=== PATIENT | male | born 1945 | race Caucasian/White ===

== ENCOUNTER 2017-02-26 22:11 | Inpatient (IN) | payer MEDICARE ==
[2017-02-26] MEDS ORDERED: KETOROLAC 30 MG/ML 1 ML VIAL IVP STA (22:30)
[2017-02-26] MEDS ORDERED: SODIUM CHLORIDE 0.9% 500 ML IV STA (22:30)
--- NOTE | 2017-02-26 22:33 | ED ---
General Adult HPI - General Chief complaint: Urogenital Stated complaint: flank pain/blood in urine Time Seen by Provider: 02/26/17 22:15 Source: patient, family, RN notes reviewed Mode of arrival: wheelchair Limitations: no limitations - History of Present Illness Initial comments: This is a 71-year-old male who presents emergency Department with a past HISTORY significant for Parkinson's syndrome and hypertension. Patient states earlier in the day started having hematuria and it's slowly gone away and then later this evening he started having some right flank pain which radiated down into his testicles. Patient states is a 7 out of 10 pain patient states his urine remains a little cloudy but he does not notice any red tinge to it anymore. Patient states he also has some neck pain on the right. Patient states pressing on his abdomen or back does not appear to make the pain worse. Patient denies any recent fever or chills. Patient denies any history of kidney stones. Patient denies any upper abdominal pain. Patient denies any nausea vomiting diarrhea. Patient denies any chest pain difficulty breathing shortness of breath. Patient denies any recent injury or trauma. Patient states he wasn't lifting anything heavy today. Patient states he is not on any blood thinners - Related Data Home Medications Medication Instructions Recorded Confirmed Amantadine HCl [Symmetrel] 100 mg PO BID 02/26/17 02/26/17 Atenolol [Tenormin] 50 mg PO DAILY 02/26/17 02/26/17 Baclofen [Lioresal] 20 mg PO HS 02/26/17 02/26/17 Carbidopa/Levodopa [Sinemet CR 1 tab PO QID 02/26/17 02/26/17 50-200 mg] Citalopram Hydrobromide [CeleXA] 10 mg PO DAILY 02/26/17 02/26/17 Allergies Allergy/AdvReac Type Severity Reaction Status Date / Time ciprofloxacin AdvReac Confusion Verified 02/26/17 22:33 nitrofurantoin AdvReac Confusion Verified 02/26/17 22:33 [From Macrobid] Review of Systems ROS Statement: Those systems with pertinent positive or pertinent negative responses have been documented in the HPI. ROS Other: All systems not noted in ROS Statement are negative. Past Medical History Past Medical History: Hypertension Additional Past Medical History / Comment(s): parkinson's, sinusitis, History of Any Multi-Drug Resistant Organisms: None Reported Past Surgical History: Adenoidectomy, Tonsillectomy Additional Past Surgical History / Comment(s): nasal polyp, colonoscopy Past Psychological History: No Psychological Hx Reported Smoking Status: Former smoker Past Alcohol Use History: Occasional Past Drug Use History: None Reported General Exam - General Exam Comments Initial Comments: GENERAL: Patient is well-developed and well-nourished. Patient is nontoxic and well- hydrated and is in mild distress. ENT: Neck is soft and supple. No significant lymphadenopathy is noted. Oropharynx is clear. Moist mucous membranes. Neck has full range of motion without eliciting any pain. EYES: The sclera were anicteric and conjunctiva were pink and moist. Extraocular movements were intact and pupils were equal round and reactive to light. Eyelids were unremarkable. PULMONARY: Unlabored respirations. Good breath sounds bilaterally. No audible rales rhonchi or wheezing was noted. CARDIOVASCULAR: There is a regular rate and rhythm without any murmurs gallops or rubs. ABDOMEN: Soft and nontender with normal bowel sounds. No palpable organomegaly was noted. There is no palpable pulsatile mass. SKIN: Skin is clear with no lesions or rashes and otherwise unremarkable. NEUROLOGIC: Patient is alert and oriented x3. Cranial nerves II through XII are grossly intact. Motor and sensory are also intact. Normal speech, volume and content. Patient has slight tremors diffusely. MUSCULOSKELETAL: Normal extremities with adequate strength and full range of motion. No lower extremity swelling or edema. No calf tenderness. LYMPHATICS: No significant lymphadenopathy is noted PSYCHIATRIC: Normal psychiatric evaluation. Limitations: no limitations Course Vital Signs 02/26/17 02/26/17 02/26/17 22:13 22:28 23:18 Temperature 97.4 F L 97.8 F Pulse Rate 58 L 69 Respiratory 18 14 Rate Blood Pressure 212/89 162/118 142/63 O2 Sat by Pulse 96 95 Oximetry 02/27/17 00:07 Temperature 98.5 F Pulse Rate 76 Respiratory 18 Rate Blood Pressure 142/65 O2 Sat by Pulse 93 L Oximetry Medical Decision Making - Medical Decision Making Patient's urine came back infected at 12:15 at this point time he met SIRS criteria and a lactic acid was drawn. Patient received 2 g Rocephin. Patient received 1.5 L of fluid. - Lab Data Result diagrams: 02/26/17 22:35 02/26/17 22:35 Lab Results 02/26/17 02/26/17 02/27/17 Range/Units 22:35 22:35 00:00 WBC 18.9 H (3.8-10.6) k/uL RBC 4.40 (4.30-5.90) m/uL Hgb 14.4 (13.0-17.5) gm/dL Hct 42.7 (39.0-53.0) % MCV 97.2 (80.0-100.0) fL MCH 32.8 (25.0-35.0) pg MCHC 33.7 (31.0-37.0) g/dL RDW 12.9 (11.5-15.5) % Plt Count 277 (150-450) k/uL Neutrophils % 80 % Lymphocytes % 14 % Monocytes % 4 % Eosinophils % 1 % Basophils % 1 % Neutrophils # 15.1 H (1.3-7.7) k/uL Lymphocytes # 2.7 (1.0-4.8) k/uL Monocytes # 0.7 (0-1.0) k/uL Eosinophils # 0.2 (0-0.7) k/uL Basophils # 0.1 (0-0.2) k/uL Sodium 142 (137-145) mmol/L Potassium 4.6 (3.5-5.1) mmol/L Chloride 108 H (98-107) mmol/L Carbon Dioxide 21 L (22-30) mmol/L Anion Gap 13 mmol/L BUN 39 H (9-20) mg/dL Creatinine 1.85 H (0.66-1.25) mg/dL Est GFR (MDRD) Af Amer 44 (>60 ml/min/1.73 sqM) Est GFR (MDRD) Non-Af 36 (>60 ml/min/1.73 sqM) Glucose 119 H (74-99) mg/dL Plasma Lactic Acid Fidel (0.7-2.0) mmol/L Calcium 9.3 (8.4-10.2) mg/dL Total Bilirubin 0.8 (0.2-1.3) mg/dL AST 29 (17-59) U/L ALT 15 L (21-72) U/L Alkaline Phosphatase 120 (38-126) U/L Total Protein 7.7 (6.3-8.2) g/dL Albumin 4.6 (3.5-5.0) g/dL Amylase 75 (30-110) U/L Lipase 157 (23-300) U/L Urine Color Light Red Urine Appearance Turbid (Clear) Urine pH 5.5 (5.0-8.0) Ur Specific [place] 1.017 (1.001-1.035) Urine Protein 2+ H (Negative) Urine Glucose (UA) Negative (Negative) Urine Ketones Negative (Negative) Urine Blood Large H (Negative) Urine Nitrite Negative (Negative) Urine Bilirubin Negative (Negative) Urine Urobilinogen <2.0 (<2.0) mg/dL Ur Leukocyte Esterase Large H (Negative) Urine RBC >182 H (0-5) /hpf Urine WBC >182 H (0-5) /hpf Urine WBC Clumps Many H (None) /hpf Urine Bacteria Many H (None) /hpf Urine Mucus Occasional H (None) /hpf 02/27/17 Range/Units 22:35 WBC (3.8-10.6) k/uL RBC (4.30-5.90) m/uL Hgb (13.0-17.5) gm/dL Hct (39.0-53.0) % MCV (80.0-100.0) fL MCH (25.0-35.0) pg MCHC (31.0-37.0) g/dL RDW (11.5-15.5) % Plt Count (150-450) k/uL Neutrophils % % Lymphocytes % % Monocytes % % Eosinophils % % Basophils % % Neutrophils # (1.3-7.7) k/uL Lymphocytes # (1.0-4.8) k/uL Monocytes # (0-1.0) k/uL Eosinophils # (0-0.7) k/uL Basophils # (0-0.2) k/uL Sodium (137-145) mmol/L Potassium (3.5-5.1) mmol/L Chloride (98-107) mmol/L Carbon Dioxide (22-30) mmol/L Anion Gap mmol/L BUN (9-20) mg/dL Creatinine (0.66-1.25) mg/dL Est GFR (MDRD) Af Amer (>60 ml/min/1.73 sqM) Est GFR (MDRD) Non-Af (>60 ml/min/1.73 sqM) Glucose (74-99) mg/dL Plasma Lactic Acid Fidel 2.1 H (0.7-2.0) mmol/L Calcium (8.4-10.2) mg/dL Total Bilirubin (0.2-1.3) mg/dL AST (17-59) U/L ALT (21-72) U/L Alkaline Phosphatase (38-126) U/L Total Protein (6.3-8.2) g/dL Albumin (3.5-5.0) g/dL Amylase (30-110) U/L Lipase (23-300) U/L Urine Color Urine Appearance (Clear) Urine pH (5.0-8.0) Ur Specific [place] (1.001-1.035) Urine Protein (Negative) Urine Glucose (UA) (Negative) Urine Ketones (Negative) Urine Blood (Negative) Urine Nitrite (Negative) Urine Bilirubin (Negative) Urine Urobilinogen (<2.0) mg/dL Ur Leukocyte Esterase (Negative) Urine RBC (0-5) /hpf Urine WBC (0-5) /hpf Urine WBC Clumps (None) /hpf Urine Bacteria (None) /hpf Urine Mucus (None) /hpf Disposition Clinical Impression: Pyelonephritis, Sepsis Disposition: ADMITTED IP TO THIS HOSP Referrals: Marcial Villagran DO [Primary Care Provider] - 1-2 days Time of Disposition: 01:15
[2017-02-26 22:53] LABS: Basophils # (A) 0.1 k/uL (0-0.2); Basophils % (A) 1 %; CH 32.5; CHCM 33.6; Eosinophils # (A) 0.2 k/uL (0-0.7); Eosinophils % (A) 1 %; HCT 42.7 % (39.0-53.0); HGB 14.4 gm/dL (13.0-17.5); Luc # (Auto) 0.21; Luc % (Auto) 1; Lymphocytes # (A) 2.7 k/uL (1.0-4.8); Lymphocytes % (A) 14 %; MCH 32.8 pg (25.0-35.0); MCHC 33.7 g/dL (31.0-37.0); MCV 97.2 fL (80.0-100.0); Mean Platelet Volume 7.6; Monocytes # (A) 0.7 k/uL (0-1.0); Monocytes % (A) 4 %; Neutrophils # (A) 15.1 k/uL (1.3-7.7); Neutrophils % (A) 80 %; RDW 12.9 % (11.5-15.5); WBC 18.9 k/uL (3.8-10.6); WBC (Perox) 18.19
[2017-02-26 23:03] LABS: Calcium 9.3 mg/dL (8.4-10.2); Potassium 4.6 mmol/L (3.5-5.1); Total Bilirubin 0.8 mg/dL (0.2-1.3); Total Protein 7.7 g/dL (6.3-8.2)
--- NOTE | 2017-02-26 23:12 | XR ---
EXAM: XR Abdomen, 1 View. CLINICAL HISTORY: Reason: abdominal pain TECHNIQUE: Frontal supine view of the abdomen/pelvis. COMPARISON: No relevant prior studies available. FINDINGS: Gastrointestinal tract: Unremarkable. No dilation. Bones: Unremarkable. No acute fracture. IMPRESSION: Normal abdomen and pelvis.
--- NOTE | 2017-02-26 23:30 | CT ---
EXAM: CT Abdomen and Pelvis Without Intravenous Contrast. CLINICAL HISTORY: Reason: abdominal pain TECHNIQUE: Axial computed tomography images of the abdomen and pelvis without intravenous contrast. CTDI is 16.94 mGy and DLP is 820.65 mGy-cm. This CT exam was performed using one or more of the following dose reduction techniques: automated exposure control, adjustment of the mA and/or kV according to patient size, and/or use of iterative reconstruction technique. COMPARISON: No relevant prior studies available. FINDINGS: Lower thorax: Small sliding type hiatal hernia. ABDOMEN: Liver: Scattered cysts throughout the liver, incompletely characterized on this examination. Gallbladder and bile ducts: Unremarkable. No calcified stones. No ductal dilation. Pancreas: Unremarkable. No ductal dilation. Spleen: Unremarkable. No splenomegaly. Adrenals: Unremarkable. No mass. Kidneys and ureters: Moderate fat stranding surrounding the right kidney and right ureter. There is mild right hydronephrosis and hydroureter, without visualized distal obstructive lesion. PELVIS: Bladder: Mild concentric thickening of the urinary bladder. No stones. Reproductive: The prostate gland is mildly enlarged. Appendix: No findings to suggest acute appendicitis. ABDOMEN + PELVIS: Stomach and bowel: Unremarkable. No obstruction. No mucosal thickening. Peritoneum: Unremarkable. No significant fluid collection. No free air. Lymph nodes: Unremarkable. No enlarged lymph nodes. Vasculature: Unremarkable. No aortic aneurysm. Bones: No acute fracture. IMPRESSION: 1. Moderate fat stranding surrounding the right kidney and ureter, without visualized urinary calculus or additional obstructive lesion. These findings could relate to a recently passed urinary calculus or urinary tract infection. Suggest correlation with urinalysis. 2. Mild concentric thickening of the urinary bladder, which could relate to cystitis or chronic outlet obstruction. 3. Mildly enlarged prostate gland.
[2017-02-26] MEDS ORDERED: SODIUM CHLORIDE 0.9% 1,000 ML IV ONE (23:57)
[2017-02-26] MEDS ORDERED: cefTRIAXone 2,000 MG in SODIUM CHLORIDE 0.9% 100 ML IVPB STA (23:57)
[2017-02-27 00:13] LABS: Appearance,Urine Turbid (Clear); Bacteria,Urine Many /hpf; Bilirubin,Urine Negative (Negative); Glucose,Urine (UA) Negative (Negative); Ketones,Urine Negative (Negative); Leukocyte Esterase,Urine Large (Negative); Mucus,Urine Occasional /hpf; Nitrite,Urine Negative (Negative); PH, Urine 5.5 (5.0-8.0); Particle Count 143047; Protein,Urine 2+ (Negative); RBC,Urine >182 /hpf (0-5); Specific Gravity,Urine 1.017 (1.001-1.035); UA Billing (MACRO vs. MICRO) MICRO; Urobilinogen,Urine <2.0 mg/dL (<2.0); WBC,Urine >182 /hpf (0-5)
[2017-02-27] MEDS ORDERED: SODIUM CHLORIDE 0.9% 1,000 ML IV ONE (01:15)
[2017-02-27 03:49] LABS: Glucose,Whole Blood 127 mg/dL (75-99)
[2017-02-27] MEDS: KETOROLAC 30 MG/ML 1 ML VIAL IVP SCH ×2 (06:28→12:30)
[2017-02-27] MEDS: ATENOLOL 50 MG TAB PO SCH (08:22)
[2017-02-27] MEDS: AMANTADINE HCL 100 MG CAP PO SCH ×2 (08:24→21:48)
[2017-02-27] MEDS: CARBIDOPA-LEVODOPA ER 50-200MG 1 EACH TABLET.ER PO SCH ×4 (08:24→21:49)
[2017-02-27] MEDS ORDERED: CITALOPRAM HYDROBROMIDE 20 MG TAB PO SCH (09:00)
[2017-02-27] MEDS: SODIUM CHLORIDE 0.9% 1,000 ML IV SCH ×2 (12:55→21:49)
--- NOTE | 2017-02-27 13:50 | HP ---
DATE OF ADMISSION: 02/27/2017 PRESENTING COMPLAINT: Right flank pain. HISTORY OF PRESENTING COMPLAINT: A very pleasant [address]agran, known chronic stable conditions include hypertension, Parkinson's disease, depression. Patient presented with sudden onset of right flank pain for one day. No fever, nausea, vomiting. Pain went down the right groin. Patient does have BPH symptoms, tired, rundown and admitted for the same. Patient is tolerating a diet. REVIEW OF SYSTEMS: CONSTITUTIONAL: Tired. HEENT: None. RESPIRATORY: None. CARDIOVASCULAR: None. GASTROINTESTINAL: As above. GENITOURINARY: As above. MUSCULOSKELETAL: Arthritis in the knees and hands. DERMATOLOGIC: None. HEMATOLOGIC: None. LYMPHATIC: None. PSYCHIATRY: History of depression. NEUROLOGICAL: None. Past history of hypertension, Parkinson's disease, depression. PAST SURGICAL HISTORY: Adenoidectomy, tonsillectomy. SOCIAL HISTORY: Is an ex-smoker, alcohol occasionally. . Family history of myocardial infarction. HOME MEDICATIONS: 1. Celexa 10 mg p.o. daily. 2. Sinemet CR 50/200 one tablet p.o. q.i.d. 3. Baclofen 20 mg q.h.s. 4. Tenormin 50 mg p.o. daily. 5. Amantadine 100 mg p.o. b.i.d. Allergies to CIPRO and NITROFURANTOIN. On examination, vital signs on presentation: Temperature 97.4, pulse 58, respiration 18, blood pressure 212/89, pulse ox 96% on room air. Repeat blood pressure is 142/63. GENERAL APPEARANCE: Average build, sitting up, not in distress. EYES: Pupils equal. Conjunctivae normal. HEENT: External appearance of nose and ears normal. Oral cavity normal. NECK: JVD not raised. Mass not palpable. RESPIRATORY: Effort normal. LUNGS: Slightly decreased breath sounds. CARDIOVASCULAR: First and second sounds normal. No edema. ABDOMEN: Soft, nontender. Liver and spleen not palpable. LYMPHATIC: No lymph node palpable in neck or axillae. PSYCHIATRY: Alert and oriented x3. Mood and affect normal. NEUROLOGICAL: Pupils equal. Cranial nerves grossly intact. Power and sensation grossly intact. MUSCULOSKELETAL: Evidence of osteoarthritis, especially in the hands and knees. INVESTIGATIONS: White count 18.9, hemoglobin 0.4. Potassium 4.6. BUN 39, creatinine 1.85, UA possible leukocyte esterase, WBC, RBC. CT scan of the abdomen and pelvis shows moderate fat stranding surrounding the right kidney with right ureter. Mild right hydronephrosis and hydroureter. ASSESSMENT: 1. This is a patient with acute right flank pain with leukocytosis, acute pain going down through the groin. Patient may have underlying stone with secondary hydronephrosis and possible pyelonephritis given that very infected-appearing urine. 2. Possible benign prostatic hypertrophy. 3. Essential hypertension. 4. Parkinson's disease, idiopathic type. 5. Depression, not otherwise specified. 6. Primary osteoarthritis of both the hands. 7. Renal failure, acute versus chronic. Will repeat a BMP in the morning to help us determine the same. PLAN: Patient given IV fluids, put on IV ceftriaxone. Home medications, will also add Flomax. Given the renal function will DC patient's Toradol. Care was discussed with the patient. Will follow.
[2017-02-27] MEDS: TAMSULOSIN 0.4 MG CAP.ER.24H PO SCH (17:19)
[2017-02-27] MEDS: BACLOFEN 10 MG TAB PO SCH (21:49)
[2017-02-27] MEDS: CITALOPRAM HYDROBROMIDE 10 MG TAB PO SCH (22:30)
[2017-02-28 07:36] VITALS: RESP 20
[2017-02-28] MEDS: CARBIDOPA-LEVODOPA ER 50-200MG 1 EACH TABLET.ER PO SCH ×4 (07:37→21:25)
[2017-02-28] MEDS: SODIUM CHLORIDE 0.9% 1,000 ML IV SCH ×3 (07:37→22:11)
[2017-02-28] MEDS: AMANTADINE HCL 100 MG CAP PO SCH ×2 (07:37→21:24)
[2017-02-28] MEDS: ATENOLOL 50 MG TAB PO SCH (07:37)
[2017-02-28 10:14] LABS: Calcium 8.3 mg/dL (8.4-10.2); Potassium 4.3 mmol/L (3.5-5.1)
[2017-02-28 11:08] LABS: Basophils # (A) 0.1 k/uL (0-0.2); Basophils % (A) 0 %; CH 32.1; CHCM 32.5; Eosinophils # (A) 0.3 k/uL (0-0.7); Eosinophils % (A) 2 %; HCT 33.5 % (39.0-53.0); HDW 2.38; Luc # (Auto) 0.14; Luc % (Auto) 1; Lymphocytes # (A) 1.6 k/uL (1.0-4.8); Lymphocytes % (A) 11 %; MCH 32.1 pg (25.0-35.0); MCHC 32.3 g/dL (31.0-37.0); MCV 99.6 fL (80.0-100.0); Mean Platelet Volume 8.7; Monocytes # (A) 0.4 k/uL (0-1.0); Monocytes % (A) 3 %; Neutrophils # (A) 11.8 k/uL (1.3-7.7); Neutrophils % (A) 83 %; RBC 3.36 m/uL (4.30-5.90); RDW 13.2 % (11.5-15.5); WBC 14.3 k/uL (3.8-10.6); WBC (Perox) 14.49
[2017-02-28 11:11] LABS: HGB 10.8 gm/dL (13.0-17.5)
[2017-02-28] MEDS: TAMSULOSIN 0.4 MG CAP.ER.24H PO SCH (17:09)
[2017-02-28] MEDS: BACLOFEN 10 MG TAB PO SCH (21:24)
[2017-02-28] MEDS: CITALOPRAM HYDROBROMIDE 10 MG TAB PO SCH (21:25)
--- NOTE | 2017-02-28 22:39 | PN ---
DATE OF SERVICE: 02/28/2017 PRESENTING COMPLAINT: Right flank pain. This patient presented with acute right flank pain with leukocytosis. Patient continues to have flank pain, but is able to ambulate, tolerating his diet and states pain is well controlled with pain medication. Review of systems done for constitutional, cardiovascular, GI, pulmonary with relevant findings as above. CURRENT MEDICATIONS: 1. Tenormin 50 mg p.o. daily. 2. Lioresal 20 mg p.o. at bedtime. 3. Sinemet ER 50/200, 1 tablet p.o. q.i.d. 4. Celexa 10 mg. 5. Tamsulosin. 6. Flomax 0.4 mg p.o. daily PHYSICAL EXAM: VITAL SIGNS: Temperature 97.6, pulse 67, respirations 20, blood pressure 125/71, oxygen saturation 92% on room air. GENERAL APPEARANCE: Patient is lying in bed, looking comfortable, just returned from the bathroom. No acute distress noted. Patient does appear tired, however, EYES: Pupils equal. Conjunctivae normal. NECK: JVD not raised. Mass not palpable. LUNGS: Diminished bilaterally. Clear to auscultation, upper lobes. RESPIRATORY: Effort normal. CARDIOVASCULAR: First and second sounds noted. No edema. ABDOMEN: Soft, nontender. Liver and spleen not palpable. PSYCHIATRY: Alert and oriented x3. Mood and affect are normal. INVESTIGATIONS: White blood cell count 14.3, hemoglobin 10.8, platelet count 186. BUN 35, creatinine ( ). ASSESSMENT: 1. This is a patient with acute right flank pain with leukocytosis, acute pain going down through the groin. Patient may have an underlying stone with secondary hydronephrosis and possible pyelonephritis, given that very infected-appearing urine. 2. Possible benign prostatic hypertrophy. 3. Essential hypertension. 4. Parkinson disease, idiopathic type. 5. Depression not otherwise specified. 6. Primary osteoarthritis of both hands. 7. Renal failure, acute versus chronic. Likely acute kidney injury secondary to possible kidney stone and hydronephrosis. PLAN: Patient will continue to receive IV fluids and antibiotic therapy. Discharge planning may occur within the next 24 to 48 hours. Will continue to follow. Patient was seen and examined by Nurse Practitioner Lidia Cee, and all elements of the case discussed with the attending, Dr. Cole. I performed a history and physical examination of this patient and discussed the same with the dictator. I agree with the dictator's note. Any additional findings/opinions, etc. will be noted.
[2017-03-01] MEDS: SODIUM CHLORIDE 0.9% 1,000 ML IV SCH ×2 (06:18→07:33)
[2017-03-01] MEDS: CARBIDOPA-LEVODOPA ER 50-200MG 1 EACH TABLET.ER PO SCH ×4 (07:33→21:06)
[2017-03-01] MEDS: AMANTADINE HCL 100 MG CAP PO SCH ×2 (07:33→20:15)
[2017-03-01] MEDS: ATENOLOL 50 MG TAB PO SCH (07:33)
[2017-03-01 09:29] LABS: Basophils % (A) 0 %; CH 31.8; CHCM 32.5; Eosinophils # (A) 0.3 k/uL (0-0.7); Eosinophils % (A) 3 %; HCT 33.5 % (39.0-53.0); HDW 2.42; HGB 10.9 gm/dL (13.0-17.5); Luc # (Auto) 0.19; Luc % (Auto) 2; Lymphocytes # (A) 1.7 k/uL (1.0-4.8); Lymphocytes % (A) 16 %; MCHC 32.5 g/dL (31.0-37.0); MCV 98.5 fL (80.0-100.0); Mean Platelet Volume 8.1; Monocytes # (A) 0.5 k/uL (0-1.0); Monocytes % (A) 5 %; Neutrophils # (A) 7.7 k/uL (1.3-7.7); Neutrophils % (A) 74 %; RDW 13.1 % (11.5-15.5); WBC 10.4 k/uL (3.8-10.6); WBC (Perox) 10.52
[2017-03-01 09:43] LABS: Anion Gap 8 mmol/L; Blood Urea Nitrogen 21 mg/dL (9-20); Calcium 8.4 mg/dL (8.4-10.2); Carbon Dioxide 18 mmol/L (22-30); Chloride 117 mmol/L (98-107); Glucose 109 mg/dL (74-99); Non-African American GFR(MDRD) >60 (>60 ml/min/1.73 sqM); Potassium 4.1 mmol/L (3.5-5.1); Sodium 143 mmol/L (137-145)
--- NOTE | 2017-03-01 10:44 | PN ---
DATE OF SERVICE: 02/28/2017 ATTENDING NOTE: This patient seen and examined by me on 02/28/17. I reviewed the note by nurse practitioner, Ms. Cee. Discussed and agree with the same. Patient admitted with acute pyelonephritis, UTI. Feeling a bit better, Did tolerate some diet. Tired. Has been out of bed. ON EXAMINATION: Afebrile. LUNGS: Decreased breath sounds. ABDOMEN: Soft, nontender. PSYCHIATRY: Awake, alert. INVESTIGATIONS: White count 14.3, hemoglobin 10.8. BUN 35, creatinine 1.45. ASSESSMENT: 1. Acute pyelonephritis. 2. Benign prostatic hypertrophy. 3. Likely acute renal failure from acute tubular necrosis, slow to respond. PLAN: Continue with antibiotics. Care was discussed with the patient. Review labs in the morning. The patient was reassured.
[2017-03-01] MEDS: ENOXAPARIN 40 MG/0.4 ML SYRINGE SQ SCH (10:54)
[2017-03-01] MEDS: TAMSULOSIN 0.4 MG CAP.ER.24H PO SCH (17:13)
[2017-03-01] MEDS: CITALOPRAM HYDROBROMIDE 10 MG TAB PO SCH (20:15)
[2017-03-01] MEDS: BACLOFEN 10 MG TAB PO SCH (20:15)
--- NOTE | 2017-03-01 22:56 | PN ---
DATE OF SERVICE: 03/01/2017 PRESENTING COMPLAINT: Right flank pain. INTERVAL HISTORY: This patient presented with acute right flank pain with leukocytosis. Today patient appears better, sitting up at the bedside, eating a meal. States he does not much care for the hospital food; however, appetite does seem to be returning. Pain is well controlled with medication. Tolerating his diet. Able to ambulate. He has only walked to and from the bathroom, however. Patient was encouraged to walk in the hallways. Review of systems was done for constitutional, cardiovascular, GI, pulmonary, with relevant findings as above. CURRENT MEDICATIONS: 1. Tenormin 50 mg p.o. daily. 2. Lioresal 20 mg p.o. at bedtime. 3. Sinemet ER 50/200 one tablet p.o. q.i.d. 4. Celexa 10 mg. 5. Tamsulosin. 6. Flomax 0.4 mg p.o. daily. PHYSICAL EXAMINATION: VITAL SIGNS: Temperature 98.5, pulse 67, respirations 20, blood pressure 122/57, oxygen saturation 92% on room air. GENERAL APPEARANCE: Patient is lying in the bed. No acute distress noted or voiced. No pain. Smiling. Conversant. EYES: Pupils equal. Conjunctivae normal. NECK: JVD not raised. Mass not palpable. LUNGS: Sounds diminished bilaterally. RESPIRATORY: Effort normal. CARDIOVASCULAR: First and second sounds noted. No edema. ABDOMEN: Soft. Mildly tender to palpation. Liver and spleen not palpable. PSYCHIATRY: Alert and oriented x3. Mood and affect normal. INVESTIGATIONS: Hemoglobin 10.9, platelet count 198. BUN 21, creatinine 1.08. Calcium 8.4. ASSESSMENT: 1. Acute pyelonephritis with secondary hydronephrosis. 2. Possible benign prostatic hypertrophy. 3. Essential hypertension. 4. Parkinson's disease, idiopathic type. 5. Depression not otherwise specified. 6. Primary osteoarthritis of both hands. 7. Renal failure, acute versus chronic. Likely acute kidney injury secondary to possible kidney stones and hydronephrosis. PLAN: Patient's IV fluids were discontinued. Appetite has been better. Will receive another dose of antibiotics today. Likely will discharge tomorrow. Patient was seen and examined by nurse practitioner Lidia Cee, and all elements of the case were discussed with the attending, Dr. Cole.
[2017-03-02] MEDS: CARBIDOPA-LEVODOPA ER 50-200MG 1 EACH TABLET.ER PO SCH (08:36)
[2017-03-02] MEDS: ATENOLOL 50 MG TAB PO SCH (08:36)
[2017-03-02] MEDS: AMANTADINE HCL 100 MG CAP PO SCH (08:36)
[2017-03-02] MEDS: ENOXAPARIN 40 MG/0.4 ML SYRINGE SQ SCH (08:36)
[2017-03-02 08:57] LABS: Anion Gap 11 mmol/L; Blood Urea Nitrogen 16 mg/dL (9-20); Calcium 8.9 mg/dL (8.4-10.2); Carbon Dioxide 22 mmol/L (22-30); Chloride 111 mmol/L (98-107); Glucose 91 mg/dL (74-99); Non-African American GFR(MDRD) >60 (>60 ml/min/1.73 sqM); Potassium 4.1 mmol/L (3.5-5.1); Sodium 144 mmol/L (137-145)
[2017-03-02 10:23] VITALS: BP 140/77; PULSE 60; TEMP 98.4
--- NOTE | 2017-03-02 18:59 | PN ---
DATE OF SERVICE: 03/01/2017 ATTENDING NOTE: This patient was seen and examined by me yesterday on 03/01/17. I reviewed the note of my nurse practitioner, Ms. Cee, discussed it with her and agree with the same. This patient was admitted with acute pyelonephritis. Doing better. Appetite is getting better, but he is tired. He has been up to the bathroom. Overall he feels better, getting IV fluids. On examination, afebrile. Blood pressure 122/57. ABDOMEN: Soft, nontender. Liver and spleen palpable. INVESTIGATIONS: Creatinine 1.08. ASSESSMENT: 1. Acute pyelonephritis with secondary hydronephrosis, clinically improving. 2. Benign prostatic hypertrophy. 3. Acute renal failure, likely acute tubular necrosis from sepsis. PLAN: Continue with another 24 hours of IV antibiotics. Care was discussed with the patient. Will discontinue the fluids later in the evening. Looking at probable discharge tomorrow.
--- NOTE | 2017-03-02 22:57 | DS ---
DATE OF ADMISSION: 02/27/2017 DATE OF DISCHARGE: 03/02/2017 FINAL DIAGNOSES: 1. Acute right pyelonephritis leading to secondary hydronephrosis with causing sepsis, present on admission. 2. Benign prostatic hypertrophy. 3. Essential hypertension. 4. Parkinson's, idiopathic type. 5. Depression, not otherwise specified. 6. Primary osteoarthritis of multiple joints. 7. Acute renal failure, likely from acute tubular necrosis sepsis present on admission. HOSPITAL COURSE: This patient who has trouble making urine because of obstruction presented with nephritis, sepsis-like picture and acute renal failure. Patient's creatinine is 1.85 on admission, did drop down to 1.08 by discharge. The patient also had white count normalized. The patient's urine culture, did grow E. coli. On the date of discharge, care was discussed with the patient and family members. On discharge, the patient is up and about. On exam: ABDOMEN: Soft. No tenderness. Liver and spleen not palpable. PSYCHIATRY: Alert and oriented x3. DISCHARGE MEDICATIONS: 1. Symmetrel 100 mg p.o. b.i.d. 2. Tenormin 50 mg p.o. daily. 3. Baclofen 20 mg q.h.s. 4. Sinemet CR 50/200, 1 tablet p.o. q.i.d. 5. Celexa 10 mg p.o. daily. 6. Ceftin 500 mg p.o. b.i.d. 20 tablets. 7. Flomax 0.4 mg p.o. before supper. Follow-up with Dr. Villagran on 03/07/2017. On examination, lungs are clear. CARDIOVASCULAR: First and second sounds normal. ABDOMEN: Soft, nontender, DISCHARGE PLANNING: More than 35 minutes.
== END 2017-03-02 13:52 | disposition home or self-care (01) | DRG 871 ==
LOC: EC 22:11 → 4MS4W 02-27 01:17
PROVIDERS: ADMIT Hospitalist; ATTEND Hospitalist
DX: A41.9 Sepsis, unspecified organism (principal); N17.0 Acute kidney failure with tubular necrosis; N13.6 Pyonephrosis; G20 Parkinson's disease; I10 Essential (primary) hypertension; M19.91 Primary osteoarthritis, unspecified site; N40.0 Benign prostatic hyperplasia without lower urinary tract symptoms; F32.9 Major depressive disorder, single episode, unspecified; Z87.891 Personal history of nicotine dependence; Z88.1 Allergy status to other antibiotic agents; Z79.899 Other long term (current) drug therapy
CPT/HCPCS: 36415; 74000; 74176; 80048; 80053; 81001; 82150; 83605; 83690; 85025; 87077; 87086; 87186; 96361; 96365; 99285

== ENCOUNTER 2017-08-26 02:03 | Emergency (ER) | payer MEDICARE ==
--- NOTE | 2017-08-26 02:29 | ED ---
General Adult HPI - General Chief complaint: Shortness of Breath Stated complaint: SOB Time Seen by Provider: 08/26/17 02:19 Source: patient, EMS, RN notes reviewed Mode of arrival: EMS Limitations: no limitations - History of Present Illness Initial comments: Patient is a pleasant 72-year-old male presenting to the emergency department with difficulty in breathing. Onset was just tonight. Patient states he feels much better after nebulizer. EMS reports patient was wheezing. Patient is currently symptom-free. Patient states he does have a fairly chronic cough and has a chronic runny nose. No chest pain. No history of chronic dyspnea. No leg pain or leg swelling. - Related Data Home Medications Medication Instructions Recorded Confirmed Amantadine HCl [Symmetrel] 100 mg PO BID 02/26/17 02/26/17 Atenolol [Tenormin] 50 mg PO DAILY 02/26/17 02/26/17 Baclofen [Lioresal] 20 mg PO HS 02/26/17 02/26/17 Carbidopa/Levodopa [Sinemet CR 1 tab PO QID 02/26/17 02/26/17 50-200 mg] Citalopram Hydrobromide [CeleXA] 10 mg PO DAILY 02/26/17 02/26/17 Previous Rx's Medication Instructions Recorded Cefuroxime Axetil [Ceftin] 500 mg PO BID #20 tab 03/02/17 Tamsulosin [Flomax] 0.4 mg PO PC-SUPPER #30 cap 03/02/17 Albuterol Inhaler [Ventolin Hfa 2 puff INHALATION Q4HR PRN #1 08/26/17 Inhaler] inhaler Allergies Allergy/AdvReac Type Severity Reaction Status Date / Time ciprofloxacin AdvReac Confusion Verified 02/26/17 22:33 nitrofurantoin AdvReac Confusion Verified 02/26/17 22:33 [From Macrobid] Review of Systems ROS Statement: Those systems with pertinent positive or pertinent negative responses have been documented in the HPI. ROS Other: All systems not noted in ROS Statement are negative. Constitutional: Denies: fever Eyes: Denies: eye pain ENT: Denies: ear pain Respiratory: Reports: cough, dyspnea Cardiovascular: Denies: chest pain Endocrine: Denies: fatigue Gastrointestinal: Denies: abdominal pain Genitourinary: Denies: urgency Musculoskeletal: Denies: back pain Skin: Denies: rash Neurological: Denies: weakness Past Medical History Past Medical History: Hypertension Additional Past Medical History / Comment(s): parkinson's, sinusitis, History of Any Multi-Drug Resistant Organisms: None Reported Past Surgical History: Adenoidectomy, Tonsillectomy Additional Past Surgical History / Comment(s): nasal polyp, colonoscopy Past Anesthesia/Blood Transfusion Reactions: No Reported Reaction Past Psychological History: Anxiety Smoking Status: Former smoker Past Alcohol Use History: Occasional Past Drug Use History: None Reported - Past Family History Mother Family Medical History: CVA/TIA, Myocardial Infarction (MD) General Exam Limitations: no limitations General appearance: alert, in no apparent distress Head exam: Present: atraumatic Eye exam: Present: normal appearance, PERRL ENT exam: Present: normal oropharynx Neck exam: Present: normal inspection Respiratory exam: Present: normal lung sounds bilaterally Cardiovascular Exam: Present: regular rate, normal rhythm Expanded Peripheral pulses: 2+: Radial (R), Radial (L), Dorsalis Pedis (R), Dorsalis Pedis (L) GI/Abdominal exam: Present: soft. Absent: tenderness Extremities exam: Present: normal inspection. Absent: pedal edema, calf tenderness Neurological exam: Present: alert Psychiatric exam: Present: normal affect, normal mood Skin exam: Present: normal color Course Vital Signs 08/26/17 08/26/17 08/26/17 02:11 02:44 02:51 Temperature 97.6 F Pulse Rate 79 78 Respiratory 22 22 18 Rate Blood Pressure 157/68 O2 Sat by Pulse 91 L 96 Oximetry 08/26/17 08/26/17 03:41 05:00 Temperature 97.7 F Pulse Rate 69 69 Respiratory 18 18 Rate Blood Pressure 105/56 117/59 O2 Sat by Pulse 97 99 Oximetry EKG Findings - EKG Comments: EKG Findings:: Normal sinus rhythm 75. DE 162. QRS 66. QT 368. QTC 410. Normal axis. Septal Q waves. No acute ST change. Medical Decision Making - Medical Decision Making Patient reevaluated and resting comfortably in bed. Still no dyspnea. Lungs remain clear to auscultation. Patient and family updated on results and need for follow-up. Specifically updated on need for repeat testing for kidney function and thyroid ultrasound. - Lab Data Result diagrams: 08/26/17 02:30 08/26/17 02:30 Lab Results 08/26/17 08/26/17 08/26/17 Range/Units 02:30 02:30 02:30 WBC 8.2 (3.8-10.6) k/uL RBC 4.22 L (4.30-5.90) m/uL Hgb 13.2 (13.0-17.5) gm/dL Hct 41.9 (39.0-53.0) % MCV 99.2 (80.0-100.0) fL MCH 31.2 (25.0-35.0) pg MCHC 31.5 (31.0-37.0) g/dL RDW 13.6 (11.5-15.5) % Plt Count 231 (150-450) k/uL Neutrophils % 61 % Lymphocytes % 29 % Monocytes % 5 % Eosinophils % 3 % Basophils % 1 % Neutrophils # 5.0 (1.3-7.7) k/uL Lymphocytes # 2.4 (1.0-4.8) k/uL Monocytes # 0.4 (0-1.0) k/uL Eosinophils # 0.2 (0-0.7) k/uL Basophils # 0.0 (0-0.2) k/uL PT (9.0-12.0) sec INR (<1.2) APTT (22.0-30.0) sec D-Dimer (<0.60) mg/L FEU Sodium 139 (137-145) mmol/L Potassium 4.1 (3.5-5.1) mmol/L Chloride 107 (98-107) mmol/L Carbon Dioxide 20 L (22-30) mmol/L Anion Gap 12 mmol/L BUN 24 H (9-20) mg/dL Creatinine 1.40 H (0.66-1.25) mg/dL Est GFR (MDRD) Af Amer >60 (>60 ml/min/1.73 sqM) Est GFR (MDRD) Non-Af 50 (>60 ml/min/1.73 sqM) Glucose 129 H (74-99) mg/dL Calcium 9.0 (8.4-10.2) mg/dL Total Bilirubin 0.5 (0.2-1.3) mg/dL AST 29 (17-59) U/L ALT 19 L (21-72) U/L Alkaline Phosphatase 111 (38-126) U/L Total Creatine Kinase 86 (55-170) U/L CK-MB (CK-2) 2.2 (0.0-2.4) ng/mL CK-MB (CK-2) Rel Index 2.6 Troponin I <0.012 (0.000-0.034) ng/mL NT-Pro-B Natriuret Pep pg/mL Total Protein 6.8 (6.3-8.2) g/dL Albumin 4.0 (3.5-5.0) g/dL 08/26/17 08/26/17 Range/Units 02:30 02:30 WBC (3.8-10.6) k/uL RBC (4.30-5.90) m/uL Hgb (13.0-17.5) gm/dL Hct (39.0-53.0) % MCV (80.0-100.0) fL MCH (25.0-35.0) pg MCHC (31.0-37.0) g/dL RDW (11.5-15.5) % Plt Count (150-450) k/uL Neutrophils % % Lymphocytes % % Monocytes % % Eosinophils % % Basophils % % Neutrophils # (1.3-7.7) k/uL Lymphocytes # (1.0-4.8) k/uL Monocytes # (0-1.0) k/uL Eosinophils # (0-0.7) k/uL Basophils # (0-0.2) k/uL PT 9.9 (9.0-12.0) sec INR 1.0 (<1.2) APTT 24.3 (22.0-30.0) sec D-Dimer 0.70 H (<0.60) mg/L FEU Sodium (137-145) mmol/L Potassium (3.5-5.1) mmol/L Chloride (98-107) mmol/L Carbon Dioxide (22-30) mmol/L Anion Gap mmol/L BUN (9-20) mg/dL Creatinine (0.66-1.25) mg/dL Est GFR (MDRD) Af Amer (>60 ml/min/1.73 sqM) Est GFR (MDRD) Non-Af (>60 ml/min/1.73 sqM) Glucose (74-99) mg/dL Calcium (8.4-10.2) mg/dL Total Bilirubin (0.2-1.3) mg/dL AST (17-59) U/L ALT (21-72) U/L Alkaline Phosphatase (38-126) U/L Total Creatine Kinase (55-170) U/L CK-MB (CK-2) (0.0-2.4) ng/mL CK-MB (CK-2) Rel Index Troponin I (0.000-0.034) ng/mL NT-Pro-B Natriuret Pep 372 pg/mL Total Protein (6.3-8.2) g/dL Albumin (3.5-5.0) g/dL - Radiology Data Radiology results: report reviewed (Computed tomography scan of the chest shows no evidence of pulmonary embolism. Likely bronchitis. Thyroid nodule.), image reviewed (Two-view chest x-ray shows no acute process.) Disposition Clinical Impression: Dyspnea Disposition: HOME SELF-CARE Condition: Stable Instructions: Acute Bronchitis (ED) Additional Instructions: Please follow-up to in the next couple of days for recheck. Have your doctor recheck your kidney test. Also have your doctor scheduled for ultrasound of the thyroid. Return for difficulty in breathing, fevers, pain, worsening symptoms or other concerns. Prescriptions: Albuterol Inhaler [Ventolin Hfa Inhaler] 2 puff INHALATION Q4HR PRN #1 inhaler PRN Reason: Dyspnea Referrals: Marcial Villagran DO [Primary Care Provider] - 1-2 days Time of Disposition: 05:25
[2017-08-26 02:47] LABS: Basophils % (A) 1 %; CHCM 32.4; Eosinophils # (A) 0.2 k/uL (0-0.7); Eosinophils % (A) 3 %; HCT 41.9 % (39.0-53.0); HGB 13.2 gm/dL (13.0-17.5); Luc # (Auto) 0.16; Luc % (Auto) 2; Lymphocytes # (A) 2.4 k/uL (1.0-4.8); Lymphocytes % (A) 29 %; MCH 31.2 pg (25.0-35.0); MCHC 31.5 g/dL (31.0-37.0); MCV 99.2 fL (80.0-100.0); Mean Platelet Volume 8.1; Monocytes # (A) 0.4 k/uL (0-1.0); Monocytes % (A) 5 %; Neutrophils % (A) 61 %; RBC 4.22 m/uL (4.30-5.90); RDW 13.6 % (11.5-15.5); WBC 8.2 k/uL (3.8-10.6); WBC (Perox) 8.52
--- NOTE | 2017-08-26 02:52 | XR ---
EXAM: XR Chest, 2 Views CLINICAL HISTORY: None. TECHNIQUE: Frontal and lateral views of the chest. COMPARISON: No relevant prior studies available. FINDINGS: Lungs: Unremarkable. No consolidation. Pleural space: Unremarkable. No pneumothorax. Heart: Unremarkable. No cardiomegaly. Mediastinum: Unremarkable. Bones/joints: Degenerative changes of the osseous structures. No acute fracture. IMPRESSION: No acute findings.
[2017-08-26 02:53] VITALS: RESP 18
[2017-08-26 02:56] LABS: ALT 19 U/L (21-72); AST 29 U/L (17-59); Alkaline Phosphatase 111 U/L (38-126); Anion Gap 12 mmol/L; Blood Urea Nitrogen 24 mg/dL (9-20); Carbon Dioxide 20 mmol/L (22-30); Chloride 107 mmol/L (98-107); Glucose 129 mg/dL (74-99); Non-African American GFR(MDRD) 50 (>60 ml/min/1.73 sqM); Potassium 4.1 mmol/L (3.5-5.1); Sodium 139 mmol/L (137-145); Total Bilirubin 0.5 mg/dL (0.2-1.3); Total Protein 6.8 g/dL (6.3-8.2)
[2017-08-26 02:57] LABS: Partial Thromboplastin Time 24.3 sec (22.0-30.0); Prothrombin Time 9.9 sec (9.0-12.0)
[2017-08-26 03:10] LABS: Creatine Kinase 86 U/L (55-170)
[2017-08-26 03:23] LABS: Creatine Kinase MB 2.2 ng/mL (0.0-2.4); Troponin I <0.012 ng/mL (0.000-0.034)
[2017-08-26 04:02] VITALS: PULSE 69; TEMP 97.7
[2017-08-26] MEDS ORDERED: SODIUM CHLORIDE 0.9% 500 ML IV STA (04:04)
[2017-08-26] MEDS ORDERED: RX INFO: IV CONTRAST WAS GIVEN 1 EACH MISC MISCELLANE PRN (04:04)
[2017-08-26 05:10] VITALS: BP 117/59
--- NOTE | 2017-08-26 05:15 | CT ---
EXAM: CT Angiography Chest With Intravenous Contrast CLINICAL HISTORY: Reason: pe protocol, dyspnea TECHNIQUE: Axial computed tomographic angiography images of the chest with intravenous contrast using pulmonary embolism protocol. CTDI is 3.0, 81. 6, 7.7 mGy and DLP is 324.9 mGy-cm. This CT exam was performed using one or more of the following dose reduction techniques: automated exposure control, adjustment of the mA and/or kV according to patient size, and/or use of iterative reconstruction technique. MIP reconstructed images were created and reviewed. COMPARISON: No relevant prior studies available. FINDINGS: Pulmonary arteries: No evidence of pulmonary embolus. Aorta: No acute findings. No thoracic aortic aneurysm. Lungs: Bronchiectasis with moderate bronchial wall thickening seen throughout both lungs, likely represent bronchitis. Biapical pleural- parenchymal scarring. Cysts are noted within both lung bases. No mass. Pleural space: Unremarkable. No significant effusion. No pneumothorax. Heart: Coronary artery calcifications. No significant pericardial effusion. No evidence of RV dysfunction. Mediastinum: Tiny hiatal hernia. Thyroid: Thyroid isthmus nodule measuring up to 17 mm. Bones/joints: Degenerative changes of the osseous structures. No acute fracture. No dislocation. Soft tissues: Unremarkable. Lymph nodes: Subcentimeter mediastinal nodes, likely reactive. Liver: Probable cysts within the liver. IMPRESSION: 1. No evidence of pulmonary embolus. 2. Bronchiectasis with moderate bronchial wall thickening seen throughout both lungs, likely representing bronchitis. 3. Thyroid isthmus nodule measuring up to 17 mm. Recommend nonemergent sonogram for further characterization.
== END 2017-08-26 05:36 | disposition home or self-care (01) ==
LOC: EC 02:03
DX: R06.00 Dyspnea, unspecified (principal); E04.1 Nontoxic single thyroid nodule; R05 Cough; R09.89 Other specified symptoms and signs involving the circulatory and respiratory systems; I10 Essential (primary) hypertension; G20 Parkinson's disease; Z87.891 Personal history of nicotine dependence; Z79.899 Other long term (current) drug therapy; Z88.1 Allergy status to other antibiotic agents
CPT/HCPCS: 36415; 93005; 85379; 83880; 80053; 82550; 82553; 84484; 85025; 85610; 85730; 71020; 71275; 99285; 96360; Q9967

== ENCOUNTER 2018-02-18 09:00 | Inpatient (IN) | payer MEDICARE ==
[2018-02-18] MEDS ORDERED: IPRATROPIUM 0.5 MG/2.5 ML NEBU INHALATION STA (09:02)
[2018-02-18] MEDS ORDERED: ALBUTEROL NEBULIZED 2.5 MG/3 ML INHALATION STA (09:02)
[2018-02-18] MEDS ORDERED: methylPREDNISolone SOD SUCCI 125 MG/2 ML VIAL IV STA (09:24)
[2018-02-18 09:35] LABS: Basophils % (A) 0 %; Eosinophils # (A) 0.1 k/uL (0-0.7); Eosinophils % (A) 1 %; HCT 42.9 % (39.0-53.0); HGB 14.4 gm/dL (13.0-17.5); Lymphocytes # (A) 1.6 k/uL (1.0-4.8); Lymphocytes % (A) 11 %; MCH 31.3 pg (25.0-35.0); MCHC 33.5 g/dL (31.0-37.0); MCV 93.6 fL (80.0-100.0); Mean Platelet Volume 8.2; Monocytes # (A) 0.8 k/uL (0-1.0); Monocytes % (A) 6 %; Neutrophils # (A) 11.9 k/uL (1.3-7.7); Neutrophils % (A) 82 %; Platelet Count 312 k/uL (150-450); RBC 4.59 m/uL (4.30-5.90); RDW 12.6 % (11.5-15.5); WBC 14.5 k/uL (3.8-10.6)
[2018-02-18 09:45] LABS: Calcium 8.9 mg/dL (8.4-10.2); Magnesium 1.9 mg/dL (1.6-2.3); Potassium 4.1 mmol/L (3.5-5.1); Total Bilirubin 0.9 mg/dL (0.2-1.3); Total Protein 6.2 g/dL (6.3-8.2)
[2018-02-18 09:55] LABS: INR 1.1 (<1.2); Prothrombin Time 10.4 sec (9.0-12.0)
[2018-02-18 10:09] LABS: Creatine Kinase MB 2.1 ng/mL (0.0-2.4); Troponin I 0.03 ng/mL (0.000-0.034)
--- NOTE | 2018-02-18 10:09 | ED ---
General Adult HPI - General Chief complaint: Shortness of Breath Stated complaint: Diff Breathing Time Seen by Provider: 02/18/18 09:02 Source: patient, RN notes reviewed, old records reviewed Mode of arrival: EMS Limitations: no limitations - History of Present Illness Initial comments: This is a 72-year-old male to the ER for evaluation. Patient does say for evaluation regarding shortness of breath severe shortness of breath history of asthma. Symptoms are left-sided progressively worsen, patient is not on home O2 being placed on oxygen and given breathing treatment per EMS he has improved. He also complains of some pain some pain in his neck - Related Data Home Medications Medication Instructions Recorded Confirmed Amantadine HCl [Symmetrel] 100 mg PO DAILY 02/26/17 02/19/18 Atenolol [Tenormin] 50 mg PO DAILY 02/26/17 02/18/18 Baclofen [Lioresal] 20 mg PO HS 02/26/17 02/18/18 Carbidopa/Levodopa [Sinemet CR 1 tab PO QID 02/26/17 02/18/18 50-200 mg] Citalopram Hydrobromide [CeleXA] 30 mg PO DAILY 02/26/17 02/18/18 Alfuzosin HCl [Uroxatral ER] 10 mg PO DAILY 09/30/17 02/18/18 Carbidopa-Levodopa ER 50-200Mg 0.5 mg PO DAILY PRN 02/18/18 02/18/18 [Sinemet CR 50-200 mg] Fluticasone Propionate [Flonase 2 spray EA NOSTRIL DAILY PRN 02/18/18 02/18/18 Allergy Relief] Previous Rx's Medication Instructions Recorded Ipratropium-Albuterol Nebulize 3 ml INHALATION TID #90 ampul.neb 02/21/18 [Duoneb 0.5 mg-3 mg/3 ml Soln] Allergies Allergy/AdvReac Type Severity Reaction Status Date / Time Penicillins Allergy Itching Verified 02/18/18 09:49 ciprofloxacin AdvReac Confusion Verified 02/18/18 09:49 nitrofurantoin AdvReac Confusion Verified 02/18/18 09:49 [From Macrobid] Review of Systems ROS Statement: Those systems with pertinent positive or pertinent negative responses have been documented in the HPI. ROS Other: All systems not noted in ROS Statement are negative. Past Medical History Past Medical History: COPD, Hypertension Additional Past Medical History / Comment(s): parkinson's, sinusitis, History of Any Multi-Drug Resistant Organisms: None Reported Past Surgical History: Adenoidectomy, Tonsillectomy Additional Past Surgical History / Comment(s): nasal polyp, colonoscopy Past Anesthesia/Blood Transfusion Reactions: No Reported Reaction Past Psychological History: Anxiety Smoking Status: Former smoker Past Alcohol Use History: Rare Past Drug Use History: None Reported - Past Family History Mother Family Medical History: CVA/TIA, Myocardial Infarction ([place]) Father Family Medical History: Cancer Additional Family Medical History / Comment(s): Father of metastatic cancer -primary unknown to patient. General Exam Limitations: no limitations General appearance: alert, anxious, in distress Head exam: Present: atraumatic, normocephalic, normal inspection Eye exam: Present: normal appearance, PERRL, EOMI. Absent: scleral icterus, conjunctival injection, periorbital swelling ENT exam: Present: normal exam, mucous membranes moist Neck exam: Present: normal inspection. Absent: tenderness, meningismus, lymphadenopathy Respiratory exam: Present: normal lung sounds bilaterally, respiratory distress , wheezes, accessory muscle use, decreased breath sounds. Absent: rales, rhonchi, stridor Cardiovascular Exam: Present: regular rate, normal rhythm, normal heart sounds. Absent: systolic murmur, diastolic murmur, rubs, gallop, clicks GI/Abdominal exam: Present: soft, normal bowel sounds. Absent: distended, tenderness, guarding, rebound, rigid Extremities exam: Present: normal inspection, full ROM, normal capillary refill. Absent: tenderness, pedal edema, joint swelling, calf tenderness Back exam: Present: normal inspection Neurological exam: Present: alert, oriented X3, CN II-XII intact Psychiatric exam: Present: normal affect, normal mood Skin exam: Present: warm, dry, intact, normal color. Absent: rash Course Vital Signs 02/18/18 02/18/18 02/18/18 09:07 09:09 09:22 Temperature 97.5 F L Pulse Rate 88 87 89 Respiratory 18 Rate Blood Pressure 131/62 O2 Sat by Pulse 96 Oximetry 02/18/18 02/18/18 02/18/18 09:36 10:21 10:55 Temperature Pulse Rate 88 Respiratory 18 Rate Blood Pressure 131/62 150/66 O2 Sat by Pulse 96 94 L Oximetry EKG Findings - EKG Comments: EKG Findings:: EKG shows normal sinus rhythm rate of 93, IL 140, QRS 76, QTc 44 to Medical Decision Making - Medical Decision Making 32 male positive significant shortness of breath, history of COPD, COPD exacerbation low pulse ox, patient will be admitted for IV hydration steroids breathing treatments. - Lab Data Result diagrams: 02/18/18 09:30 02/21/18 08:28 - Radiology Data Radiology results: report reviewed (Chest x-rays negative for acute disease), image reviewed Disposition Clinical Impression: Dyspnea, Acute exacerbation of chronic obstructive airways disease Disposition: ADMITTED IP TO THIS HOSP Condition: Good
--- NOTE | 2018-02-18 10:29 | XR ---
EXAMINATION TYPE: XR chest 2V DATE OF EXAM: 02/18/2018 COMPARISON: 10/12/2017 TECHNIQUE: PA and lateral views submitted. HISTORY: Difficulty breathing FINDINGS: Hyperinflation compatible COPD and there is persistent vague density in the right upper lobe unchange d from the prior exam. Pleural-based thickening which is somewhat nodular on the left apex also noted . No new consolidation, pleural effusion or pneumothorax. IMPRESSION: 1. No acute process. Correlate for COPD. Vague densities at which are somewhat nodular in both upper lobes stable from the prior exam. Potentially could be pleural-based.
[2018-02-18] MEDS: IPRATROPIUM-ALBUTEROL 3 ML NEB INHALATION SCH ×3 (10:44→19:23)
[2018-02-18] MEDS: SODIUM CHLORIDE 0.9% 1,000 ML IV SCH ×2 (10:50→18:30)
[2018-02-18] MEDS ORDERED: ALPRAZolam 0.25 MG TAB PO PRN (12:11)
[2018-02-18] MEDS ORDERED: ONDANSETRON 4 MG/2 ML VIAL IVP PRN (12:11)
[2018-02-18] MEDS ORDERED: NALOXONE 0.4 MG/ML 1 ML VIAL IV PRN (12:11)
[2018-02-18] MEDS ORDERED: CALCIUM CARBONATE 500 MG CHEWABLE PO PRN (12:11)
[2018-02-18] MEDS ORDERED: LACTULOSE 20 GM/30 ML CUP PO PRN (12:11)
[2018-02-18] MEDS ORDERED: CARBIDOPA-LEVODOPA ER 50-200MG 1 EACH TABLET.ER PO PRN (12:11)
[2018-02-18] MEDS ORDERED: ACETAMINOPHEN TAB 325 MG TAB PO PRN (12:11)
[2018-02-18 12:17] LABS: Glucose,Whole Blood 145 mg/dL (75-99)
[2018-02-18] MEDS ORDERED: TAMSULOSIN 0.4 MG CAP.ER.24H PO SCH (13:00)
[2018-02-18] MEDS ORDERED: CITALOPRAM HYDROBROMIDE 10 MG TAB PO SCH (13:00)
[2018-02-18] MEDS: ATENOLOL 50 MG TAB PO SCH (15:24)
[2018-02-18] MEDS: INSULIN ASPART 100 UNIT/ML 1 ML 10 ML VIAL SQ SCH ×3 (15:25→22:11)
[2018-02-18] MEDS: methylPREDNISolone SOD SUCCI 125 MG/2 ML VIAL IV SCH ×2 (15:25→18:29)
[2018-02-18] MEDS: CARBIDOPA-LEVODOPA ER 50-200MG 1 EACH TABLET.ER PO SCH ×3 (15:25→21:59)
[2018-02-18 16:26] LABS: Appearance,Urine Turbid (Clear); Bacteria,Urine Rare /hpf; Bilirubin,Urine Negative (Negative); Blood,Urine Large (Negative); Budding Yeast,Urine Occasional /hpf; Color,Urine Red; Glucose,Urine (UA) 1+ (Negative); Ketones,Urine Trace (Negative); Leukocyte Esterase,Urine Negative (Negative); Mucus,Urine Rare /hpf; Nitrite,Urine Negative (Negative); PH, Urine 5.5 (5.0-8.0); Protein,Urine 2+ (Negative); RBC,Urine >182 /hpf (0-5); Specific Gravity,Urine 1.025 (1.001-1.035); Squamous Epithelial Cell,Urine 7 /hpf (0-4); Urobilinogen,Urine <2.0 mg/dL (<2.0); WBC,Urine 24 /hpf (0-5)
[2018-02-18 17:38] LABS: Glucose,Whole Blood 189 mg/dL (75-99)
--- NOTE | 2018-02-18 20:18 | HP ---
HISTORY AND PHYSICAL DATE OF SERVICE: 02/18/2018 PRESENTING COMPLAINT: Short of breath. HISTORY OF PRESENTING COMPLAINT: A very pleasant 72-year-old patient of Dr. Villagran whose chronic stable medical conditions include hypertension, Parkinson's disease, depression, osteoarthritis, BPH, anxiety, depression. Patient yesterday became short of breath, slight cough, started having multiple bouts of sneezing, developed fever and chills at the same time. He felt really tired, weak and rundown, started perspiring. He felt as though he had no power in his limbs and decided to come in. There was really no sputum production. Patient was started on bronchodilators and IV steroids in the ER. Patient is feeling somewhat better. REVIEW OF SYSTEMS: CONSTITUTIONAL: Fever, chills, sweating. HEENT: Decreased hearing. RESPIRATORY: As above. CARDIOVASCULAR: None. GASTROINTESTINAL: None. GENITOURINARY: None. MUSCULOSKELETAL: Arthritic pain in many joints. DERMATOLOGICAL: None. HEMATOLOGICAL: None. LYMPHATICS: None. PSYCHIATRY: Anxiety, depression, controlled. NEUROLOGICAL: Tremors and weakness. PAST MEDICAL HISTORY: 1. BPH. 2. Hypertension. 3. Parkinson's disease. 4. Depression. 5. Osteoarthritis. 6. COPD. 7. Anxiety. 8. Depression. 9. Chronic sinusitis. PAST SURGICAL HISTORY: 1. Adenoidectomy. 2. Tonsillectomy. 3. Colonoscopy. SOCIAL HISTORY: He is . Has a wheeled walker. Patient smoked for 21 years, stopped in 1979. FAMILY HISTORY: Mother had a heart attack in her 50s. HOME MEDICATIONS: 1. Flonase 2 sprays each nostril daily p.r.n. 2. Sinemet CR 50/200 half a tablet daily p.r.n. 3. Sinemet CR 50/200 one tablet p.o. q.i.d. 4. Amantadine 100 mg b.i.d. 5. Celexa 30 mg p.o. daily. 6. Baclofen 20 mg at bedtime. 7. Atenolol 50 mg p.o. daily. 8. Uroxatral ER 10 mg p.o. daily. ALLERGIES: 1. PENICILLIN. 2. CIPRO. 3. NITROFURANTOIN. PHYSICAL EXAMINATION: VITAL SIGNS ON PRESENTATION: Temperature 97.5 pulse 88, respiration 18, blood pressure 131/62, pulse ox 96% on 3 L. GENERAL APPEARANCE: Average build. Sitting up, tired-appearing. EYES: Pupils equal. Conjunctivae normal. HEENT: External appearance of nose and ears normal. Oral cavity normal. NECK: JVD not raised. Mass not palpable. RESPIRATORY: Effort increased. LUNGS: Decreased breath sounds. Prolonged expiration. Some mild wheezing. CARDIOVASCULAR: First and second sounds normal. No edema. ABDOMEN: Soft, nontender. Liver and spleen not palpable. LYMPHATIC: No lymph node palpable in neck or axillae. PSYCHIATRY: Alert and oriented x3. Mood and affect normal. NEUROLOGICAL: Pupils equal. Cranial nerves grossly intact. Power and sensation grossly intact. Patient has got tremor. Minimal rigidity. INVESTIGATIONS: White count 14.5, hemoglobin 14.4, neutrophils 11.9, potassium 4.4, BUN 31, creatinine 1.38. UA showing protein 2+, some blood. EKG normal sinus rhythm. Chest x-ray shows hyperinflation. ASSESSMENT: 1. Acute chronic obstructive pulmonary disease exacerbation in an ex-smoker. 2. Probably acute viral pneumonitis presenting with a rather sudden presentation with fever, chills, sweating and nonspecific infiltrate of the chest. Patient has minimal cough and no sputum production. Highly doubt this to be a bacterial infection. 3. Benign prostatic hypertrophy. 4. Essential hypertension. 5. Parkinson's disease with acute worsening secondary to above. 6. Depression and anxiety not otherwise specified. 7. Primary osteoarthritis in multiple joints. 8. Chronic kidney disease, stage III, probably from nephrosclerosis. 9. Metabolic acidosis, probably from renal disease. PLAN: Patient is started on IV Solu-Medrol, nebulized bronchodilators. Home medications are resumed. Will hold off any antibiotics for right now and see how patient does. Will also give patient IV fluids. Will also add sodium bicarb tablets. Care was discussed with the patient. MMODL / IJN: [id number] /
[2018-02-18 20:24] LABS: Glucose,Whole Blood 166 mg/dL (75-99)
[2018-02-18] MEDS ORDERED: MELATONIN 3 MG TABLET PO PRN (21:00)
[2018-02-18 21:47] LABS: Hemoglobin A1C 5.7 % (4.0-6.0)
[2018-02-18] MEDS: CITALOPRAM HYDROBROMIDE 10 MG TAB PO SCH (21:58)
[2018-02-18] MEDS: BACLOFEN 10 MG TAB PO SCH (21:59)
[2018-02-18] MEDS: AMANTADINE HCL 100 MG CAP PO SCH (22:01)
[2018-02-18] MEDS: SODIUM BICARBONATE TAB 650 MG TAB PO SCH (22:11)
[2018-02-18] MEDS: LORATADINE 10 MG TAB PO SCH (22:11)
[2018-02-18] MEDS: methylPREDNISolone SOD SUCCI 40 MG/ML 1 ML VIAL IV SCH (23:13)
[2018-02-19] MEDS: SODIUM CHLORIDE 0.9% 1,000 ML IV SCH ×2 (05:49→16:04)
[2018-02-19] MEDS: IPRATROPIUM-ALBUTEROL 3 ML NEB INHALATION SCH ×4 (07:17→20:30)
[2018-02-19 07:24] LABS: Glucose,Whole Blood 155 mg/dL (75-99)
[2018-02-19] MEDS: ENOXAPARIN 40 MG/0.4 ML SYRINGE SQ SCH (07:45)
[2018-02-19] MEDS: INSULIN ASPART 100 UNIT/ML 1 ML 10 ML VIAL SQ SCH ×4 (07:45→22:03)
[2018-02-19] MEDS: methylPREDNISolone SOD SUCCI 40 MG/ML 1 ML VIAL IV SCH ×2 (07:46→15:59)
[2018-02-19] MEDS: LORATADINE 10 MG TAB PO SCH ×2 (07:46→21:36)
[2018-02-19] MEDS: AMANTADINE HCL 100 MG CAP PO SCH (07:46)
[2018-02-19] MEDS: SODIUM BICARBONATE TAB 650 MG TAB PO SCH ×3 (07:46→21:37)
[2018-02-19] MEDS: CARBIDOPA-LEVODOPA ER 50-200MG 1 EACH TABLET.ER PO SCH ×4 (07:46→21:37)
[2018-02-19] MEDS: ATENOLOL 50 MG TAB PO SCH (07:46)
[2018-02-19 08:57] LABS: Calcium 9.4 mg/dL (8.4-10.2); Potassium 4.6 mmol/L (3.5-5.1)
[2018-02-19 11:39] LABS: Glucose,Whole Blood 124 mg/dL (75-99)
--- NOTE | 2018-02-19 15:27 | P.CNPUL ---
History of Present Illness Consult date: 02/19/18 Requesting physician: Gonzales Cole Reason for consult: dyspnea, chest pain, other Chief complaint: Shortness of breath, chest discomfort, fever, chills, diaphoresis, sneezing History of present illness: Mr. Moeller is a 72-year-old white male patient who presented to the emergency department on 02/18/2018 at [facility] with complaints of sudden onset of shortness of breath that started on the night of 02/17/2018. Patient states he could not fall asleep that night, was having shortness of breath, some chest congestion, he was sneezing extensively. Did have some chest tightness across his anterior chest, patient tried taking the nebulized treatment, felt weak, diaphoretic, clammy, felt fever and chills. He describes standing at the kitchen sink at 4: 00 in the morning on 02/18/2018 and called his for help because he felt like he was going to pass out. Patient also describes some neck tightness at that moment as well. Did have a limited cough with production of clear sputum, prior to that episode did not have any fever or chills, did not have any nausea or vomiting. He did work out in the yard all day that day prior to his symptoms. Past medical history is that of mild COPD, with FEV1 of 81% of predicted, patient is not on any oxygen, and he is on Flonase, and ProAir Respiclick. has albuterol updrafts 4 times a day and as necessary at home. Other medical history includes benign prostatic hyperplasia, anxiety, Parkinson's disease, depression, osteoarthritis. Chest x-ray completed on 02/18 showed no acute process, hyperinflation compatible with COPD. Labs showed mild leukocytosis of WBC of 14.5, sodium of 144, potassium is 4.1, chloride is 108, carbon dioxide was 19, BUN was 31, creatinine was 1.38, troponin was borderline at 0.030, proBNP was within normal limits at 192. Patient had an anion gap of 17 on admission, has received some IV hydration with 0.9 normal saline at 100 ML per hour, and is now down to 13. Today's labs show improvement in his renal profile, BUN down to 32, creatinine is 1.16. EKG showed normal sinus rhythm. Patient was started on IV steroids, nebulized bronchodilators, and on today's exam he reports feeling better. Of note patient's urinalysis showed 2+ protein, 1+ glucose, trace ketones, rare urine bacteria, mucus, but was negative for leukocyte esterase and nitrites. Receiving the patient today in evaluation for his shortness of breath, chest tightness, chest congestion. Review of Systems All systems: negative Constitutional: Denies chills, Denies fever Eyes: denies blurred vision, denies pain Ears, nose, mouth and throat: Denies headache, Denies sore throat Cardiovascular: Denies chest pain, Denies shortness of breath Respiratory: Reports congestion, Reports dyspnea, Denies cough Gastrointestinal: Denies abdominal pain, Denies diarrhea, Denies nausea, Denies vomiting Musculoskeletal: Denies myalgias Integumentary: Denies pruritus, Denies rash Neurological: Denies numbness, Denies weakness Psychiatric: Denies anxiety, Denies depression Endocrine: Denies fatigue, Denies weight change Past Medical History Past Medical History: COPD, Hypertension, Musculoskeletal Disorder, Neurologic Disorder, Osteoarthritis (OA), Prostate Disorder Additional Past Medical History / Comment(s): Parkinson's, chronic sinusitis, past kidney infection with sepsis, BPH, arhtritis especially in bilateral hands/ fingers. History of Any Multi-Drug Resistant Organisms: None Reported Past Surgical History: Adenoidectomy, Tonsillectomy Additional Past Surgical History / Comment(s): nasal polyp, colonoscopy/benign polypectomy. Past Anesthesia/Blood Transfusion Reactions: No Reported Reaction Smoking Status: Former smoker - Past Family History Mother Family Medical History: CVA/TIA, Myocardial Infarction (ID) Additional Family Medical History / Comment(s): Mother had a ID in her mid 50' s. She had a CVA, She lived to be 80yrs old. Father Family Medical History: Cancer Additional Family Medical History / Comment(s): Father of metastatic cancer -primary unknown to patient. Medications and Allergies Home Medications Medication Instructions Recorded Confirmed Type Amantadine HCl [Symmetrel] 100 mg PO DAILY 02/26/17 02/19/18 History Atenolol [Tenormin] 50 mg PO DAILY 02/26/17 02/18/18 History Baclofen [Lioresal] 20 mg PO HS 02/26/17 02/18/18 History Carbidopa/Levodopa [Sinemet CR 1 tab PO QID 02/26/17 02/18/18 History 50-200 mg] Citalopram Hydrobromide [CeleXA] 30 mg PO DAILY 02/26/17 02/18/18 History Alfuzosin HCl [Uroxatral ER] 10 mg PO DAILY 09/30/17 02/18/18 History Carbidopa-Levodopa ER 50-200Mg 0.5 mg PO DAILY PRN 02/18/18 02/18/18 History [Sinemet CR 50-200 mg] Fluticasone Propionate [Flonase 2 spray EA NOSTRIL DAILY PRN 02/18/18 02/18/18 History Allergy Relief] Allergies Allergy/AdvReac Type Severity Reaction Status Date / Time Penicillins Allergy Itching Verified 02/18/18 09:49 ciprofloxacin AdvReac Confusion Verified 02/18/18 09:49 nitrofurantoin AdvReac Confusion Verified 02/18/18 09:49 [From Macrobid] Physical Exam Vitals: Vital Signs Temp Pulse Pulse Resp BP BP Pulse Ox 02/19/18 11:26 80 02/19/18 11:13 80 02/19/18 09:00 16 95 02/19/18 07:32 84 02/19/18 07:17 80 02/19/18 07:00 98.7 F 86 18 145/60 94 L 02/18/18 23:00 99.3 F 90 18 149/62 95 02/18/18 19:34 90 02/18/18 19:24 89 94 L 02/18/18 15:49 82 02/18/18 15:37 80 02/18/18 15:00 98.7 F 79 18 133/67 93 L Intake and Output 02/18/18 02/19/18 02/19/18 22:59 06:59 14:59 Intake Total 300 350 800 Balance 300 350 800 Intake: Intake, IV Titration 800 Amount Sodium Chloride 0.9% 1, 800 000 ml @ 100 mls/hr IV . Q10H [facility] Rx#:[id number] Oral 300 350 Other: # Voids 2 2 1 # Bowel Movements 0 1 1 Pleasant 72-year-old white male patient resting in bed, in no acute distress, awake, alert, oriented 3 - Constitutional General appearance: no acute distress - EENT Eyes: EOMI ENT: NA/AT - Neck Neck: no lymphadenopathy Carotids: bilateral: upstroke normal Thyroid: bilateral: normal size - Respiratory Respiratory: bilateral: CTA, diminished - Cardiovascular Rhythm: regular Heart sounds: normal: S1, S2 foot Peripheral Edema: bilateral: None dorsalis pedis Peripheral Pulses: bilateral: Normal - Gastrointestinal General gastrointestinal: no organomegaly, soft, no tenderness - Integumentary Integumentary: normal turgor - Neurologic Neurologic: CNII-XII intact - Musculoskeletal Musculoskeletal: gait normal, strength equal bilaterally - Psychiatric Psychiatric: A&O x's 3, appropriate affect, intact judgment & insight Results - Laboratory Findings CBC and BMP: 02/18/18 09:30 02/19/18 08:10 PT/INR, D-dimer PT 10.4 sec (9.0-12.0) 02/18/18 09:30 INR 1.1 (<1.2) 02/18/18 09:30 Abnormal lab findings: Abnormal Labs 02/18/18 02/18/18 02/18/18 09:30 09:30 12:02 WBC 14.5 H Neutrophils # 11.9 H Chloride 108 H Carbon Dioxide 19 L BUN 31 H Creatinine 1.38 H Glucose 143 H POC Glucose (mg/dL) 145 H ALT 14 L Total Protein 6.2 L Urine Protein Urine Glucose (UA) Urine Ketones Urine Blood Urine RBC Urine WBC Ur Squamous Epith Cells Urine Bacteria Urine Mucus Urine Yeast (Budding) 02/18/18 02/18/18 02/18/18 15:40 17:28 20:22 WBC Neutrophils # Chloride Carbon Dioxide BUN Creatinine Glucose POC Glucose (mg/dL) 189 H 166 H ALT Total Protein Urine Protein 2+ H Urine Glucose (UA) 1+ H Urine Ketones Trace H Urine Blood Large H Urine RBC >182 H Urine WBC 24 H Ur Squamous Epith Cells 7 H Urine Bacteria Rare H Urine Mucus Rare H Urine Yeast (Budding) Occasional H 02/19/18 02/19/18 02/19/18 07:18 08:10 11:31 WBC Neutrophils # Chloride 110 H Carbon Dioxide 20 L BUN 32 H Creatinine Glucose 150 H POC Glucose (mg/dL) 155 H 124 H ALT Total Protein Urine Protein Urine Glucose (UA) Urine Ketones Urine Blood Urine RBC Urine WBC Ur Squamous Epith Cells Urine Bacteria Urine Mucus Urine Yeast (Budding) - Diagnostic Findings Chest x-ray: report reviewed, image reviewed Additional studies: EKG reviewed Assessment and Plan Plan: Assessment #1. Shortness of breath, chest tightness, diaphoresis, near syncopal episode, under investigation. Chest x-ray was negative for any acute findings, no evidence of consolidation, pleural effusion or pneumothorax. This could possibly suggest a cardiac arrhythmia possibly triggered by exacerbation of COPD , nebulized treatments #2. Acute COPD exacerbation #3. Acute on chronic kidney disease #4. Anion gap metabolic acidosis related to acute kidney injury, improving with IV hydration #5. Mild COPD, Gold stage I, with baseline FEV1 of 81% of predicted #6. Former smoker, quit 40 years ago, but carries [id number] smoking history #7. Parkinson's disease #8. Hypertension #9. Anxiety #10. Benign prostate hypertrophy, with history of lower urinary tract infections Plan: Continue nebulized treatments, continue IV steroids, patient was improvement in his breathing. In view of patient's symptoms of chest tightness, diaphoresis, and near syncopal episode, we will consult cardiology for cardiac evaluation. Chest x-ray was reviewed, and did not show any evidence of consolidation, pleural effusion, or any other acute process. Continue current medical treatment. Monitor vital signs, lab work, renal profile and electrolytes. Obtain to follow with you I performed a history & physical examination of the patient and discussed their management with my nurse practitioner, Tere Milligan. I reviewed the nurse practitioner's note and agree with the documented findings and plan of care. Lung sounds are positive for diminished lung sounds. The findings and the impression was discussed with the patient. I attest to the documentation by the nurse practitioner. Time with Patient: Greater than 30
[2018-02-19 17:05] LABS: Glucose,Whole Blood 125 mg/dL (75-99)
[2018-02-19] MEDS: TAMSULOSIN 0.4 MG CAP.ER.24H PO SCH (17:54)
[2018-02-19 21:30] LABS: Glucose,Whole Blood 142 mg/dL (75-99)
[2018-02-19] MEDS: BACLOFEN 10 MG TAB PO SCH (21:35)
[2018-02-19] MEDS: CITALOPRAM HYDROBROMIDE 10 MG TAB PO SCH (21:36)
--- NOTE | 2018-02-20 00:19 | PN ---
PROGRESS NOTE DATE OF SERVICE: February 19, 2018. PRESENTING COMPLAINT: Short of breath. INTERVAL HISTORY: This patient presented with acute COPD exacerbation, possibly viral pneumonitis and acute exacerbation of Parkinson disease exacerbated by the viral pneumonitis. Overall, patient is feeling much better. Getting breathing treatments. Weakness is overall getting much better. REVIEW OF SYSTEMS: Done for constitutional, cardiovascular, GI, pulmonary, relevant findings as above. CURRENT MEDICATIONS: Reviewed that include nebulized bronchodilators, IV steroids, IV fluids. PHYSICAL EXAMINATION: Temperature 98.7, pulse 97, respiratory 18, blood pressure 120/60, pulse ox 93% on room air. General appearance: Sitting up in bed, awake. Eyes pupils equal. Conjunctivae normal HEENT external appearance of nose and ears normal. Oral cavity normal. Neck JVD not raised. Mass not palpable. Respiratory effort normal. Lungs improved air entry. Decreased wheezing. Cardiovascular 1st and 2nd sounds normal. No edema. ABDOMEN: Soft, nontender. Liver and spleen not palpable. Neurological: Tremors are present. INVESTIGATIONS: Potassium 4.6, BUN 32, creatinine is 1.16. ASSESSMENT: 1. Acute chronic obstructive pulmonary disease exacerbation in an ex-smoker improving. 2. Possible acute viral pneumonitis with clinical improvement. 3. Benign prostatic hypertrophy. 4. Essential hypertension. 5. Acute exacerbation of Parkinson disease from underlying viral pneumonitis, which is getting better. 6. Depression/anxiety not otherwise specified. 7. Primary osteoarthritis multiple joints. 8. Chronic kidney disease stage 3 probably from nephrosclerosis. 9. Metabolic acidosis probably from renal disease. PLAN: We will continue another 24 hours of steroids, probably switch over in the morning. The patient is clinically looking better. Continue with bicarbonate supplementation. MMODL / IJN: [id number] /
[2018-02-20 06:37] VITALS: RESP 18
[2018-02-20 07:04] LABS: Glucose,Whole Blood 108 mg/dL (75-99)
[2018-02-20] MEDS: INSULIN ASPART 100 UNIT/ML 1 ML 10 ML VIAL SQ SCH ×4 (07:57→21:49)
[2018-02-20] MEDS: AMANTADINE HCL 100 MG CAP PO SCH (08:00)
[2018-02-20] MEDS: ENOXAPARIN 40 MG/0.4 ML SYRINGE SQ SCH (08:01)
[2018-02-20] MEDS: CARBIDOPA-LEVODOPA ER 50-200MG 1 EACH TABLET.ER PO SCH ×4 (08:01→21:49)
[2018-02-20] MEDS: ATENOLOL 50 MG TAB PO SCH (08:01)
[2018-02-20] MEDS: LORATADINE 10 MG TAB PO SCH ×2 (08:02→21:49)
[2018-02-20] MEDS: SODIUM BICARBONATE TAB 650 MG TAB PO SCH ×3 (08:02→21:50)
[2018-02-20] MEDS: IPRATROPIUM-ALBUTEROL 3 ML NEB INHALATION SCH ×4 (08:17→19:00)
[2018-02-20 08:34] LABS: Calcium 8.9 mg/dL (8.4-10.2); Potassium 4.6 mmol/L (3.5-5.1)
[2018-02-20] MEDS ORDERED: predniSONE 20 MG TAB PO SCH (09:00)
[2018-02-20 11:59] LABS: Glucose,Whole Blood 116 mg/dL (75-99)
--- NOTE | 2018-02-20 12:08 | P.PN ---
Subjective Progress Note Date: 02/20/18 Principal diagnosis: Acute COPD exacerbation, near syncopal episode, diaphoresis under investigation Mr. Moeller is a 72-year-old white male patient who presented to the emergency department on 02/18/2018 at [facility] with complaints of sudden onset of shortness of breath that started on the night of 02/17/2018. Patient states he could not fall asleep that night, was having shortness of breath, some chest congestion, he was sneezing extensively. Did have some chest tightness across his anterior chest, patient tried taking the nebulized treatment, felt weak, diaphoretic, clammy, felt fever and chills. He describes standing at the kitchen sink at 4: 00 in the morning on 02/18/2018 and called his for help because he felt like he was going to pass out. Patient also describes some neck tightness at that moment as well. Did have a limited cough with production of clear sputum, prior to that episode did not have any fever or chills, did not have any nausea or vomiting. He did work out in the yard all day that day prior to his symptoms. Past medical history is that of mild COPD, with FEV1 of 81% of predicted, patient is not on any oxygen, and he is on Flonase, and ProAir Respiclick. has albuterol updrafts 4 times a day and as necessary at home. Other medical history includes benign prostatic hyperplasia, anxiety, Parkinson's disease, depression, osteoarthritis. Chest x-ray completed on 02/18 showed no acute process, hyperinflation compatible with COPD. Labs showed mild leukocytosis of WBC of 14.5, sodium of 144, potassium is 4.1, chloride is 108, carbon dioxide was 19, BUN was 31, creatinine was 1.38, troponin was borderline at 0.030, proBNP was within normal limits at 192. Patient had an anion gap of 17 on admission, has received some IV hydration with 0.9 normal saline at 100 ML per hour, and is now down to 13. Today's labs show improvement in his renal profile, BUN down to 32, creatinine is 1.16. EKG showed normal sinus rhythm. Patient was started on IV steroids, nebulized bronchodilators, and on today's exam he reports feeling better. Of note patient's urinalysis showed 2+ protein, 1+ glucose, trace ketones, rare urine bacteria, mucus, but was negative for leukocyte esterase and nitrites. Receiving the patient today in evaluation for his shortness of breath, chest tightness, chest congestion. On 02/20/2018 patient seen in follow-up on medical surgical floor. He is resting comfortably in bed, denies any acute distress, dyspnea, any chest congestion, denies any fever or chills or chest discomfort today. Lung sounds are clear to auscultation, no wheezes, no rhonchi or rales noted. No new chest x-rays today, today's lab work shows sodium of 145, chloride of 112, potassium is 4.6, carbon dioxide is 21, BUN is 36, creatinine is 1.12. Second set of troponins was done, and is 0.023. Patient is on room air, with a pulse ox of 91 -92%. Patient is being evaluated by cardiology in regards to his episode of near syncope Objective - Vital Signs Vital signs: Vital Signs Temp 98.8 F 02/20/18 06:36 Pulse 80 02/20/18 11:40 Resp 18 02/20/18 06:36 BP 105/63 02/20/18 06:36 Pulse Ox 91 L 02/20/18 06:36 Intake & Output 02/19/18 02/20/18 02/20/18 18:59 06:59 18:59 Intake Total 800 Balance 800 Intake: Intake, IV Titration 800 Amount Sodium Chloride 0.9% 1, 800 000 ml @ 100 mls/hr IV . Q10H [facility] Rx#:[id number] Other: # Voids 1 1 # Bowel Movements 1 - Exam Pleasant 72-year-old white male patient resting in bed, in no acute distress, awake, alert, oriented 3 - Constitutional General appearance: no acute distress - EENT Eyes: EOMI ENT: NA/AT - Neck Neck: no lymphadenopathy Carotids: bilateral: upstroke normal Thyroid: bilateral: normal size - Respiratory Respiratory: bilateral: CTA, diminished - Cardiovascular Rhythm: regular Heart sounds: normal: S1, S2 foot Peripheral Edema: bilateral: None dorsalis pedis Peripheral Pulses: bilateral: Normal - Gastrointestinal General gastrointestinal: no organomegaly, soft, no tenderness - Integumentary Integumentary: normal turgor - Neurologic Neurologic: CNII-XII intact - Musculoskeletal Musculoskeletal: gait normal, strength equal bilaterally - Psychiatric Psychiatric: A&O x's 3, appropriate affect, intact judgment & insight - Labs CBC & Chem 7: 02/18/18 09:30 02/20/18 07:27 Labs: Abnormal Lab Results - Last 24 Hours (Table) 02/19/18 02/19/18 02/20/18 Range/Units 16:58 21:16 07:02 Chloride (98-107) mmol/L Carbon Dioxide (22-30) mmol/L BUN (9-20) mg/dL POC Glucose (mg/dL) 125 H 142 H 108 H (75-99) mg/dL 02/20/18 Range/Units 07:27 Chloride 112 H (98-107) mmol/L Carbon Dioxide 21 L (22-30) mmol/L BUN 36 H (9-20) mg/dL POC Glucose (mg/dL) (75-99) mg/dL Microbiology - Last 24 Hours (Table) 02/19/18 19:00 Urine Culture - Preliminary Urine,Voided Assessment and Plan Plan: Assessment #1. Shortness of breath, chest tightness, diaphoresis, near syncopal episode, under investigation. Chest x-ray was negative for any acute findings, no evidence of consolidation, pleural effusion or pneumothorax. This could possibly suggest a cardiac arrhythmia possibly triggered by exacerbation of COPD , nebulized treatments #2. Acute COPD exacerbation #3. Acute on chronic kidney disease #4. Anion gap metabolic acidosis related to acute kidney injury, improving with IV hydration #5. Mild COPD, Gold stage I, with baseline FEV1 of 81% of predicted #6. Former smoker, quit 40 years ago, but carries [id number] smoking history #7. Parkinson's disease #8. Hypertension #9. Anxiety #10. Benign prostate hypertrophy, with history of lower urinary tract infections Plan: Patient continues to improve, no acute events overnight, denies any chest discomfort, palpitations, denies dyspnea, or chest congestion. Lung sounds are clear. Continue current medical treatment, continue oral steroids, nebulized bronchodilators. I performed a history & physical examination of the patient and discussed their management with my nurse practitioner, Tere Milligan. I reviewed the nurse practitioner's note and agree with the documented findings and plan of care. Lung sounds are clear. The findings and the impression was discussed with the patient. I attest to the documentation by the nurse practitioner. Time with Patient: Less than 30
[2018-02-20] MEDS ORDERED: REGADENOSON 0.4 MG/5 ML SYRINGE IV ONE (12:13)
[2018-02-20] MEDS ORDERED: AMINOPHYLLINE 500 MG/20 ML VIAL IV PRN (12:13)
--- NOTE | 2018-02-20 12:34 | ECHOF ---
Referral Reason:cp MEASUREMENTS -------- HEIGHT: 180.3 cm WEIGHT: 79.4 kg BP: IVSd: 1.0 cm (0.6 - 1.1) LVIDd: 3.2 cm (3.9 - 5.3) LVPWd: 1.0 cm (0.6 - 1.1) IVSs: 1.5 cm LVIDs: 1.8 cm LVPWs: 1.5 cm LAESV Index (A-L): 18.99 ml/m Ao Diam: 3.5 cm (2.0 - 3.7) AV Cusp: 1.9 cm (1.5 - 2.6) LA Diam: 3.6 cm (2.7 - 3.8) MV EXCURSION: 18.048 mm (> 18.000) MV EF SLOPE: 108 mm/s (70 - 150) EPSS: 0.5 cm MV E Trevor: 1.19 m/s MV DecT: 233 ms MV A Trevor: 0.97 m/s MV E/A Ratio: 1.23 RAP: 5.00 mmHg RVSP: 44.33 mmHg FINDINGS -------- Sinus rhythm. This was a technically adequate study. The left ventricular size is normal. Left ventricular wall thickness is normal. Overall left vent ricular systolic function is normal with, an EF between 55 - 60 %. The right ventricle is normal in size and function. The left atrium is normal in size. The right atrium is normal in size. There is mild aortic valve sclerosis. The mitral valve leaflets are mildly thickened. Mild mitral regurgitation is present. No regurgitation noted There is mild pulmonary hypertension. The right ventricular systolic press ure, as measured by Doppler, is 44.33mmHg. The pulmonic valve was not well visualized. There is no pulmonic regurgitation present. The aortic root size is normal. There is no pericardial effusion. CONCLUSIONS -------- 1. Sinus rhythm. 2. This was a technically adequate study. 3. The left ventricular size is normal. 4. Left ventricular wall thickness is normal. 5. Overall left ventricular systolic function is normal with, an EF between 55 - 60 %. 6. The left atrium is normal in size. 7. There is mild aortic valve sclerosis. 8. The mitral valve leaflets are mildly thickened. 9. Mild mitral regurgitation is present. 10. No regurgitation noted 11. There is mild pulmonary hypertension. 12. The right ventricular systolic pressure, as measured by Doppler, is 44.33mmHg. 13. There is no pulmonic regurgitation present. 14. The aortic root size is normal. 15. There is no pericardial effusion. PHARMACY TECH CUSTOMER SERVICE: Mary Lyons RDCS
--- NOTE | 2018-02-20 14:04 | P.CRDCN ---
History of Present Illness Consult date: 02/20/18 History of present illness: Mr. Moeller is a pleasant 72-year-old male past medical history significant for COPD, hypertension, Parkinson's disease, anxiety and former tobacco use. He denies history of coronary artery disease, dyslipidemia or diabetes mellitus. 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 We have been asked to see him in consultation for chest pain. He states Sunday night he started with shortness of breath. He states when he was laying down trying to get some sleep he was unable to catch his breath and felt as though he was getting tightening across his chest on the anterior portion from shoulder to shoulder. He was up and down throughout the night trying to catch his breath and becomes uncomfortable and he became dizzy and had to brace himself on the counter to stop himself from falling. He also was clammy and diaphoretic at that time. He decided to call EMS. When EMS arrived they placed him on oxygen and he said he felt better almost instantly. His chest pain subsided and his shortness of breath decreased. He has had no further symptoms of chest pain, dizziness or diaphoresis since admission. He denies ever having had symptoms of palpitations, nausea or vomiting. EKG on arrival reveals sinus mechanism with ST depression in lateral leads. Chest x-ray is negative for an acute cardiopulmonary process. Correlate for COPD. Vague densities somewhat nodular both upper lobes stable from prior exam. Pulmonology is following. Laboratory data reviewed, WBC 14.5, hemoglobin 14.4, platelets 312, cardiac enzymes negative 1, proBNP 192, sodium 143, potassium 4.6, magnesium 1.9 and creatinine 1.16. Current cardiac medications include atenolol 50 mg daily. He also takes amantadine, fluticasone, Sinemet, Celexa, baclofen and Uroxatral. Review of Systems At the time of my exam: CONSTITUTIONAL: Denies fever. Denies chills. EYES: Denies blurred vision. Denies vision changes. Denies eye pain. EARS, NOSE, MOUTH & THROAT: Denies headache. Denies sore throat. Denies ear pain. CARDIOVASCULAR: Denies chest pain. Denies shortness of breath. Denies orthopnea. Denies PND. Denies palpitations. RESPIRATORY: Denies cough. GASTROINTESTINAL: Denies abdominal pain. Denies diarrhea. Denies constipation. Denies nausea. Denies vomiting. MUSCULOSKELETAL: Denies myalgias. INTEGUMENTARY: Denies pruitis. Denies rash. NEUROLOGIC: Denies numbness. Denies tingling. Denies weakness. PSYCHIATRIC: Denies anxiety. Denies depression. ENDOCRINE: Denies fatigue. Denies weight change. Denies polydipsia. Denies polyurina. GENITOURINARY: Denies burning, hematuria or urgency with micturation. HEMATOLOGIC: Denies history of anemia. Denies bleeding. Past Medical History Past Medical History: COPD, Hypertension, Musculoskeletal Disorder, Neurologic Disorder, Osteoarthritis (OA), Prostate Disorder Additional Past Medical History / Comment(s): Parkinson's, chronic sinusitis, past kidney infection with sepsis, BPH, arhtritis especially in bilateral hands/ fingers. History of Any Multi-Drug Resistant Organisms: None Reported Past Surgical History: Adenoidectomy, Tonsillectomy Additional Past Surgical History / Comment(s): nasal polyp, colonoscopy/benign polypectomy. Past Anesthesia/Blood Transfusion Reactions: No Reported Reaction Smoking Status: Former smoker - Past Family History Mother Family Medical History: CVA/TIA, Myocardial Infarction (RI) Additional Family Medical History / Comment(s): Mother had a RI in her mid 50' s. She had a CVA, She lived to be 80yrs old. Father Family Medical History: Cancer Additional Family Medical History / Comment(s): Father of metastatic cancer -primary unknown to patient. Medications and Allergies Home Medications Medication Instructions Recorded Confirmed Type Amantadine HCl [Symmetrel] 100 mg PO DAILY 02/26/17 02/19/18 History Atenolol [Tenormin] 50 mg PO DAILY 02/26/17 02/18/18 History Baclofen [Lioresal] 20 mg PO HS 02/26/17 02/18/18 History Carbidopa/Levodopa [Sinemet CR 1 tab PO QID 02/26/17 02/18/18 History 50-200 mg] Citalopram Hydrobromide [CeleXA] 30 mg PO DAILY 02/26/17 02/18/18 History Alfuzosin HCl [Uroxatral ER] 10 mg PO DAILY 09/30/17 02/18/18 History Carbidopa-Levodopa ER 50-200Mg 0.5 mg PO DAILY PRN 02/18/18 02/18/18 History [Sinemet CR 50-200 mg] Fluticasone Propionate [Flonase 2 spray EA NOSTRIL DAILY PRN 02/18/18 02/18/18 History Allergy Relief] Allergies Allergy/AdvReac Type Severity Reaction Status Date / Time Penicillins Allergy Itching Verified 02/18/18 09:49 ciprofloxacin AdvReac Confusion Verified 02/18/18 09:49 nitrofurantoin AdvReac Confusion Verified 02/18/18 09:49 [From Macrobid] Physical Exam Vitals: Vital Signs Temp Pulse Pulse Resp BP Pulse Ox 02/20/18 08:30 76 02/20/18 08:17 72 02/20/18 06:36 98.8 F 68 18 105/63 91 L 02/19/18 23:00 96.5 F L 78 17 121/59 92 L 02/19/18 20:41 78 02/19/18 20:30 78 02/19/18 16:34 80 02/19/18 16:19 80 02/19/18 14:49 98.7 F 77 18 128/60 93 L 02/19/18 11:26 80 02/19/18 11:13 80 02/19/18 09:00 16 95 Intake and Output 02/19/18 02/20/18 02/20/18 22:59 06:59 14:59 Other: # Voids 1 1 Blood pressure 105/63 heart rate 68 afebrile GENERAL: This is a 72-year-old male in no apparent distress at the time of my examination. HEENT: Head is atraumatic, normocephalic. Pupils are equal, round. Sclerae anicteric. Conjunctivae are clear. Mucous membranes of the mouth are moist. Neck is supple. There is no jugular venous distention. No carotid bruit is heard. LUNGS: Clear to auscultation no wheezes, rales or rhonchi. No chest wall tenderness is noted on palpation or with deep breathing. Diminished bilaterally. HEART: Regular rate and rhythm without murmurs, rubs or gallops. S1 and S2 heard. ABDOMEN: Soft, nontender. Bowel sounds are heard. No organomegaly noted. EXTREMITIES: No evidence of peripheral edema and no calf tenderness noted. VASCULAR: Radial and dorsalis pedis pulses palpated, no evidence of clubbing. NEUROLOGIC: Patient is awake, alert and oriented x3. Results 02/18/18 09:30 02/20/18 07:27 Comprehensive Metabolic Panel 02/19/18 Range/Units 08:10 Sodium 143 (137-145) mmol/L Potassium 4.6 (3.5-5.1) mmol/L Chloride 110 H (98-107) mmol/L Carbon Dioxide 20 L (22-30) mmol/L BUN 32 H (9-20) mg/dL Creatinine 1.16 (0.66-1.25) mg/dL Glucose 150 H (74-99) mg/dL Calcium 9.4 (8.4-10.2) mg/dL Current Medications Generic Name Dose Route Start Last Admin Trade Name Freq PRN Reason Stop Dose Admin Acetaminophen 650 mg 02/18/18 12:11 Tylenol Tab PO Q6HR PRN Mild Pain or Fever > 100.5 Albuterol/Ipratropium 3 ml 02/18/18 12:00 02/20/18 08:17 Duoneb 0.5 Mg-3 Mg/3 Ml Soln INHALATION 3 ml RT-QID LYN Administration Alprazolam 0.25 mg 02/18/18 12:11 Xanax PO Q6HR PRN Anxiety Amantadine HCl 100 mg 02/20/18 09:00 02/20/18 08:00 Symmetrel PO 100 mg DAILY LYN Administration Atenolol 50 mg 02/18/18 13:00 02/20/18 08:01 Tenormin PO 50 mg DAILY LYN Administration Baclofen 20 mg 02/18/18 21:00 02/19/18 21:35 Lioresal PO 20 mg HS LYN Administration Calcium Carbonate/Glycine 1,000 mg 02/18/18 12:11 Tums PO Q4HR PRN Dyspepsia Carbidopa/Levodopa 1 each 02/18/18 13:00 02/20/18 08:01 Sinemet Er 50-200 PO 1 each QID LYN Administration Citalopram Hydrobromide 30 mg 02/18/18 21:00 02/19/18 21:36 Celexa PO 30 mg HS LYN Administration Enoxaparin Sodium 40 mg 02/19/18 09:00 02/20/18 08:01 Lovenox SQ 40 mg DAILY LYN Administration Insulin Aspart 0 unit 02/18/18 12:30 02/20/18 07:57 Novolog SQ Not Given ACHS [facility] Protocol Lactulose 20 gm 02/18/18 12:11 Cephulac PO DAILY PRN Constipation Loratadine 5 mg 02/18/18 21:00 02/20/18 08:02 Claritin PO 5 mg Q12HR LYN Administration Melatonin 3 mg 02/18/18 21:00 02/18/18 22:01 Melatonin PO 3 mg HS PRN Administration Insomnia Naloxone HCl 0.2 mg 02/18/18 12:11 Narcan IV Q2M PRN Opioid Reversal Ondansetron HCl 4 mg 02/18/18 12:11 Zofran IVP Q8HR PRN Nausea And Vomiting Prednisone 40 mg 02/20/18 09:00 02/20/18 08:02 PO 40 mg DAILY LYN Administration Sodium Bicarbonate 325 mg 02/18/18 22:00 02/20/18 08:02 Sodium Bicarbonate Tab PO 325 mg TID LYN Administration Tamsulosin HCl 0.4 mg 02/19/18 18:30 02/19/18 17:54 Flomax PO 0.4 mg PC-SUPPER LYN Administration Intake and Output 02/19/18 02/20/18 02/20/18 22:59 06:59 14:59 Other: # Voids 1 1 02/18/18 09:30 02/19/18 08:10 Assessment and Plan Assessment: ASSESSMENT 1. Chest pain, atypical for an acute coronary syndrome. EKG shows no evidence of ischemia. Will obtain second troponin to rule out an acute event. 2. Acute COPD exacerbation 3. Hypertension 4. Parkinson's disease 5. Former nicotine dependence PLAN Obtain second troponin and repeat EKG to rule out an acute coronary event. 2D echocardiogram and doppler study to assess cardiac structure and function. Telemetry monitoring for acute arrhythmia. Keep patient nothing by mouth after midnight tonight for Lexiscan stress test in the morning to rule out ischemia. Thank you kindly for this consultation. Nurse Practitioner note has been reviewed, I agree with a documented findings and plan of care. Patient was seen and examined.
[2018-02-20] MEDS: TAMSULOSIN 0.4 MG CAP.ER.24H PO SCH (17:10)
[2018-02-20 17:13] LABS: Glucose,Whole Blood 140 mg/dL (75-99)
--- NOTE | 2018-02-20 20:35 | PN ---
PROGRESS NOTE DATE OF SERVICE: February 20, 2018. PRESENTING COMPLAINT: Tired. INTERVAL HISTORY: Patient presented with acute COPD exacerbation from possible viral pneumonitis and acute exacerbation of Parkinson disease precipitated by the same. Because the patient is feeling weak, tired, and some EKG changes, seen by Cardiology today, who is going to proceed with a nuclear stress test tomorrow. Overall, patient is feeling much better. REVIEW OF SYSTEMS: Done for constitutional, cardiovascular, GI, pulmonary, relevant findings as above. The patient denies any chest pain. PHYSICAL EXAMINATION: Temperature 97, pulse 72, respiratory 18, blood pressure 130/69. Pulse ox 92% on room air. General appearance: Sitting on bed, comfortable. Eyes pupils are equal. Conjunctivae normal. HEENT: External appearance of nose and ears normal. Oral cavity normal. Neck JVD not raised. Mass not palpable. Respiratory effort normal. Lungs decreased breath sounds. Cardiovascular: 1st and 2nd sounds no edema. ABDOMEN: Soft, nontender. Liver and spleen not palpable. Psychiatry: None. Neurological: Tremors are present. INVESTIGATIONS: Potassium 4.6, creatinine 1.12, troponin 0.023. ASSESSMENT: 1. Acute chronic obstructive pulmonary disease exacerbation an ex-smoker improved. 2. Possible acute viral pneumonitis with clinical improvement. 3. Benign prostatic hypertrophy. 4. Essential hypertension. 5. Acute exacerbation of Parkinson disease from underlying viral pneumonitis nearly back to baseline. 6. Depression/anxiety not otherwise specified. 7. Primary osteoarthritis multiple joints. 8. Chronic kidney disease stage 3 probably from nephrosclerosis. 9. Metabolic acidosis from renal disease. 10.Abnormal EKG with some ST-segment depression, rule out underlying coronary disease. PLAN: Care was discussed with the patient. The patient will have a nuclear stress test tomorrow. Repeat BMP in the morning. MMODL / IJN: [id number] /
[2018-02-20 20:49] LABS: Glucose,Whole Blood 153 mg/dL (75-99)
[2018-02-20] MEDS: BACLOFEN 10 MG TAB PO SCH (21:48)
[2018-02-20] MEDS: CITALOPRAM HYDROBROMIDE 10 MG TAB PO SCH (21:49)
[2018-02-21 07:08] LABS: Glucose,Whole Blood 91 mg/dL (75-99)
[2018-02-21] MEDS: INSULIN ASPART 100 UNIT/ML 1 ML 10 ML VIAL SQ SCH ×2 (07:15→12:08)
[2018-02-21 07:55] VITALS: BP 119/59; TEMP 97.3
[2018-02-21] MEDS: LORATADINE 10 MG TAB PO SCH (08:00)
[2018-02-21] MEDS: CARBIDOPA-LEVODOPA ER 50-200MG 1 EACH TABLET.ER PO SCH ×2 (08:01→12:09)
[2018-02-21] MEDS: SODIUM BICARBONATE TAB 650 MG TAB PO SCH (08:01)
[2018-02-21] MEDS: ENOXAPARIN 40 MG/0.4 ML SYRINGE SQ SCH (08:01)
[2018-02-21] MEDS: ATENOLOL 50 MG TAB PO SCH (08:01)
[2018-02-21] MEDS: AMANTADINE HCL 100 MG CAP PO SCH (08:01)
[2018-02-21] MEDS: IPRATROPIUM-ALBUTEROL 3 ML NEB INHALATION SCH ×2 (08:58→11:36)
[2018-02-21 09:17] LABS: Calcium 9.2 mg/dL (8.4-10.2); Potassium 3.8 mmol/L (3.5-5.1)
--- NOTE | 2018-02-21 11:11 | NM ---
EXAMINATION TYPE: NM stress lexiscan cardiolite DATE OF EXAM: 02/21/2018 COMPARISON: NONE HISTORY: Chest pain TECHNIQUE: After the intravenous administration of 10.2 mCi Tc 99m Sestamibi - Cardiolite resting SP ECT images acquired 45 minutes post injection. The patient received 0.4mg Lexiscan, 26.9 mCi Tc 99m Sestamibi - Stress images obtained [address] injection FINDINGS: Review of stress and rest SPECT images demonstrates no distinct perfusion abnormality. Gated analysi s shows normal wall motion with an estimated left ventricular ejection fraction of 71 %. IMPRESSION: No scintigraphic evidence for reversible ischemia.
[2018-02-21 11:39] LABS: Glucose,Whole Blood 82 mg/dL (75-99)
--- NOTE | 2018-02-21 11:48 | EST ---
EXERCISE STRESS DATE OF SERVICE: 02/21/2018 AGE: 72 SEX: Male HT: 72 WT: 175 PROTOCOL: Lexiscan Cardiolite STAGE: DURATION OF EXERCISE: HEART RATE REST: 60 BLOOD PRESSURE REST: 138/73 MAXIMUM HEART RATE ACHIEVED: 70 MAXIMUM BLOOD PRESSURE: 173/62 85% MPHR: 124 100% MPHR: 146 METS: INDICATIONS: Chest pain. CLINICAL INFORMATION: Baseline heart rate 60 beats per minute. Baseline blood pressure 138/73 mmHg. Baseline 12-lead ECG shows sinus rhythm with normal MT, narrow QRS and nonspecific ST-T abnormalities in the inferolateral leads. Normal blood pressure 138/73 mmHg. Patient received Lexiscan infusion per protocol. No ECG changes noted. No arrhythmias noted. Nuclear portion will be reported separately. MMODL / IJN: [id number] /
[2018-02-21 11:49] VITALS: PULSE 60
--- NOTE | 2018-02-21 12:40 | P.PN ---
Subjective Mr. Moeller is a pleasant 72-year-old male past medical history significant for COPD, hypertension, Parkinson's disease, anxiety and former tobacco use. He denies history of coronary artery disease, dyslipidemia or diabetes mellitus. 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 We have been asked to see him in consultation for chest pain. He states Sunday night he started with shortness of breath. He states when he was laying down trying to get some sleep he was unable to catch his breath and felt as though he was getting tightening across his chest on the anterior portion from shoulder to shoulder. He was up and down throughout the night trying to catch his breath and becomes uncomfortable and he became dizzy and had to brace himself on the counter to stop himself from falling. He also was clammy and diaphoretic at that time. He decided to call EMS. When EMS arrived they placed him on oxygen and he said he felt better almost instantly. His chest pain subsided and his shortness of breath decreased. He has had no further symptoms of chest pain, dizziness or diaphoresis since admission. He denies ever having had symptoms of palpitations, nausea or vomiting. EKG on arrival reveals sinus mechanism with ST depression in lateral leads. Chest x-ray is negative for an acute cardiopulmonary process. Correlate for COPD. Vague densities somewhat nodular both upper lobes stable from prior exam. Pulmonology is following. Laboratory data reviewed, WBC 14.5, hemoglobin 14.4, platelets 312, cardiac enzymes negative 1, proBNP 192, sodium 143, potassium 4.6, magnesium 1.9 and creatinine 1.16. Current cardiac medications include atenolol 50 mg daily. He also takes amantadine, fluticasone, Sinemet, Celexa, baclofen and Uroxatral. 02/21/2018 Mr. Moellre is seen and examined today and stress lab. He denies any further symptoms of chest pain, shortness of breath, dizziness. He also denies symptoms of palpitations, nausea, vomiting or diaphoresis. He states in general he is feeling much better. 2-D echocardiogram and Doppler study performed yesterday reveals preserved left ventricular systolic function with ejection fraction 55-60%, mild aortic valve sclerosis and mild pulmonary hypertension with an RVSP 44.33 mmHg. Cardiac enzymes have been negative 2. Lexiscan stress test is negative for reversible cardiac ischemia. Laboratory data reviewed, sodium 147, potassium 3.8, creatinine 1.09. Blood pressure 119/ 59 heart rate 61 afebrile maintaining oxygen saturation on room air. Telemetry tracings have been unremarkable. Objective - Vital Signs Vital signs: Vital Signs Temp 97.3 F L 02/21/18 07:00 Pulse 60 02/21/18 11:48 Resp 18 02/21/18 07:00 BP 119/59 02/21/18 07:00 Pulse Ox 94 L 02/21/18 07:00 Intake & Output 02/20/18 02/21/18 02/21/18 18:59 06:59 18:59 Weight 79.379 kg Other: # Voids 1 2 - Exam GENERAL: Well-appearing, well-nourished and in no acute distress. NECK: Supple without JVD or thyromegaly. LUNGS: Breath sounds clear to auscultation bilaterally. Respiration equal and unlabored. No wheezes, rales or rhonchi. HEART: Regular rate and rhythm without murmurs, rubs or gallops. S1 and S2 heard. EXTREMITIES: Normal range of motion, no edema. No clubbing or cyanosis. Peripheral pulses intact and strong. - Labs CBC & Chem 7: 02/18/18 09:30 02/21/18 08:28 Labs: Abnormal Lab Results - Last 24 Hours (Table) 02/20/18 02/20/18 02/21/18 Range/Units 17:07 20:48 08:28 Sodium 147 H (137-145) mmol/L Chloride 111 H (98-107) mmol/L BUN 36 H (9-20) mg/dL POC Glucose (mg/dL) 140 H 153 H (75-99) mg/dL Microbiology - Last 24 Hours (Table) 02/19/18 19:00 Urine Culture - Final Urine,Voided Assessment and Plan Assessment: ASSESSMENT 1. Chest pain, atypical for an acute coronary syndrome. EKG shows no evidence of ischemia. Will obtain second troponin to rule out an acute event. 2. Acute COPD exacerbation 3. Hypertension 4. Parkinson's disease 5. Former nicotine dependence PLAN Stable from a cardiac perspective with a negative Lexiscan stress test. Follow-up with Dr. Luna in 2-3 weeks. Nurse Practitioner note has been reviewed, I agree with a documented findings and plan of care. Patient was seen and examined.
--- NOTE | 2018-02-21 15:03 | P.PN ---
Subjective Progress Note Date: 02/21/18 Principal diagnosis: Acute COPD exacerbation, near syncopal episode, diaphoresis under investigation Mr. Moeller is a 72-year-old white male patient who [facility] with complaints of sudden onset of shortness of breath that started on the night of 02/17/2018. Patient states he could not fall asleep that night, was having shortness of breath, some chest congestion, he was sneezing extensively. Did have some chest tightness across his anterior chest, patient tried taking the nebulized treatment, felt weak, diaphoretic, clammy, felt fever and chills. He describes standing at the kitchen sink at 4: 00 in the morning on 02/18/2018 and called his for help because he felt like he was going to pass out. Patient also describes some neck tightness at that moment as well. Did have a limited cough with production of clear sputum, prior to that episode did not have any fever or chills, did not have any nausea or vomiting. He did work out in the yard all day that day prior to his symptoms. Past medical history is that of mild COPD, with FEV1 of 81% of predicted, patient is not on any oxygen, and he is on Flonase, and ProAir Respiclick. has albuterol updrafts 4 times a day and as necessary at home. Other medical history includes benign prostatic hyperplasia, anxiety, Parkinson's disease, depression, osteoarthritis. Chest x-ray completed on 02/18 showed no acute process, hyperinflation compatible with COPD. Labs showed mild leukocytosis of WBC of 14.5, sodium of 144, potassium is 4.1, chloride is 108, carbon dioxide was 19, BUN was 31, creatinine was 1.38, troponin was borderline at 0.030, proBNP was within normal limits at 192. Patient had an anion gap of 17 on admission, has received some IV hydration with 0.9 normal saline at 100 ML per hour, and is now down to 13. Today's labs show improvement in his renal profile, BUN down to 32, creatinine is 1.16. EKG showed normal sinus rhythm. Patient was started on IV steroids, nebulized bronchodilators, and on today's exam he reports feeling better. Of note patient's urinalysis showed 2+ protein, 1+ glucose, trace ketones, rare urine bacteria, mucus, but was negative for leukocyte esterase and nitrites. Receiving the patient today in evaluation for his shortness of breath, chest tightness, chest congestion. On 02/20/2018 patient seen in follow-up on medical surgical floor. He is resting comfortably in bed, denies any acute distress, dyspnea, any chest congestion, denies any fever or chills or chest discomfort today. Lung sounds are clear to auscultation, no wheezes, no rhonchi or rales noted. No new chest x-rays today, today's lab work shows sodium of 145, chloride of 112, potassium is 4.6, carbon dioxide is 21, BUN is 36, creatinine is 1.12. Second set of troponins was done, and is 0.023. Patient is on room air, with a pulse ox of 91 -92%. Patient is being evaluated by cardiology in regards to his episode of near syncope. On 02/21/2018 patient seen in follow-up. He underwent a Lexiscan stress test this morning, which was negative for any evidence of ischemia. Sets of troponins were negative. From pulmonary standpoint patient denies any worsening dyspnea, today he is on room air, lung sounds are clear to auscultation. As any chest congestion, cough, wheezing or sputum production. Has not been documented for any episodes of arrhythmia while inpatient. No acute events overnight. Patient is stable for discharge home from pulmonary standpoint. Objective - Vital Signs Vital signs: Vital Signs Temp 97.3 F L 02/21/18 07:00 Pulse 60 02/21/18 11:48 Resp 18 02/21/18 07:00 BP 119/59 02/21/18 07:00 Pulse Ox 94 L 02/21/18 07:00 Intake & Output 02/20/18 02/21/18 02/21/18 18:59 06:59 18:59 Weight 79.379 kg Other: # Voids 1 2 2 - Exam Pleasant 72-year-old white male patient resting in bed, in no acute distress, awake, alert, oriented 3 - Constitutional General appearance: no acute distress - EENT Eyes: EOMI ENT: NA/AT - Neck Neck: no lymphadenopathy Carotids: bilateral: upstroke normal Thyroid: bilateral: normal size - Respiratory Respiratory: bilateral: CTA, diminished - Cardiovascular Rhythm: regular Heart sounds: normal: S1, S2 foot Peripheral Edema: bilateral: None dorsalis pedis Peripheral Pulses: bilateral: Normal - Gastrointestinal General gastrointestinal: no organomegaly, soft, no tenderness - Integumentary Integumentary: normal turgor - Neurologic Neurologic: CNII-XII intact - Musculoskeletal Musculoskeletal: gait normal, strength equal bilaterally - Psychiatric Psychiatric: A&O x's 3, appropriate affect, intact judgment & insight - Labs CBC & Chem 7: 02/18/18 09:30 02/21/18 08:28 Labs: Abnormal Lab Results - Last 24 Hours (Table) 02/20/18 02/20/18 02/21/18 Range/Units 17:07 20:48 08:28 Sodium 147 H (137-145) mmol/L Chloride 111 H (98-107) mmol/L BUN 36 H (9-20) mg/dL POC Glucose (mg/dL) 140 H 153 H (75-99) mg/dL Microbiology - Last 24 Hours (Table) 02/19/18 19:00 Urine Culture - Final Urine,Voided Assessment and Plan Plan: Assessment #1. Shortness of breath, chest tightness, diaphoresis, near syncopal episode, under investigation. Chest x-ray was negative for any acute findings, no evidence of consolidation, pleural effusion or pneumothorax. This could possibly suggest a cardiac arrhythmia possibly triggered by exacerbation of COPD , nebulized treatments #2. Acute COPD exacerbation, recovered #3. Acute on chronic kidney disease #4. Anion gap metabolic acidosis related to acute kidney injury, improving with IV hydration #5. Mild COPD, Gold stage I, with baseline FEV1 of 81% of predicted #6. Former smoker, quit 40 years ago, but carries [id number] smoking history #7. Parkinson's disease #8. Hypertension #9. Anxiety #10. Benign prostate hypertrophy, with history of lower urinary tract infections Plan: Patient continues to improve, no acute complaints, no shortness of breath no chest pain. He had a Lexiscan stress test which was negative. Has been cleared for discharge from cardiology standpoint. Lung sounds are clear, patient is on room air, denies any shortness of breath. From pulmonary standpoint patient is stable for discharge home today I performed a history & physical examination of the patient and discussed their management with my nurse practitioner, Tere Milligan. I reviewed the nurse practitioner's note and agree with the documented findings and plan of care. Lung sounds are clear. The findings and the impression was discussed with the patient. I attest to the documentation by the nurse practitioner. Time with Patient: Less than 30
--- NOTE | 2018-02-22 07:31 | DS ---
DISCHARGE SUMMARY DATE OF ADMISSION: 02/18/2018 DATE OF DISCHARGE: 02/21/2018 FINAL DIAGNOSES: 1. Acute chronic obstructive pulmonary disease exacerbation in an ex-smoker. 2. Acute viral pneumonitis, present on admission. 3. Benign prostatic hypertrophy. 4. Essential hypertension. 5. Acute exacerbation of Parkinson disease precipitated by the viral pneumonitis causing generalized weakness. 6. Depression and anxiety, not otherwise specified. 7. Primary osteoarthritis multiple joints. 8. Chronic kidney disease stage 3 from nephrosclerosis. 9. Metabolic acidosis from renal failure. 10.Baseline abnormal EKG. CONSULTATION: Dr. Levy from Pulmonary; Dr. Luna from Cardiology. HOSPITAL COURSE: This patient presented with what appeared to be viral pneumonitis precipitating weakness of his Parkinson disease. The patient's pulmonary symptoms improved. Patient's Parkinson disease came back to his baseline. Patient had some ST-segment changes on the EKG. Seen by Dr. Luna. Patient did undergo a Lexiscan stress test that came back to be negative. The patient is feeling good, quite back to his baseline. ON EXAMINATION: LUNGS: Fair entry. CARDIOVASCULAR: First and second sounds normal, mild tremors. The patient did have a 2-D echocardiogram that showed preserved LV function 55% to 60%. DISCHARGE MEDICATIONS: 1. Amantadine 100 mg p.o. daily. 2. Tenormin 50 mg p.o. daily. 3. Baclofen 20 mg at bedtime. 4. Sinemet CR 50/200 one tablet p.o. q.i.d. 5. Celexa 30 mg p.o. daily. 6. Uroxatral ER 10 mg daily. 7. Sinemet CR 50/200 half a tablet p.o. daily p.r.n. 8. Flonase p.r.n. 9. DuoNeb t.i.d. Follow up with Dr. Levy in 1 week, Dr. Luna in 2 weeks, Dr. Villagran in 1 week. MMODL / IJN: [id number] /
== END 2018-02-21 14:21 | disposition home or self-care (01) | DRG 190 ==
LOC: EC 09:00 → 4MS4W 09:25
PROVIDERS: ADMIT Hospitalist; ATTEND Hospitalist
DX: J44.0 Chronic obstructive pulmonary disease with (acute) lower respiratory infection (principal); J12.9 Viral pneumonia, unspecified; E87.2 Acidosis; N17.9 Acute kidney failure, unspecified; J44.1 Chronic obstructive pulmonary disease with (acute) exacerbation; F32.9 Major depressive disorder, single episode, unspecified; F41.9 Anxiety disorder, unspecified; G20 Parkinson's disease; I12.9 Hypertensive chronic kidney disease with stage 1 through stage 4 chronic kidney disease, or unspecified chronic kidney disease; I27.20 Pulmonary hypertension, unspecified; I35.8 Other nonrheumatic aortic valve disorders; J32.9 Chronic sinusitis, unspecified; M15.9 Polyosteoarthritis, unspecified; N18.3 Chronic kidney disease, stage 3 (moderate); N40.0 Benign prostatic hyperplasia without lower urinary tract symptoms; Z79.899 Other long term (current) drug therapy; Z80.9 Family history of malignant neoplasm, unspecified; Z82.3 Family history of stroke; Z82.49 Family history of ischemic heart disease and other diseases of the circulatory system; Z87.891 Personal history of nicotine dependence; R94.31 Abnormal electrocardiogram [ECG] [EKG]; Z79.51 Long term (current) use of inhaled steroids; Z88.1 Allergy status to other antibiotic agents; Z88.0 Allergy status to penicillin; Z88.8 Allergy status to other drugs, medicaments and biological substances
CPT/HCPCS: 36415; 71046; 78452; 80048; 80053; 81001; 82550; 82553; 83036; 83735; 83880; 84484; 85025; 85610; 85730; 87086; 93005; 93017; 93306; 94640; 94760; 96374; 99285

== ENCOUNTER 2023-08-19 02:55 | Observation (INO) | payer MEDICARE ==
[2023-08-19 05:02] LABS: Basophils % (A) 0 %; Eosinophils % (A) 0 %; HCT 37.5 % (39.0-53.0); HGB 12.2 gm/dL (13.0-17.5); Lymphocytes # (A) 1.7 k/uL (1.0-4.8); Lymphocytes % (A) 10 %; MCH 32.4 pg (25.0-35.0); MCHC 32.6 g/dL (31.0-37.0); MCV 99.6 fL (80.0-100.0); Mean Platelet Volume 8.9; Monocytes # (A) 0.7 k/uL (0-1.0); Monocytes % (A) 4 %; Neutrophils # (A) 15.1 k/uL (1.3-7.7); Neutrophils % (A) 86 %; Platelet Count 317 k/uL (150-450); RBC 3.76 m/uL (4.30-5.90); RDW 12.1 % (11.5-15.5); WBC 17.6 k/uL (3.8-10.6)
[2023-08-19 05:12] LABS: African American GFR (CKD) 44 (>60 ml/min/1.73 sqM); Anion Gap 12 mmol/L; Blood Urea Nitrogen 55 mg/dL (9-20); Calcium 9.7 mg/dL (8.4-10.2); Carbon Dioxide 18 mmol/L (22-30); Chloride 111 mmol/L (98-107); Glucose 120 mg/dL (74-99); Non-African American GFR(CKD) 38 (>60 ml/min/1.73 sqM); Sodium 141 mmol/L (137-145)
[2023-08-19] MEDS ORDERED: DICYCLOMINE 10 MG/ML 2 ML AMP IM STA (05:33)
[2023-08-19] MEDS ORDERED: SODIUM CHLORIDE 0.9% 500 ML 500 ML IV STA (05:34)
--- NOTE | 2023-08-19 06:46 | XR ---
EXAMINATION TYPE: XR KUB portable DATE OF EXAM: 08/19/2023 COMPARISON: KUB 02/26/2017 HISTORY: Abdominal pain TECHNIQUE: Single supine KUB image of the abdomen is obtained FINDINGS: Small bowel demonstrates no evidence for dilatation or air fluid levels. Gas and fecal material is seen throughout the colon. Left-sided pelvic phleboliths. The lung bases are clear. The osseous structures are intact. Mild S-shaped scoliotic curvature of the visualized cervical lumba r spine. IMPRESSION: Moderate colonic stool burden. Correlate for constipation.
[2023-08-19] MEDS ORDERED: NALOXONE 0.4 MG/ML 1 ML VIAL IV PRN (06:50)
[2023-08-19] MEDS ORDERED: LACTULOSE 20 GM/30 ML CUP PO PRN (06:50)
--- NOTE | 2023-08-19 06:50 | ED ---
General Adult HPI - General Chief complaint: Back Pain/Injury Stated complaint: Weakness Time Seen by Provider: 08/19/23 04:07 Source: patient Mode of arrival: EMS Limitations: no limitations - History of Present Illness Initial comments: This patient is an 78-year-old man, with history of Parkinson's disease, who presents evaluation of severe, intermittent, abdominal pains. He also complains of constipation. Patient feels like he needs to have bowel movement but has not been able. The patient's family has attempted treating this with a suppository, with laxative, and did attempt a disimpaction at home. They state that they were not able to relieve the symptoms and there was not really much stool passed. Patient denies fever or chills. He did have a fall approximately 3 days ago, and has been taking codeine to help with the chest wall pain that he has. -: hour(s) Location: abdomen Radiation: non-radiation Quality: sharp Consistency: colicky Improves with: none Worsens with: none Associated Symptoms: other (Constipation) Treatments Prior to Arrival: none - Related Data Home Medications Medication Instructions Recorded Confirmed Baclofen [Lioresal] 20 mg PO HS PRN 02/26/17 08/19/23 Carbidopa/Levodopa [Sinemet CR 1 tab PO QID 02/26/17 08/19/23 50-200 mg] Citalopram Hydrobromide [CeleXA] 30 mg PO DAILY 02/26/17 08/19/23 Alfuzosin HCl [Uroxatral ER] 10 mg PO DAILY 09/30/17 08/19/23 Fluticasone Propionate [Flonase 2 spr EA NOSTRIL DAILY PRN 02/18/18 08/19/23 Allergy Relief] Acetaminophen-Codeine 300-30mg 1 tab PO Q6H PRN 08/19/23 08/19/23 [Tylenol w/codeine #3] Albuterol Nebulized [Ventolin 2.5 mg INHALATION RT-BID 08/19/23 08/19/23 Nebulized] Ascorbic Acid [Vitamin C] 250 mg PO DAILY 08/19/23 08/19/23 Budesonide [Pulmicort] 0.5 mg INHALATION RT-BID 08/19/23 08/19/23 Carbidopa-Levodopa 25-100 mg 0.5 tab PO BID 08/19/23 08/19/23 [Sinemet 25-100 mg] Oregano Oil/Flaxseed Oil [Oregano 1 cap PO DAILY 08/19/23 08/19/23 Oil 50-25 mg Capsule] Ubidecarenone [Co Q-10] 400 mg PO DAILY 08/19/23 08/19/23 Vitamin B Complex 1 cap PO DAILY 08/19/23 08/19/23 Previous Rx's Medication Instructions Recorded Metoprolol Tartrate [Lopressor] 25 mg PO TID #90 tablet 08/20/23 Psyllium Husk 100% [Metamucil 6 gm PO BID #60 packet 08/20/23 Packet] amantadine HCL [Amantadine] 100 mg PO DAILY #0 08/20/23 Allergies Allergy/AdvReac Type Severity Reaction Status Date / Time Penicillins Allergy Itching Verified 08/19/23 02:59 ciprofloxacin AdvReac Confusion Verified 08/19/23 02:59 nitrofurantoin AdvReac Confusion Verified 08/19/23 02:59 [From Macrobid] Review of Systems ROS Statement: Those systems with pertinent positive or pertinent negative responses have been documented in the HPI. ROS Other: All systems not noted in ROS Statement are negative. Constitutional: Denies: fever, chills Respiratory: Denies: cough, dyspnea Cardiovascular: Denies: chest pain, palpitations, edema Gastrointestinal: Reports: abdominal pain, constipation. Denies: nausea, vomiting, diarrhea, melena, hematochezia Genitourinary: Denies: dysuria, hematuria, testicular pain Musculoskeletal: Denies: back pain Skin: Denies: rash Neurological: Denies: headache, weakness, numbness Past Medical History Past Medical History: COPD, Hypertension Additional Past Medical History / Comment(s): parkinson's, sinusitis, History of Any Multi-Drug Resistant Organisms: None Reported Past Surgical History: Adenoidectomy, Tonsillectomy Additional Past Surgical History / Comment(s): nasal polyp, colonoscopy Past Anesthesia/Blood Transfusion Reactions: No Reported Reaction Past Psychological History: Anxiety Past Alcohol Use History: Rare Past Drug Use History: None Reported - Past Family History Mother Family Medical History: CVA/TIA, Myocardial Infarction ([place]) Father Family Medical History: Cancer Additional Family Medical History / Comment(s): Father of metastatic cancer-primary unknown to patient. General Exam Limitations: no limitations General appearance: alert, in no apparent distress Head exam: Present: atraumatic, normocephalic Eye exam: Present: normal appearance. Absent: scleral icterus, conjunctival injection ENT exam: Present: normal oropharynx Neck exam: Present: normal inspection Respiratory exam: Present: normal lung sounds bilaterally. Absent: respiratory distress, wheezes, rales, rhonchi, stridor Cardiovascular Exam: Present: regular rate, normal rhythm, normal heart sounds. Absent: systolic murmur, diastolic murmur, rubs, gallop GI/Abdominal exam: Present: soft. Absent: distended, tenderness, guarding, rebound, rigid, mass Extremities exam: Present: normal inspection, normal capillary refill. Absent: pedal edema, calf tenderness Back exam: Present: normal inspection. Absent: CVA tenderness (R), CVA tenderness (L) Neurological exam: Present: alert Skin exam: Present: warm, dry, intact, normal color. Absent: rash Course Vital Signs 08/19/23 08/19/23 08/19/23 02:56 03:24 04:00 Temperature 98.3 F Pulse Rate 89 Respiratory 18 Rate Blood Pressure 173/90 173/90 176/81 O2 Sat by Pulse 96 96 Oximetry 08/19/23 08/19/23 08/19/23 05:00 06:00 10:13 Temperature 97.8 F Pulse Rate 68 87 Respiratory 18 Rate Blood Pressure 182/89 180/83 168/45 O2 Sat by Pulse 96 95 95 Oximetry Medical Decision Making - Medical Decision Making Patient had chest x-ray which I interpreted as negative for acute infiltrate, and thorax, congestive heart failure The patient had abdominal x-ray I interpreted to show increased (probable constipation The patient had CT of the abdomen which I interpreted to show constipation no free air or obstruction Was pt. sent in by a medical professional or institution (, PA, PANEL BEATER, urgent care, hospital, or long term...) When possible be specific @ -[No] Did you speak to anyone other than the patient for history (EMS, parent, family, police, friend...)? What history was obtained from this source @ -[Patient's family members did contribute significant history Did you review nursing and triage notes (agree or disagree)? Why? @ -[I reviewed and agree with nursing and triage notes] Were old charts reviewed (outside hosp., previous admission, EMS record, old EKG, old radiological studies, urgent care reports/EKG's, long term records)? Report findings @ -[No old charts were reviewed] Differential Diagnosis (chest pain, altered mental status, abdominal pain women, abdominal pain men, vaginal bleeding, weakness, fever, dyspnea, syncope, headache, dizziness, GI bleed, back pain, seizure, CVA, palpatations, mental health, musculoskeletal)? @ -MDM differential abdominal pain EKG interpreted by me (3pts min.). @ -[As above] X-rays interpreted by me (1pt min.). @ -[I interpreted as above CT interpreted by me (1pt min.). @ -[I interpreted as above U/S interpreted by me (1pt. min.). @ -[None done] What testing was considered but not performed or refused? (CT, X-rays, U/S, labs)? Why? @ -[None] What meds were considered but not given or refused? Why? @ -[None] Did you discuss the management of the patient with other professionals (professionals i.e. , PA, PANEL BEATER, lab, RT, psych nurse, social sciences professor, hydrogeology professor, teacher, donor relations officer, shoe caser)? Give summary @ -[Case discussed with admitting physician, given recommendations are incorporated Was smoking cessation discussed for >3mins.? @ -[No] Was critical care preformed (if so, how long)? @ -[No] Were there social determinants of health that impacted care today? How? (Homelessness, low income, unemployed, alcoholism, drug addiction, transportatio n, low edu. Level, literacy, decrease access to med. care, correction, rehab)? @ -[No] Was there de-escalation of care discussed even if they declined (Discuss DNR or withdrawal of care, Hospice)? DNR status @ -[No] What co-morbidities impacted this encounter? (DM, HTN, Smoking, COPD, CAD, Cancer, CVA, ARF, Chemo, Hep., AIDS, mental health diagnosis, sleep apnea, morbid obesity)? @ -[None] Was patient admitted / discharged? Hospital course, mention meds given and route, prescriptions, significant lab abnormalities, going to OR and other pertinent info. @ -[Patient is an 78-year-old man with significant abdominal pain due to constipation. Not able to disimpact in the department has the stool is still too high. The patient will be given oral medications and did have an enema which did produce small bowel movement Undiagnosed new problem with uncertain prognosis? @ -[No] Drug Therapy requiring intensive monitoring for toxicity (Heparin, Nitro, Insulin, Cardizem)? @ -[No] Were any procedures done? @ -[No] Diagnosis/symptom? @ -[Acute abdominal pain Constipation Acute, or Chronic, or Acute on Chronic? @ -[Acute Uncomplicated (without systemic symptoms) or Complicated (systemic symptoms)? @ -[Uncomplicated Side effects of treatment? @ -[No] Exacerbation, Progression, or Severe Exacerbation? @ -[No] Poses a threat to life or bodily function? How? (Chest pain, [place], [place], pneumonia, PE, COPD, DKA, ARF, appy, cholecystitis, CVA, Diverticulitis, Homicidal, Suicidal, threat to staff... and all critical care pts) @ -[No] - Lab Data Result diagrams: 08/20/23 06:50 08/20/23 06:50 Lab Results 08/19/23 08/19/23 08/19/23 Range/Units 04:23 04:23 04:23 WBC 17.6 H (3.8-10.6) k/uL RBC 3.76 L (4.30-5.90) m/uL Hgb 12.2 L (13.0-17.5) gm/dL Hct 37.5 L (39.0-53.0) % MCV 99.6 (80.0-100.0) fL MCH 32.4 (25.0-35.0) pg MCHC 32.6 (31.0-37.0) g/dL RDW 12.1 (11.5-15.5) % Plt Count 317 (150-450) k/uL MPV 8.9 Neutrophils % 86 % Lymphocytes % 10 % Monocytes % 4 % Eosinophils % 0 % Basophils % 0 % Neutrophils # 15.1 H (1.3-7.7) k/uL Lymphocytes # 1.7 (1.0-4.8) k/uL Monocytes # 0.7 (0-1.0) k/uL Eosinophils # 0.0 (0-0.7) k/uL Basophils # 0.0 (0-0.2) k/uL Sodium 141 (137-145) mmol/L Potassium 5.0 (3.5-5.1) mmol/L Chloride 111 H (98-107) mmol/L Carbon Dioxide 18 L (22-30) mmol/L Anion Gap 12 mmol/L BUN 55 H (9-20) mg/dL Creatinine 1.67 H (0.66-1.25) mg/dL Est GFR (CKD-EPI)AfAm 44 (>60 ml/min/1.73 sqM) Est GFR (CKD-EPI)NonAf 38 (>60 ml/min/1.73 sqM) Glucose 120 H (74-99) mg/dL Lactic Ac Sepsis Rflx Plasma Lactic Acid Fidel 2.4 H* (0.7-2.0) mmol/L Calcium 9.7 (8.4-10.2) mg/dL 08/19/23 Range/Units 05:26 WBC (3.8-10.6) k/uL RBC (4.30-5.90) m/uL Hgb (13.0-17.5) gm/dL Hct (39.0-53.0) % MCV (80.0-100.0) fL MCH (25.0-35.0) pg MCHC (31.0-37.0) g/dL RDW (11.5-15.5) % Plt Count (150-450) k/uL MPV Neutrophils % % Lymphocytes % % Monocytes % % Eosinophils % % Basophils % % Neutrophils # (1.3-7.7) k/uL Lymphocytes # (1.0-4.8) k/uL Monocytes # (0-1.0) k/uL Eosinophils # (0-0.7) k/uL Basophils # (0-0.2) k/uL Sodium (137-145) mmol/L Potassium (3.5-5.1) mmol/L Chloride (98-107) mmol/L Carbon Dioxide (22-30) mmol/L Anion Gap mmol/L BUN (9-20) mg/dL Creatinine (0.66-1.25) mg/dL Est GFR (CKD-EPI)AfAm (>60 ml/min/1.73 sqM) Est GFR (CKD-EPI)NonAf (>60 ml/min/1.73 sqM) Glucose (74-99) mg/dL Lactic Ac Sepsis Rflx Y Plasma Lactic Acid Fidel (0.7-2.0) mmol/L Calcium (8.4-10.2) mg/dL Disposition Clinical Impression: Abdominal pain, Constipation, Lactic acidosis Disposition: ADMITTED IP TO THIS HOSP Condition: Fair
[2023-08-19] MEDS ORDERED: SODIUM CHLORIDE 0.9% 1,000 ML IV SCH (07:00)
--- NOTE | 2023-08-19 07:20 | XR ---
EXAMINATION TYPE: XR chest 2V DATE OF EXAM: 08/19/2023 7:07 AM COMPARISON: Chest radiographs from 02/18/2018 TECHNIQUE: XR chest 2V Frontal and lateral views of the chest. CLINICAL INDICATION:Male, 78 years old with history of weakness; FINDINGS: Lungs/Pleura: There is flattening of the diaphragm with increased lucency of the lungs. No evidence o f pneumothorax, pleural effusion or focal consolidation. Chronic senescent parenchymal change. Pulmonary vascularity: Unremarkable. Heart/mediastinum: Cardiomediastinal silhouette is unremarkable. Atherosclerotic calcifications are seen in the aorta. Musculoskeletal: No acute osseous pathology. IMPRESSION: 1. No acute cardiopulmonary disease process. 2. COPD changes.
--- NOTE | 2023-08-19 07:31 | CT ---
EXAMINATION TYPE: CT abdomen pelvis wo con CT DLP: 440.5 mGycm, Automated exposure control for dose reduction was used. DATE OF EXAM: 08/19/2023 7:14 AM COMPARISON: CT abdomen pelvis 02/26/2017 CLINICAL INDICATION:Male, 78 years old with history of abdominal pains; back pain TECHNIQUE: Standard CT of the abdomen and pelvis without IV or oral contrast. Lack of IV or oral co ntrast limits evaluation of solid and hollow organ viscera. Coronal and sagittal reformats were perfo rmed. FINDINGS: LOWER CHEST: Bullae demonstrated within the right lower lobe. Stable right lower lobe 5 mm pulmonary nodule, consider benign. ABDOMEN LIVER: Several hepatic cysts redemonstrated. GALLBLADDER AND BILE DUCTS: Unremarkable noncontrast appearance PANCREAS: Unremarkable noncontrast appearance SPLEEN: Unremarkable noncontrast appearance ADRENAL GLANDS: Unremarkable noncontrast appearance. KIDNEYS AND URETERS: No evidence of hydronephrosis or renal calculus. Exophytic right inferior pole 2 .3 cm cyst. PELVIS BLADDER: Wall thickening of the urinary bladder dome measuring up to 7 mm with possible right posteri or lateral diverticulum. REPRODUCTIVE: Unremarkable. ABDOMEN & PELVIS STOMACH AND BOWEL: Stomach and duodenum are unremarkable. Rectal fecaloma with surrounding inflammato ry changes measuring up to 8.3 cm. Moderate colonic stool burden most pronounced within the right col on. No evidence of bowel obstruction. PERITONEUM: No evidence of pneumoperitoneum. Presacral edema. VASCULATURE: Moderate atherosclerotic calcifications are present throughout the abdominal aorta and i ts branches. No evidence of aortic aneurysm. Pelvic phleboliths. MUSCULOSKELETAL: No acute osseous abnormalities. Mild disc degeneration changes are present throughou t the thoracolumbar spine. LYMPH NODES: Similar enlarged left distal periureteral lymph node measuring up to 2.0 cm. SOFT TISSUE/ABDOMINAL WALL: Right inguinal hernia containing ascites. IMPRESSION: 1. Rectal fecaloma with surrounding inflammatory change measuring 8.3 cm. Moderate colonic stool bur den. Findings are concerning for stercoral colitis. 2.Wall thickening of the urinary bladder dome measuring up to 7 mm with possible right posterior late ral diverticulum. Correlation with urinalysis is recommended. Consider direct visualization to exclud e neoplasm. 3. Stable enlarged left distal periureteral lymph node dating back to 2016, likely benign. 4. Right inguinal hernia containing ascites.
[2023-08-19] MEDS ORDERED: NON FORMULARY DRUG (Vitamin B Complex [Vitamin B Complex] 1 EACH Capsule) PO SCH (12:00)
[2023-08-19 12:29] LABS: Appearance,Urine Clear (Clear); Bilirubin,Urine Negative (Negative); Blood,Urine Negative (Negative); Color,Urine Light Yellow; Glucose,Urine (UA) Negative (Negative); Ketones,Urine Negative (Negative); Leukocyte Esterase,Urine Negative (Negative); Nitrite,Urine Negative (Negative); Protein,Urine Trace (Negative); Specific Gravity,Urine 1.021 (1.001-1.035); Urobilinogen,Urine <2.0 mg/dL (<2.0)
[2023-08-19] MEDS ORDERED: CALCIUM CARBONATE 500 MG CHEWABLE PO PRN (13:15)
[2023-08-19] MEDS ORDERED: ONDANSETRON 4 MG/2 ML VIAL IVP PRN (13:15)
[2023-08-19] MEDS ORDERED: MAGNESIUM CITRATE 296 ML BOTTLE PO ONE (13:30)
[2023-08-19] MEDS: ASCORBIC ACID 500 MG TAB PO SCH (14:28)
[2023-08-19] MEDS: CITALOPRAM HYDROBROMIDE 10 MG TAB PO SCH (14:28)
[2023-08-19] MEDS: METOPROLOL TARTRATE 50 MG TAB PO SCH ×2 (14:29→20:28)
[2023-08-19] MEDS: TAMSULOSIN 0.4 MG CAP.ER.24H PO SCH (14:29)
[2023-08-19] MEDS: ENOXAPARIN 40 MG/0.4 ML SYRINGE SQ SCH (14:29)
[2023-08-19] MEDS: CARBIDOPA-LEVODOPA ER 50-200MG 1 EACH TABLET.ER PO SCH ×3 (14:29→20:28)
[2023-08-19] MEDS: ALBUTEROL NEBULIZED 2.5 MG/3 ML INHALATION SCH ×2 (15:14→19:58)
[2023-08-19] MEDS: BUDESONIDE 0.5 MG/2 ML NEBU INHALATION SCH ×2 (15:15→19:59)
[2023-08-19] MEDS: ACETAMINOPHEN TAB 325 MG TAB PO PRN (16:10)
[2023-08-19] MEDS ORDERED: BACLOFEN 10 MG TAB PO SCH (21:00)
--- NOTE | 2023-08-19 23:11 | P.HPIM ---
History of Present Illness H&P Date: 08/19/23 Chief Complaint: Constipation Pleasant 78-year-old patient who follows a Dr. Villagran. Chronic stable medical conditions include COPD, hypertension, Parkinson's, scoliosis and lumbar spine, anxiety depression, does use a walker at her baseline. Patient normally has elevated from 1-3 bowel movements a day. Presents with constipation for last 3 days. No abdominal pain. No nausea vomiting. Appetite is fair. Review of systems: GEN.: Tired EYES: None HEENT: Decreased hearing NECK: None RESPIRATORY: None CARDIOVASCULAR: None GASTROINTESTINAL: As above] GENITOURINARY: None MUSCULOSKELETAL: Joint pains LYMPHATICS: None HEMATOLOGICAL: None PSYCHIATRY: None NEUROLOGICAL: None Past medical history to include: COPD, hypertension, consistent, scoliosis and lumbar spine, anxiety, depression Social history: Patient smoked for about 20 was stopped in [id number]. . Doesn't really walker. Physical examination: VITAL SIGNS: 98.3, 89, 18, 173/90, 96% room air upon presentation GENERAL: BMI 19.5, laying in bed some tremors. EYES: Pupils equal. Conjunctiva normal. HEENT: External appearance of nose and ears normal, oral cavity grossly normal. NECK: JVD not raised; masses not palpable. HEART: First and second heart sounds are normal; no edema. LUNGS: Respiratory rate normal; clear to auscultation. ABDOMEN: Soft, nontender, liver spleen not palpable, no masses palpable. PSYCH: [Able tonsil simple questions l. MUSCULOSKELETAL:No Clubbing/cyanosis;muscles-grossly intact. Osteoarthritis NEUROLOGICAL: Cranial nerves grossly intact; no facial asymmetry, power and sensation grossly intact. Tremors present some bradykinesia LYMPHATICS: No lymph nodes palpable in the axilla and neck INVESTIGATIONS, reviewed in the clinical context: White count 7.6 hemoglobin 12.2 platelets 317 sodium 141 potassium 5. 55 creatinine 1.67 Lactic acid 2.4 Chest x-ray film personally reviewed by me-some hyperinflation. No obvious infiltrate Abdominal x-ray film: Some retained stool Computed tomography scan abdomen: Rectal fecaloma with surrounding inflammatory changes measuring 8.3 cm. Moderate colonic stool border. Assessment and plan: -Severe obstipation secondary to fecaloma in the rectum. Soapsuds enema ordered. If no result that magnesium citrate. Clear liquid diet in the meantime. -Parkinson's disease Amantadine 100 mg twice a day Sinemet -Stercoral colitis -BPH Alfuzosin -COPD in a prior smoker Ventolin and Pulmicort nebulizer. -Depression and anxiety Celexa Discussed with patient. Soapsuds enema. If no result then back citrate. - Past Medical History Past Medical History: COPD, Hypertension Additional Past Medical History / Comment(s): parkinson's, sinusitis, Scoliosis of lumbar spine History of Any Multi-Drug Resistant Organisms: None Reported Past Surgical History: Adenoidectomy, Tonsillectomy Additional Past Surgical History / Comment(s): nasal polyp, colonoscopy Past Anesthesia/Blood Transfusion Reactions: No Reported Reaction Past Psychological History: Anxiety, Depression Additional Psychological History / Comment(s): Pt resides with his spouse. He has a nebulizer and a wheeled walker. Smoking Status: Former smoker Past Alcohol Use History: Rare Additional Past Alcohol Use History / Comment(s): Pt started smoking in 1958 and quit in 1979. Past Drug Use History: None Reported - Past Family History Mother Family Medical History: CVA/TIA, Myocardial Infarction ([place]) Father Family Medical History: Cancer Additional Family Medical History / Comment(s): Father of metastatic ca ncer-primary unknown to patient. Medications and Allergies Home Medications Medication Instructions Recorded Confirmed Type Baclofen [Lioresal] 20 mg PO HS PRN 02/26/17 08/19/23 History Carbidopa/Levodopa [Sinemet CR 1 tab PO QID 02/26/17 08/19/23 History 50-200 mg] Citalopram Hydrobromide [CeleXA] 30 mg PO DAILY 02/26/17 08/19/23 History Alfuzosin HCl [Uroxatral ER] 10 mg PO DAILY 09/30/17 08/19/23 History Fluticasone Propionate [Flonase 2 spr EA NOSTRIL DAILY PRN 02/18/18 08/19/23 History Allergy Relief] Acetaminophen-Codeine 300-30mg 1 tab PO Q6H PRN 08/19/23 08/19/23 History [Tylenol w/codeine #3] Albuterol Nebulized [Ventolin 2.5 mg INHALATION RT-BID 08/19/23 08/19/23 History Nebulized] Ascorbic Acid [Vitamin C] 250 mg PO DAILY 08/19/23 08/19/23 History Budesonide [Pulmicort] 0.5 mg INHALATION RT-BID 08/19/23 08/19/23 History Carbidopa-Levodopa 25-100 mg 0.5 tab PO BID 08/19/23 08/19/23 History [Sinemet 25-100] Cholecalciferol [Vitamin D3 (125 125 mcg PO DAILY 08/19/23 08/19/23 History Mcg = 5000 Iu)] Oregano Oil/Flaxseed Oil [Oregano 1 cap PO DAILY 08/19/23 08/19/23 History Oil 50-25 mg Capsule] Ubidecarenone [Co Q-10] 400 mg PO DAILY 08/19/23 08/19/23 History Vitamin B Complex 1 cap PO DAILY 08/19/23 08/19/23 History Zinc Gluconate [Zinc] 50 mg PO DAILY 08/19/23 08/19/23 History amantadine HCL [Amantadine] 100 mg PO BID 08/19/23 08/19/23 History methylPREDNISolone [Medrol Dose See Taper PO DIRECTED 08/19/23 08/19/23 History Pack] Allergies Allergy/AdvReac Type Severity Reaction Status Date / Time Penicillins Allergy Itching Verified 08/19/23 02:59 ciprofloxacin AdvReac Confusion Verified 08/19/23 02:59 nitrofurantoin AdvReac Confusion Verified 08/19/23 02:59 [From Macrobid] Physical Exam Vitals: Vital Signs Temp Pulse Pulse Resp BP BP Pulse Ox 08/19/23 10:37 97.4 F L 73 17 200/76 95 08/19/23 10:13 87 18 168/45 95 08/19/23 06:00 97.8 F 68 180/83 95 08/19/23 05:00 182/89 96 08/19/23 04:00 176/81 96 08/19/23 03:24 173/90 96 08/19/23 02:56 98.3 F 89 18 173/90 Intake and Output 08/18/23 08/19/23 08/19/23 22:59 06:59 14:59 Other: # Bowel Movements 1 Weight 65.317 kg 65.317 kg Results CBC & Chem 7: 08/19/23 04:23 08/19/23 04:23 Labs: Abnormal Lab Results - Last 24 Hours (Table) 1108/19/23 08/19/23 Range/Units 04:23 04:23 04:23 WBC 17.6 H (3.8-10.6) k/uL RBC 3.76 L (4.30-5.90) m/uL Hgb 12.2 L (13.0-17.5) gm/dL Hct 37.5 L (39.0-53.0) % Neutrophils # 15.1 H (1.3-7.7) k/uL Chloride 111 H (98-107) mmol/L Carbon Dioxide 18 L (22-30) mmol/L BUN 55 H (9-20) mg/dL Creatinine 1.67 H (0.66-1.25) mg/dL Glucose 120 H (74-99) mg/dL Plasma Lactic Acid Fidel 2.4 H* (0.7-2.0) mmol/L Thrombosis Risk Factor Assmnt - Choose All That Apply Any of the Below Risk Factors Present?: Yes Each Factor Represents 1 point: Abnormal pulmonary function (COPD) Other Risk Factors: Yes Each Risk Factor Represents 3 Points: Age 75 years or older Other congenital or acquired thrombophilia - If yes, enter type in comment: No Thrombosis Risk Factor Assessment Total Risk Factor Score: 4 Thrombosis Risk Factor Assessment Level: Moderate Risk
[2023-08-19] MEDS ORDERED: SODIUM CHLORIDE 0.45% 1,000 ML IV SCH (23:30)
[2023-08-20] MEDS ORDERED: CARBIDOPA-LEVODOPA ER 50-200MG 1 EACH TABLET.ER PO PRN
[2023-08-20] MEDS: ACETAMINOPHEN TAB 325 MG TAB PO PRN ×2 (00:22→09:32)
[2023-08-20 07:01] LABS: Basophils % (A) 0 %; Eosinophils # (A) 0.2 k/uL (0-0.7); Eosinophils % (A) 1 %; HCT 33.7 % (39.0-53.0); HGB 11.1 gm/dL (13.0-17.5); Lymphocytes # (A) 2.3 k/uL (1.0-4.8); Lymphocytes % (A) 15 %; MCH 32.6 pg (25.0-35.0); MCHC 32.8 g/dL (31.0-37.0); MCV 99.3 fL (80.0-100.0); Mean Platelet Volume 8.7; Monocytes # (A) 1.1 k/uL (0-1.0); Monocytes % (A) 7 %; Neutrophils % (A) 76 %; Platelet Count 270 k/uL (150-450); RDW 12.5 % (11.5-15.5); WBC 15.8 k/uL (3.8-10.6)
[2023-08-20 07:12] LABS: African American GFR (CKD) 51 (>60 ml/min/1.73 sqM); Anion Gap 9 mmol/L; Blood Urea Nitrogen 44 mg/dL (9-20); Calcium 8.9 mg/dL (8.4-10.2); Carbon Dioxide 21 mmol/L (22-30); Chloride 109 mmol/L (98-107); Glucose 95 mg/dL (74-99); Non-African American GFR(CKD) 45 (>60 ml/min/1.73 sqM); Potassium 4.9 mmol/L (3.5-5.1); Sodium 139 mmol/L (137-145)
[2023-08-20] MEDS: ALBUTEROL NEBULIZED 2.5 MG/3 ML INHALATION SCH (07:20)
[2023-08-20] MEDS: BUDESONIDE 0.5 MG/2 ML NEBU INHALATION SCH (07:20)
[2023-08-20 08:11] VITALS: BP 117/61; PULSE 59; RESP 16; TEMP 98.7
[2023-08-20] MEDS ORDERED: CHOLECALCIFEROL 125 MCG (5000 IU) TABLET PO SCH (09:00)
[2023-08-20] MEDS: ASCORBIC ACID 500 MG TAB PO SCH (09:28)
[2023-08-20] MEDS: CITALOPRAM HYDROBROMIDE 10 MG TAB PO SCH (09:29)
[2023-08-20] MEDS: TAMSULOSIN 0.4 MG CAP.ER.24H PO SCH (09:29)
[2023-08-20] MEDS: CARBIDOPA-LEVODOPA ER 50-200MG 1 EACH TABLET.ER PO SCH (09:29)
[2023-08-20] MEDS: METOPROLOL TARTRATE 50 MG TAB PO SCH (09:29)
[2023-08-20] MEDS: ENOXAPARIN 40 MG/0.4 ML SYRINGE SQ SCH (09:30)
--- NOTE | 2023-08-20 14:46 | P.DS ---
Providers Date of admission: 08/19/23 06:50 Expected date of discharge: 08/20/23 Attending physician: Gonzales Cole Primary care physician: Marcial Villagran [facility] Course: Chief Complaint: Constipation Pleasant 78-year-old patient who follows a Dr. Villagran. Chronic stable medical conditions include COPD, hypertension, Parkinson's, scoliosis and lumbar spine, anxiety depression, does use a walker at her baseline. Patient normally has elevated from 1-3 bowel movements a day. Presents with constipation for last 3 days. No abdominal pain. No nausea vomiting. Appetite is fair. August 20: Patient had slight p.m. with an enema. Responded very well to magnesia citrate yesterday. Had large bowel movement. Also 2 BMs today. Metamucil is being added. Discussed with patient. Diet was advanced. Patient does not want to rehab. extension worker spoke to the patient. Patient is attentive. Spoke to the nurse. I also spoke with director social welfare. Discussion and discharge planning more than 35 minutes. Past medical history to include: COPD, hypertension, consistent, scoliosis and lumbar spine, anxiety, depression Social history: Patient smoked for about 20 was stopped in [id number]. . Uses a walker Physical examination: VITAL SIGNS: 98.7, 59, 16, 11 7 x 61, 94% room air GENERAL: In bed, comfortable EYES: Pupils equal. Conjunctiva normal. HEENT: External appearance of nose and ears normal, oral cavity grossly normal. NECK: JVD not raised; masses not palpable. HEART: First and second heart sounds are normal; no edema. LUNGS: Respiratory rate normal; clear to auscultation. ABDOMEN: Soft, nontender, liver spleen not palpable, no masses palpable. PSYCH: Able to answer questions appropriately MUSCULOSKELETAL:No Clubbing/cyanosis;muscles-grossly intact. Osteoarthritis NEUROLOGICAL: Cranial nerves grossly intact; no facial asymmetry, power and sensation grossly intact. Tremors present some bradykinesia INVESTIGATIONS, reviewed in the clinical context: August 20: White count 15.8 hemoglobin 11.1 potassium 4.9 BUN 44 creatinine 1.47 White count 7.6 hemoglobin 12.2 platelets 317 sodium 141 potassium 5. 55 creatinine 1.67 Lactic acid 2.4 Chest x-ray film personally reviewed by me-some hyperinflation. No obvious infiltrate Abdominal x-ray film: Some retained stool Computed tomography scan abdomen: Rectal fecaloma with surrounding inflammatory changes measuring 8.3 cm. Moderate colonic stool border. 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 -BPH Alfuzosin -COPD in a prior smoker Ventolin and Pulmicort nebulizer. -Depression and anxiety Celexa Disposition: Home Labs: BMP: 3 days Plan - Discharge Summary Discharge Rx Participant: No New Discharge Prescriptions: New Psyllium Husk 100% [Metamucil Packet] 6 gm PO BID #60 packet Metoprolol Tartrate [Lopressor] 25 mg PO TID #90 tablet Continue Citalopram Hydrobromide [CeleXA] 30 mg PO DAILY Carbidopa/Levodopa [Sinemet CR 50-200 mg] 1 tab PO QID Baclofen [Lioresal] 20 mg PO HS PRN PRN Reason: Muscle Spasm Alfuzosin HCl [Uroxatral ER] 10 mg PO DAILY Fluticasone Propionate [Flonase Allergy Relief] 2 spr EA NOSTRIL DAILY PRN PRN Reason: Congestion Oregano Oil/Flaxseed Oil [Oregano Oil 50-25 mg Capsule] 1 cap PO DAILY Vitamin B Complex 1 cap PO DAILY Budesonide [Pulmicort] 0.5 mg INHALATION RT-BID Albuterol Nebulized [Ventolin Nebulized] 2.5 mg INHALATION RT-BID Ubidecarenone [Co Q-10] 400 mg PO DAILY Carbidopa-Levodopa 25-100 mg [Sinemet 25-100 mg] 0.5 tab PO BID Ascorbic Acid [Vitamin C] 250 mg PO DAILY Acetaminophen-Codeine 300-30mg [Tylenol w/codeine #3] 1 tab PO Q6H PRN PRN Reason: Pain Changed amantadine HCL [Amantadine] 100 mg PO DAILY #0 Discontinued Zinc Gluconate [Zinc] 50 mg PO DAILY Cholecalciferol [Vitamin D3 (125 Mcg = 5000 Iu)] 125 mcg PO DAILY methylPREDNISolone [Medrol Dose Pack] See Taper PO DIRECTED Discharge Medication List Baclofen [Lioresal] 20 mg PO HS PRN 02/26/17 [History] Carbidopa/Levodopa [Sinemet CR 50-200 mg] 1 tab PO QID 02/26/17 [History] Citalopram Hydrobromide [CeleXA] 30 mg PO DAILY 02/26/17 [History] Alfuzosin HCl [Uroxatral ER] 10 mg PO DAILY 09/30/17 [History] Fluticasone Propionate [Flonase Allergy Relief] 2 spr EA NOSTRIL DAILY PRN 02/18/18 [History] Acetaminophen-Codeine 300-30mg [Tylenol w/codeine #3] 1 tab PO Q6H PRN 08/19/23 [History] Albuterol Nebulized [Ventolin Nebulized] 2.5 mg INHALATION RT-BID 08/19/23 [Hist ory] Ascorbic Acid [Vitamin C] 250 mg PO DAILY 08/19/23 [History] Budesonide [Pulmicort] 0.5 mg INHALATION RT-BID 08/19/23 [History] Carbidopa-Levodopa 25-100 mg [Sinemet 25-100 mg] 0.5 tab PO BID 08/19/23 [History] Oregano Oil/Flaxseed Oil [Oregano Oil 50-25 mg Capsule] 1 cap PO DAILY 08/19/23 [History] Ubidecarenone [Co Q-10] 400 mg PO DAILY 08/19/23 [History] Vitamin B Complex 1 cap PO DAILY 08/19/23 [History] Metoprolol Tartrate [Lopressor] 25 mg PO TID #90 tablet 08/20/23 [Rx] Psyllium Husk 100% [Metamucil Packet] 6 gm PO BID #60 packet 08/20/23 [Rx] amantadine HCL [Amantadine] 100 mg PO DAILY #0 08/20/23 [Rx] Follow up Appointment(s)/Referral(s): Marcial Villagran DO [Primary Care Provider] - 1-2 days (The office will call with a follow up appointment. ) Patient Instructions/Handouts: Metoprolol (By mouth), Laxative, Bulk-forming (By mouth), Constipation (DC), Abdominal Pain (GEN) Discharge/Stand Alone Forms: Who Do I Call?, Community Resources, Help In The Home Discharge Disposition: HOME WITH HOME HEALTH SERVICES
[2023-08-20] MEDS ORDERED: METOPROLOL TARTRATE 25 MG TAB PO SCH (22:00)
== END 2023-08-20 14:11 | disposition home health service (06) ==
LOC: EC 02:55 → INTOOBSV 06:50 → 5NMEDONC 06:50 → UNDODISIN 08-20 14:11
PROVIDERS: ADMIT Hospitalist; ATTEND Hospitalist
DX: K56.41 Fecal impaction (principal); E87.20 Acidosis, unspecified; K52.89 Other specified noninfective gastroenteritis and colitis; N40.0 Benign prostatic hyperplasia without lower urinary tract symptoms; J44.9 Chronic obstructive pulmonary disease, unspecified; F41.9 Anxiety disorder, unspecified; F32.A Depression, unspecified; G20.A1 Parkinson's disease without dyskinesia, without mention of fluctuations; R26.9 Unspecified abnormalities of gait and mobility; I10 Essential (primary) hypertension; Z87.891 Personal history of nicotine dependence; Z79.51 Long term (current) use of inhaled steroids; Z79.899 Other long term (current) drug therapy; Z88.0 Allergy status to penicillin; Z88.1 Allergy status to other antibiotic agents
CPT/HCPCS: 96372 ×3; 96360; 99285; 36415; 94640 ×2; 97162; 80048 ×2; 83605; 85025 ×2; 81003; 71046; 74018; 74176; G0378 ×2; J0500; J1650 ×2; 96361

== ENCOUNTER 2023-12-27 10:13 | Inpatient (IN) | payer MEDICARE ==
--- NOTE | 2023-12-27 11:00 | ED ---
General Adult HPI - General Chief complaint: Weakness Stated complaint: weakness Time Seen by Provider: 12/27/23 10:15 Source: patient, EMS Mode of arrival: EMS Limitations: no limitations - History of Present Illness Initial comments: Dictation was produced using [employer] dictation software. please excuse any grammatical, word or spelling errors. Chief Complaint: 78-year-old male sent in from primary care physician's office for worsening mentation History of Present Illness: Patient is 78-year-old male sent in by primary care doctor, Dr. Lita huynh. He has a history of Parkinson's disease. Over the last several days he has been having worsening mentation that the describes as hallucinations, mumbling and generalized weakness. Patient states he feels super weak. Denies any pain complaints. Denies any focal neurologic deficits. The ROS documented in this emergency department record has been reviewed and confirmed by me. Those systems with pertinent positive or negative responses have been documented in the HPI. All other systems are other negative and/or noncontributory. - Related Data Home Medications Medication Instructions Recorded Confirmed Baclofen [Lioresal] 20 mg PO HS 02/26/17 12/27/23 Carbidopa/Levodopa [Sinemet CR 1 tab PO TID@1000,1400,1800 02/26/17 12/27/23 50-200 mg] Citalopram Hydrobromide [CeleXA] 30 mg PO DAILY 02/26/17 12/27/23 Alfuzosin HCl [Uroxatral ER] 10 mg PO HS 09/30/17 12/27/23 Carbidopa-Levodopa 25-100 mg 1 tab PO TID@1000,1400,1800 08/19/23 12/27/23 [Sinemet 25-100 mg] Docusate [Colace] 100 mg PO HS 12/27/23 12/27/23 Lower Bowel Stimulant 1 cap PO HS 12/27/23 12/27/23 amantadine HCL [Amantadine] 100 mg PO TID@1000,1400,1800 12/27/23 12/27/23 Allergies Allergy/AdvReac Type Severity Reaction Status Date / Time Penicillins Allergy Itching Verified 12/27/23 12:16 ciprofloxacin AdvReac Confusion Verified 12/27/23 12:16 nitrofurantoin AdvReac Confusion Verified 03/21/24 12:16 [From Macrobid] Review of Systems ROS Statement: Those systems with pertinent positive or pertinent negative responses have been documented in the HPI. ROS Other: All systems not noted in ROS Statement are negative. Past Medical History Past Medical History: COPD, Hypertension Additional Past Medical History / Comment(s): parkinson's, sinusitis, History of Any Multi-Drug Resistant Organisms: None Reported Past Surgical History: Adenoidectomy, Tonsillectomy Additional Past Surgical History / Comment(s): nasal polyp, colonoscopy Past Anesthesia/Blood Transfusion Reactions: No Reported Reaction Past Psychological History: Anxiety Past Alcohol Use History: Rare Past Drug Use History: None Reported - Past Family History Mother Family Medical History: CVA/TIA, Myocardial Infarction (OR) Father Family Medical History: Cancer Additional Family Medical History / Comment(s): Father of metastatic cancer-primary unknown to patient. General Exam - General Exam Comments Initial Comments: PHYSICAL EXAM: General Impression: Alert and oriented x3, not in acute distress HEENT: Normocephalic atraumatic, extra-ocular movements intact, pupils equal and reactive to light bilaterally, mucous membranes moist. Cardiovascular: Heart regular rate and rhythm Chest: Able to complete full sentences, no retractions, no tachypnea Abdomen: abdomen soft, non-tender, non-distended, no organomegaly Musculoskeletal: Pulses present and equal in all extremities, no peripheral edema, no cogwheel rigidity Motor: no focal deficits noted Neurological: CN II-XII grossly intact, no focal motor or sensory deficits noted Skin: Intact with no visualized rashes Psych: Normal affect and mood Limitations: no limitations Course Vital Signs 12/27/23 12/27/23 10:14 10:22 Temperature 97.8 F Pulse Rate 72 72 Respiratory 22 20 Rate Blood Pressure 173/100 176/80 O2 Sat by Pulse 96 95 Oximetry EKG Findings - EKG Comments: EKG Findings:: My EKG interpretation: Ventricular rate 71, sinus rhythm,. 163, QRS 126, QTc 432. No AL prolongation, no QTC prolongation, no ST or T-wave changes noted. Overall, this EKG is unremarkable Medical Decision Making - Medical Decision Making Was pt. sent in by a medical professional or institution (, PA, LAB REP, urgent care, hospital, or [place] health care facility...) When possible be specific @ -No Did you speak to anyone other than the patient for history (EMS, parent, family, police, friend...)? What history was obtained from this source @ -No Did you review nursing and triage notes (agree or disagree)? Why? @ -I reviewed and agree with nursing and triage notes Were old charts reviewed (outside hosp., previous admission, EMS record, old EKG, old radiological studies, urgent care reports/EKG's, [place] health care facility records)? Report findings @ -No old charts were reviewed Differential Diagnosis (chest pain, altered mental status, abdominal pain women, abdominal pain men, vaginal bleeding, musculoskeletal, weakness, fever, dyspnea, syncope, headache, dizziness, GI bleed, back pain, seizure, CVA, palpatations, mental health)? @ -Differential Altered Mental Status: Hypoglycemia, DKA, hypercapnia, ETOH, overdose, CO poisoning, trauma, myxedema coma, HTN encephalopathy, infection, encephalitis, psychosis, intercranial hemorrhage, hepatic encephalopathy, meningitis, CVA, this is not meant to be an all-inclusive list EKG interpreted by me (3pts min.). @ -See above X-rays interpreted by me (1pt min.). @ -Chest x-ray is nonacute CT interpreted by me (1pt min.). @ -CT brain and C-spine shows no acute processes U/S interpreted by me (1pt. min.). @ -None done What testing was considered but not performed or refused? (CT, X-rays, U/S, labs)? Why? @ -None What meds were considered but not given or refused? Why? @ -None Did you discuss the management of the patient with other professionals (professionals i.e. , PA, LAB REP, lab, RT, psych nurse, high school social studies teacher, live in housekeeper nanny, teacher, ship's electronic warfare officer, transplant case manager)? Give summary @ -Case discussed with hospitalist for admission Was smoking cessation discussed for >3mins.? @ -No Was critical care preformed (if so, how long)? @ -No Were there social determinants of health that impacted care today? How? (Homeles sness, low income, unemployed, alcoholism, drug addiction, transportation, low edu. Level, literacy, decrease access to med. care, intermediate, rehab)? @ -No Was there de-escalation of care discussed even if they declined (Discuss DNR or withdrawal of care, Hospice)? DNR status @ -No What co-morbidities impacted this encounter? (DM, HTN, Smoking, COPD, CAD, Cancer, CVA, ARF, Chemo, Hep., AIDS, mental health diagnosis, sleep apnea, morbid obesity)? @ -None Was patient admitted / discharged? Hospital course, mention meds given and route, prescriptions, significant lab abnormalities, going to OR and other pertinent info. @ -78-year-old male presents to the emergency department for worsening mentat ion. He has a history of worsening parkinsonism. Vital signs upon arrival are within acceptable limits. Patient altered at the bedside however he is responsive. No focal neurologic deficits. Laboratory evaluation obtained. CBC, coag panel negative. Metabolic panel shows hyponatremia 147. Acute kidney injury with recently increased creatinine of 2.2-3 compared to August of last year. CT imaging is negative. Urine and viral testing negative. Patient will be admitted with consultation to neurology. Undiagnosed new problem with uncertain prognosis? @ -No Drug Therapy requiring intensive monitoring for toxicity (Heparin, Nitro, Insulin, Cardizem)? @ -No Were any procedures done? @ -No Diagnosis/symptom? Acute, or Chronic, or Acute on Chronic? Uncomplicated (without systemic symptoms) or Complicated (systemic symptoms)? @ -Altered mental status Side effects of treatment? @ -No Exacerbation, Progression, or Severe Exacerbation? @ -No Poses a threat to life or bodily function? How? (Chest pain, USA, OR, pneumonia, PE, COPD, DKA, ARF, appy, cholecystitis, CVA, Diverticulitis, Homicidal, Suicidal, threat to staff... and all critical care pts) @ -yes - Lab Data Result diagrams: 12/27/23 10:53 12/27/23 10:53 Lab Results 12/27/23 12/27/23 12/27/23 Range/Units 10:53 10:53 10:53 WBC 8.7 (3.8-10.6) k/uL RBC 3.38 L (4.30-5.90) m/uL Hgb 11.2 L (13.0-17.5) gm/dL Hct 33.7 L (39.0-53.0) % MCV 99.7 (80.0-100.0) fL MCH 33.0 (25.0-35.0) pg MCHC 33.1 (31.0-37.0) g/dL RDW 12.8 (11.5-15.5) % Plt Count 230 (150-450) k/uL MPV 8.8 Neutrophils % 69 % Lymphocytes % 21 % Monocytes % 6 % Eosinophils % 1 % Basophils % 0 % Neutrophils # 6.0 (1.3-7.7) k/uL Lymphocytes # 1.8 (1.0-4.8) k/uL Monocytes # 0.5 (0-1.0) k/uL Eosinophils # 0.1 (0-0.7) k/uL Basophils # 0.0 (0-0.2) k/uL PT 10.7 (10.0-12.5) sec INR 1.0 (<1.2) APTT 26.6 (22.0-30.0) sec Sodium (137-145) mmol/L Potassium (3.5-5.1) mmol/L Chloride (98-107) mmol/L Carbon Dioxide (22-30) mmol/L Anion Gap mmol/L BUN (9-20) mg/dL Creatinine (0.66-1.25) mg/dL Est GFR (CKD-EPI)AfAm (>60 ml/min/1.73 sqM) Est GFR (CKD-EPI)NonAf (>60 ml/min/1.73 sqM) Glucose (74-99) mg/dL Plasma Lactic Acid Fidel (0.7-2.0) mmol/L Calcium (8.4-10.2) mg/dL Magnesium (1.6-2.3) mg/dL Total Bilirubin (0.2-1.3) mg/dL AST (17-59) U/L ALT (4-49) U/L Alkaline Phosphatase (38-126) U/L Total Protein (6.3-8.2) g/dL Albumin (3.5-5.0) g/dL Urine Color Light Yellow Urine Appearance Clear (Clear) Urine pH 5.0 (5.0-8.0) Ur Specific [place] 1.021 (1.001-1.035) Urine Protein 1+ H (Negative) Urine Glucose (UA) Negative (Negative) Urine Ketones Trace H (Negative) Urine Blood Negative (Negative) Urine Nitrite Negative (Negative) Urine Bilirubin Negative (Negative) Urine Urobilinogen <2.0 (<2.0) mg/dL Ur Leukocyte Esterase Negative (Negative) Urine RBC 3 (0-5) /hpf Urine WBC 4 (0-5) /hpf Hyaline Casts 3 H (0-2) /lpf Urine Mucus Rare H (None) /hpf Influenza Type A (PCR) (Not Detectd) Influenza Type B (PCR) (Not Detectd) RSV (PCR) (Not Detectd) SARS-CoV-2 (PCR) (Not Detectd) 12/27/23 12/27/23 12/27/23 Range/Units 10:53 10:53 10:53 WBC (3.8-10.6) k/uL RBC (4.30-5.90) m/uL Hgb (13.0-17.5) gm/dL Hct (39.0-53.0) % MCV (80.0-100.0) fL MCH (25.0-35.0) pg MCHC (31.0-37.0) g/dL RDW (11.5-15.5) % Plt Count (150-450) k/uL MPV Neutrophils % % Lymphocytes % % Monocytes % % Eosinophils % % Basophils % % Neutrophils # (1.3-7.7) k/uL Lymphocytes # (1.0-4.8) k/uL Monocytes # (0-1.0) k/uL Eosinophils # (0-0.7) k/uL Basophils # (0-0.2) k/uL PT (10.0-12.5) sec INR (<1.2) APTT (22.0-30.0) sec Sodium 147 H (137-145) mmol/L Potassium 4.4 (3.5-5.1) mmol/L Chloride 117 H (98-107) mmol/L Carbon Dioxide 20 L (22-30) mmol/L Anion Gap 10 mmol/L BUN 59 H (9-20) mg/dL Creatinine 2.23 H (0.66-1.25) mg/dL Est GFR (CKD-EPI)AfAm 31 (>60 ml/min/1.73 sqM) Est GFR (CKD-EPI)NonAf 27 (>60 ml/min/1.73 sqM) Glucose 106 H (74-99) mg/dL Plasma Lactic Acid Fidel 2.2 H* (0.7-2.0) mmol/L Calcium 9.3 (8.4-10.2) mg/dL Magnesium 2.3 (1.6-2.3) mg/dL Total Bilirubin 0.8 (0.2-1.3) mg/dL AST 61 H (17-59) U/L ALT 11 (4-49) U/L Alkaline Phosphatase 107 (38-126) U/L Total Protein 6.9 (6.3-8.2) g/dL Albumin 4.2 (3.5-5.0) g/dL Urine Color Urine Appearance (Clear) Urine pH (5.0-8.0) Ur Specific [place] (1.001-1.035) Urine Protein (Negative) Urine Glucose (UA) (Negative) Urine Ketones (Negative) Urine Blood (Negative) Urine Nitrite (Negative) Urine Bilirubin (Negative) Urine Urobilinogen (<2.0) mg/dL Ur Leukocyte Esterase (Negative) Urine RBC (0-5) /hpf Urine WBC (0-5) /hpf Hyaline Casts (0-2) /lpf Urine Mucus (None) /hpf Influenza Type A (PCR) Not Detected (Not Detectd) Influenza Type B (PCR) Not Detected (Not Detectd) RSV (PCR) Not Detected (Not Detectd) SARS-CoV-2 (PCR) Not Detected (Not Detectd) Disposition Clinical Impression: Altered mental status Disposition: ADMITTED IP TO THIS [facility] Condition: Fair Referrals: Marcial Villagran DO [Primary Care Provider] - 1-2 days Decision Time: 12:46
[2023-12-27 11:06] LABS: Basophils % (A) 0 %; Eosinophils # (A) 0.1 k/uL (0-0.7); Eosinophils % (A) 1 %; HCT 33.7 % (39.0-53.0); HGB 11.2 gm/dL (13.0-17.5); Lymphocytes # (A) 1.8 k/uL (1.0-4.8); Lymphocytes % (A) 21 %; MCHC 33.1 g/dL (31.0-37.0); MCV 99.7 fL (80.0-100.0); Mean Platelet Volume 8.8; Monocytes # (A) 0.5 k/uL (0-1.0); Monocytes % (A) 6 %; Neutrophils % (A) 69 %; Platelet Count 230 k/uL (150-450); RBC 3.38 m/uL (4.30-5.90); RDW 12.8 % (11.5-15.5); WBC 8.7 k/uL (3.8-10.6)
[2023-12-27 11:21] LABS: Partial Thromboplastin Time 26.6 sec (22.0-30.0); Prothrombin Time 10.7 sec (10.0-12.5)
[2023-12-27 11:30] LABS: ALT 11 U/L (4-49); AST 61 U/L (17-59); African American GFR (CKD) 31 (>60 ml/min/1.73 sqM); Albumin 4.2 g/dL (3.5-5.0); Alkaline Phosphatase 107 U/L (38-126); Anion Gap 10 mmol/L; Blood Urea Nitrogen 59 mg/dL (9-20); Calcium 9.3 mg/dL (8.4-10.2); Carbon Dioxide 20 mmol/L (22-30); Chloride 117 mmol/L (98-107); Glucose 106 mg/dL (74-99); Magnesium 2.3 mg/dL (1.6-2.3); Non-African American GFR(CKD) 27 (>60 ml/min/1.73 sqM); Potassium 4.4 mmol/L (3.5-5.1); Sodium 147 mmol/L (137-145); Total Bilirubin 0.8 mg/dL (0.2-1.3); Total Protein 6.9 g/dL (6.3-8.2)
--- NOTE | 2023-12-27 11:56 | XR ---
EXAMINATION TYPE: XR chest 1V portable DATE OF EXAM: 12/27/2023 COMPARISON: 08/19/2023 HISTORY: Weakness TECHNIQUE: Single frontal view of the chest is obtained. FINDINGS: There is no focal air space opacity, pleural effusion, or pneumothorax seen. The cardiac silhouette size is within normal limits. The osseous structures are intact. Emphysematous changes. There is osteopenia. IMPRESSION: 1. COPD with no definite acute process.
--- NOTE | 2023-12-27 11:58 | CT ---
EXAMINATION TYPE: CT brain wo con CT DLP: 1242.4 mGycm, Automated exposure control for dose reduction was used. DATE OF EXAM: 12/27/2023 11:26 AM COMPARISON: None. CLINICAL INDICATION:Male, 78 years old with history of ams, parkinsons, weakness TECHNIQUE: Brain: Axial CT images of the brain were obtained with coronal and sagittal reformats created and rev iewed. Contrast used: None. Oral contrast used: None. FINDINGS: Some limitation by motion and artifacts. Extra-axial spaces: No abnormal extra-axial fluid collections. Ventricular system: Ventricles appear dilated in proportion to the degree of cerebral atrophy. Cerebral parenchyma: No increased attenuation to suggest acute intraparenchymal hemorrhage. The gra y-white matter interface appears maintained. Moderate to severe generalized brain atrophy. Patchy a nd confluent hypoattenuating areas are seen within the cerebral white matter, nonspecific but most of ten seen with chronic microvascular ischemic changes; moderate/severe in degree. Cerebellum: No acute abnormality. Mass effect: No evidence of mass effect or midline shift. Intracranial vasculature: Atherosclerotic calcifications of the larger arteries near the skull base. Soft tissues: No acute or concerning abnormality. Visualized orbits: Orbital contents appear grossly intact, as seen. Radiodensities associated with t he bilateral globes, likely from prior ophthalmologic surgery. Calvarium/osseous structures: No evidence of calvarial fracture. Developmental incomplete fusion at t he posterior arch of C1 noted. Paranasal sinuses and mastoid air cells: Pansinus moderate to severe mucosal thickening. Mastoid air cells are clear. MRI is more sensitive for detecting acute processes such as infarct, and may be considered if clinica lly warranted. IMPRESSION: 1. No acute intracranial CT abnormality. 2. Moderate to severe atrophy and chronic microvascular ischemic changes. 3. Pansinus mucosal thickening.
[2023-12-27 12:29] LABS: Appearance,Urine Clear (Clear); Bilirubin,Urine Negative (Negative); Blood,Urine Negative (Negative); Color,Urine Light Yellow; Glucose,Urine (UA) Negative (Negative); Hyaline Casts,Urine 3 /lpf (0-2); Ketones,Urine Trace (Negative); Leukocyte Esterase,Urine Negative (Negative); Mucus,Urine Rare /hpf; Nitrite,Urine Negative (Negative); Protein,Urine 1+ (Negative); RBC,Urine 3 /hpf (0-5); Specific Gravity,Urine 1.021 (1.001-1.035); Urobilinogen,Urine <2.0 mg/dL (<2.0); WBC,Urine 4 /hpf (0-5)
[2023-12-27] MEDS ORDERED: NALOXONE 0.4 MG/ML 1 ML VIAL IV PRN (12:42)
[2023-12-27] MEDS: SODIUM CHLORIDE 0.9% 1,000 ML IV STA (12:58)
[2023-12-27] MEDS: SODIUM CHLORIDE 0.9% 1,000 ML IV SCH (12:59)
[2023-12-27] MEDS: LORazepam 2 MG/ML INJ IV STA (12:59)
[2023-12-27 16:41] LABS: Glucose,Whole Blood 110 mg/dL (70-110)
[2023-12-27] MEDS: CARBIDOPA-LEVODOPA 25-100 MG 1 EACH TAB PO SCH (17:43)
[2023-12-27] MEDS: CARBIDOPA-LEVODOPA ER 50-200MG 1 EACH TABLET.ER PO SCH (17:43)
[2023-12-27 19:41] LABS: ABG Base Excess -5.2 mmol/L; ABG HCO3 20 mmol/L (21-25); ABG PCO2 37 mmHg (35-45); ABG PH 7.35 (7.35-7.45); ABG PO2 76 mmHg (83-108); ABG TCO2 22 mmol/L (19-24); Allen Test Performed? Yes
[2023-12-27 19:47] LABS: ABG Oxygen Saturation 94.4 % (94-97)
[2023-12-27 20:08] LABS: Glucose,Whole Blood 108 mg/dL (70-110)
[2023-12-27 20:40] LABS: Glucose,Whole Blood 118 mg/dL (70-110)
[2023-12-27] MEDS ORDERED: [UNRECOGNIZED DRUG - OTHER] PO SCH (21:00)
--- NOTE | 2023-12-27 21:01 | XR ---
EXAMINATION: XR chest 1V portable 12/27/2023 8:53 PM CLINICAL INDICATION: PHH; Resp distress TECHNIQUE: Semiupright AP portable COMPARISON: 12/27/2023 11:22 AM FINDINGS / IMPRESSION: There is mild silhouetting of the pulmonary vasculature bilaterally by small scattered ill-defined li near and tiny bandlike added opacities throughout the lungs, most conspicuous in the retrocardiac lef t lower lobe. These nonspecific findings can correlate with a clinical diagnosis of developing bronch opneumonia. The pleural spaces are negative. The cardiac silhouette is not enlarged. The skeletal structures and soft tissues are negative for acute findings.
[2023-12-27] MEDS: DEXMEDETOMIDINE/0.9% NACL(PMX) 400 MCG in EMPTY BAG 1 BAG IV SCH (21:12)
[2023-12-27] MEDS: DEXTROSE 5% IN WATER 1,000 ML IV ONE (21:13)
[2023-12-27] MEDS ORDERED: LORazepam 2 MG/ML INJ IV PRN (21:54)
[2023-12-27] MEDS: levETIRAcetam IV 500 MG/5 ML VIAL IVP SCH (22:16)
[2023-12-27] MEDS: TAMSULOSIN 0.4 MG CAP.ER.24H PO SCH (23:29)
[2023-12-27] MEDS: DOCUSATE 100 MG CAP PO SCH (23:29)
[2023-12-27] MEDS: BACLOFEN 10 MG TAB PO SCH (23:29)
[2023-12-27] MEDS: propofoL 100 ML IV ONE (23:31)
[2023-12-28] MEDS: HEPARIN SODIUM,PORCINE 5,000 UNIT/ML 1 ML VIAL SQ SCH (00:45)
[2023-12-28] MEDS: methylPREDNISolone SOD SUCCI 125 MG/2 ML VIAL IV SCH (00:54)
--- NOTE | 2023-12-28 01:18 | P.HPIM ---
History of Present Illness H&P Date: 12/27/23 Chief Complaint: Generalized weakness and tremors Patient is a 78-year-old maleWith a past medical history of COPD, hypertension, Parkinson's disease, anxiety was sent from PCPs office due to generalized weakness and worsening Parkinson's disease. Patient was also having altered mental status with hallucinations and falling more frequently. Patient mumbles and sees things that are not there. Patient has been talking to people who is not really there. He has been having symptoms for the past 1 week. Patient has been afebrile. No nausea vomiting or diarrhea. No cough or sputum production. History was taken with his at bedside. Chest x-ray showed no acute cardiopulmonary process. CT head showed no acute intracranial CT abnormality. Moderate to severe atrophy and chronic microvascular ischemic changes. Pansinus mucosal thickening. On admission patient blood pressure was 173/100 pulse is 72 respiration 22 and pulse ox 96% on room air. Laboratory data showed WBC 8.7 hemoglobin 11.2 and platelets 230 Sodium 147 potassium 4.4 chloride 117 bicarb is 20 BUN 59 and creatinine 2.23 and blood sugar 106 lactic acid 2.2 magnesium 2.3 AST 61 ALT 11 and alk phos 107 Urinalysis showed 1+ protein trace ketones and RBCs. WBCs 4 Influenza AB RSV and COVID-19 PCR not detected. Review of Systems ROS unobtainable: due to mental status Past Medical History Past Medical History: COPD, Hypertension Additional Past Medical History / Comment(s): parkinson's, sinusitis, History of Any Multi-Drug Resistant Organisms: None Reported Past Surgical History: Adenoidectomy, Tonsillectomy Additional Past Surgical History / Comment(s): nasal polyp, colonoscopy Past Anesthesia/Blood Transfusion Reactions: No Reported Reaction Past Psychological History: Anxiety Past Alcohol Use History: Rare Past Drug Use History: None Reported - Past Family History Mother Family Medical History: CVA/TIA, Myocardial Infarction ([place]) Father Family Medical History: Cancer Additional Family Medical History / Comment(s): Father of metastatic cancer-primary unknown to patient. Medications and Allergies Home Medications Medication Instructions Recorded Confirmed Type Baclofen [Lioresal] 20 mg PO HS 02/26/17 12/27/23 History Carbidopa/Levodopa [Sinemet CR 1 tab PO TID@1000,1400,1800 02/26/17 12/27/23 History 50-200 mg] Citalopram Hydrobromide [CeleXA] 30 mg PO DAILY 02/26/17 12/27/23 History Alfuzosin HCl [Uroxatral ER] 10 mg PO HS 09/30/17 12/27/23 History Carbidopa-Levodopa 25-100 mg 1 tab PO TID@1000,1400,1800 08/19/23 12/27/23 History [Sinemet 25-100 mg] Docusate [Colace] 100 mg PO HS 12/27/23 12/27/23 History Lower Bowel Stimulant 1 cap PO HS 12/27/23 12/27/23 History amantadine HCL [Amantadine] 100 mg PO TID@1000,1400,1800 12/27/23 12/27/23 History Allergies Allergy/AdvReac Type Severity Reaction Status Date / Time Penicillins Allergy Itching Verified 12/27/23 12:16 ciprofloxacin AdvReac Confusion Verified 12/27/23 12:16 nitrofurantoin AdvReac Confusion Verified 12/27/23 12:16 [From Macrobid] Physical Exam Vitals: Vital Signs Temp Pulse Resp BP Pulse Ox 12/27/23 15:16 82 20 115/92 94 L 12/27/23 13:13 77 20 176/80 95 12/27/23 10:22 72 20 176/80 95 12/27/23 10:14 97.8 F 72 22 173/100 96 Intake and Output 12/27/23 12/27/23 12/27/23 06:59 14:59 22:59 Other: Weight 62.596 kg PHYSICAL EXAMINATION: Patient is currently lying in the bed with severe tremors and rigidity of the upper and lower extremities.. HEENT: Normocephalic. Neck is supple. Pupils reactive. Nostrils clear. Mucosa dry. Neck reveals no JVD, carotid bruits, or thyromegaly. CHEST EXAMINATION: Trachea is central. Symmetrical expansion. Bibasilar diminished sounds. CARDIAC: Normal S1, S2 with no gallops. No murmurs ABDOMEN: Soft. Bowel sounds normal. No organomegaly. No abdominal bruits. Extremities: reveal no edema. No clubbing or cyanosis Neurologically awake, alert, oriented x 1 patient has tremors and involuntary movements. No gross focal deficits noted Skin: No rash or skin lesions. Psychiatric: Could not be assessed completely Musculoskeletal: No joint swelling or deformity. Results CBC & Chem 7: 12/27/23 10:53 12/27/23 10:53 Labs: Abnormal Lab Results - Last 24 Hours (Table) 12/27/23 12/27/23 12/27/23 Range/Units 10:53 10:53 10:53 RBC 3.38 L (4.30-5.90) m/uL Hgb 11.2 L (13.0-17.5) gm/dL Hct 33.7 L (39.0-53.0) % Sodium 147 H (137-145) mmol/L Chloride 117 H (98-107) mmol/L Carbon Dioxide 20 L (22-30) mmol/L BUN 59 H (9-20) mg/dL Creatinine 2.23 H (0.66-1.25) mg/dL Glucose 106 H (74-99) mg/dL Plasma Lactic Acid Fidel (0.7-2.0) mmol/L AST 61 H (17-59) U/L Urine Protein 1+ H (Negative) Urine Ketones Trace H (Negative) Hyaline Casts 3 H (0-2) /lpf Urine Mucus Rare H (None) /hpf 12/27/23 Range/Units 10:53 RBC (4.30-5.90) m/uL Hgb (13.0-17.5) gm/dL Hct (39.0-53.0) % Sodium (137-145) mmol/L Chloride (98-107) mmol/L Carbon Dioxide (22-30) mmol/L BUN (9-20) mg/dL Creatinine (0.66-1.25) mg/dL Glucose (74-99) mg/dL Plasma Lactic Acid Fidel 2.2 H* (0.7-2.0) mmol/L AST (17-59) U/L Urine Protein (Negative) Urine Ketones (Negative) Hyaline Casts (0-2) /lpf Urine Mucus (None) /hpf Thrombosis Risk Factor Assmnt - DVT/VTE Prophylaxis DVT/VTE Prophylaxis: Pharmacologic Prophylaxis ordered Assessment and Plan Assessment: Dyskinesia with history of Parkinson disease Visual hallucinations Generalized weakness Hyponatremia due to dehydration and volume depletion COPD not in exacerbation Hypertension uncontrolled on admission GI and DVT prophylaxis Plan: Patient will be continued on IV hydration with D5 water. Patient was given a do se of IV Ativan in the ER. Patient will be started back on Sinemet and continue with close follow-up with questions. Neurology consult for further evaluation. Urinalysis and chest x-ray is negative at this time. Continue DuoNebs as needed. Follow-up closely. Discussed with his at bedside in detail. Time with Patient: Greater than 30
[2023-12-28] MEDS: AZITHROMYCIN 500 MG in SODIUM CHLORIDE 0.9% 250 ML IVPB SCH (01:41)
--- NOTE | 2023-12-28 03:18 | P.CNPUL ---
History of Present Illness Consult date: 12/28/23 Requesting physician: Louise Magallon Reason for consult: dyspnea Chief complaint: Altered mental status, respiratory distress History of present illness: I am seeing this patient in new consultation today 12/28/2023 in the intensive care unit after the patient was evaluated on a A-team earlier last night and transferred to the intensive care unit for acute respiratory distress and altered mental status. Patient is a 78-year-old white male with past medical history significant for Parkinson disease, COPD, hypertension. Patient is currently minimally arousable and unable to provide any information. No family is present. Apparently, the patient presented to the emergency room yesterday morning. His had noticed that over the last several months his mentation has been worsening. He was having hallucinations and seeing things that were not there. He was mumbling and has generalized weakness. He has had frequent falls and walks with walker. He is also had 1 to 2 weeks of URI-like symptoms. Patient was initially admitted to [facility], however, the staff nurse called a rapid response soon after arrival. Patient was evaluated by the rapid response team, found to be in respiratory distress, and transferred to the intensive care unit. He was initially placed on a 15 L nonrebreather. The patient was not intubated as he has advanced directives and is a DO NOT RESUSCITATE/DO NOT INTUBATE. It looks like an ABG was drawn at that time, and showed evidence of adequate ventilation. PaO2 was 76, pCO2 was 37, pH of 7.35. This was done on 2 L nasal cannula. Chest x-ray was repeated after moving the patient to the intensive care unit showed mild silhouetting of the pulmonary vasculature bilaterally by small scattered ill-defined linear and tiny bandlike added opacities throughout the lung, most conspicuous is in the retrocardiac space. There was also some questionable seizure-like activity that was not directly observed by me. The ICU nurse reports episodic rigidity that lasted 10 to 15 seconds with periods of responsiveness in between. This involves all 4 extremities. No loss of bladder or bowel function. No reported aspiration. No postictal behavior reported. Patient was actually agitated and started on a Precedex infusion which is currently infusing at 0.2 mcg/kg/hr, he is now obtunded, and we are working on titrating this down. During the questionable seizure-like activity, the patient was loaded with 1.5 g of Keppra. No further activity reported. Brain CT done on arrival does not show any acute intracranial abnormality, there is moderate to severe atrophy and chronic microvascular ischemic. Patient is currently lying in bed, minimally responsive to painful stimuli, withdraws to pain in all 4 extremities. He does not follow commands. He has generalized tremors and rigidity of all extremities. He is on a 15 L nonrebreather. SpO2 is 100%. He has a bedside sitter. Precedex is infusing as noted above. CBC on arrival: WBC count 8.7, hemoglobin 11.2, hematocrit 33.7, platelets 230. BMP on arrival: Sodium 147, potassium to 4.4, chloride 117, serum bicarb 20, BUN 59, creatinine 2.23, glucose 106. Lactic acid level 2.2 and down to 1.1. Urinalysis not concerning for UTI. Negative for influenza, RSV, COVID. He did have a low-gr killian temperature of 100.1 F earlier. Vital signs otherwise stable. Review of Systems ROS unobtainable: due to mental status Past Medical History Past Medical History: COPD, Hypertension Additional Past Medical History / Comment(s): parkinson's, sinusitis, History of Any Multi-Drug Resistant Organisms: None Reported Past Surgical History: Adenoidectomy, Tonsillectomy Additional Past Surgical History / Comment(s): nasal polyp, colonoscopy Past Anesthesia/Blood Transfusion Reactions: No Reported Reaction Past Psychological History: Anxiety Past Alcohol Use History: Rare Past Drug Use History: None Reported - Past Family History Mother Family Medical History: CVA/TIA, Myocardial Infarction ([place]) Father Family Medical History: Cancer Additional Family Medical History / Comment(s): Father of metastatic cancer-primary unknown to patient. Medications and Allergies Home Medications Medication Instructions Recorded Confirmed Type Baclofen [Lioresal] 20 mg PO HS 02/26/17 12/27/23 History Carbidopa/Levodopa [Sinemet CR 1 tab PO TID@1000,1400,1800 02/26/17 12/27/23 History 50-200 mg] Citalopram Hydrobromide [CeleXA] 30 mg PO DAILY 02/26/17 12/27/23 History Alfuzosin HCl [Uroxatral ER] 10 mg PO HS 09/30/17 12/27/23 History Carbidopa-Levodopa 25-100 mg 1 tab PO TID@1000,1400,1800 08/19/23 12/27/23 History [Sinemet 25-100 mg] Docusate [Colace] 100 mg PO HS 12/27/23 12/27/23 History Lower Bowel Stimulant 1 cap PO HS 12/27/23 12/27/23 History amantadine HCL [Amantadine] 100 mg PO TID@1000,1400,1800 12/27/23 12/27/23 Hist ory Allergies Allergy/AdvReac Type Severity Reaction Status Date / Time Penicillins Allergy Itching Verified 12/27/23 12:16 ciprofloxacin AdvReac Confusion Verified 12/27/23 12:16 nitrofurantoin AdvReac Confusion Verified 12/27/23 12:16 [From Macrobid] Physical Exam Vitals: Vital Signs Temp Pulse Pulse Resp BP BP BP 12/28/23 01:00 77 25 H 152/78 12/28/23 00:50 79 24 152/78 12/28/23 00:40 26 H 139/78 12/28/23 00:30 59 L 21 129/64 12/28/23 00:20 56 L 22 129/64 12/28/23 00:10 56 L 22 136/59 12/28/23 00:00 99.1 F 55 L 26 H 140/66 12/27/23 23:51 12/27/23 23:50 59 L 26 H 140/66 12/27/23 23:49 60 24 140/66 12/27/23 23:40 66 21 151/69 12/27/23 23:30 65 23 154/73 12/27/23 23:20 65 21 154/73 12/27/23 23:10 72 23 164/104 12/27/23 23:00 77 26 H 168/69 12/27/23 22:50 77 25 H 168/69 12/27/23 22:40 78 18 183/112 12/27/23 22:30 82 26 H 164/49 12/27/23 22:20 80 34 H 164/49 12/27/23 22:10 81 27 H 66/54 12/27/23 22:00 80 28 H 159/113 12/27/23 21:50 83 32 H 159/113 12/27/23 21:42 12/27/23 21:40 84 29 H 179/82 12/27/23 21:30 92 31 H 169/89 12/27/23 21:20 87 33 H 169/89 12/27/23 21:13 36 H 12/27/23 21:10 89 29 H 129/77 12/27/23 21:00 92 32 H 210/90 12/27/23 20:50 99 32 H 12/27/23 20:40 97 33 H 12/27/23 20:36 12/27/23 20:15 100.1 F H 87 34 H 171/67 12/27/23 20:00 98.0 F 83 34 H 106/57 12/27/23 17:34 85 195/75 12/27/23 17:22 86 32 H 12/27/23 16:51 82 20 171/89 12/27/23 16:50 171/89 12/27/23 16:40 84 26 H 115/92 12/27/23 16:30 90 34 H 115/92 12/27/23 16:20 90 37 H 115/92 12/27/23 16:10 84 34 H 115/92 12/27/23 16:00 83 24 115/92 12/27/23 15:50 83 115/92 12/27/23 15:40 115/92 12/27/23 15:30 84 115/92 12/27/23 15:20 84 24 115/92 12/27/23 15:16 82 20 115/92 12/27/23 15:10 81 176/80 12/27/23 15:00 176/80 12/27/23 14:50 176/80 12/27/23 14:40 26 H 176/80 12/27/23 14:30 79 31 H 176/80 12/27/23 14:20 81 27 H 176/80 12/27/23 14:10 81 20 176/80 12/27/23 14:00 16 176/80 12/27/23 13:50 81 45 H 176/80 12/27/23 13:40 25 H 12/27/23 13:30 25 H 176/80 12/27/23 13:20 12 176/80 12/27/23 13:13 77 20 176/80 12/27/23 13:10 73 27 H 176/80 12/27/23 13:00 76 27 H 176/80 12/27/23 12:50 71 29 H 176/80 12/27/23 12:40 22 12/27/23 12:30 73 17 176/80 12/27/23 12:20 72 16 12/27/23 12:10 70 15 176/80 12/27/23 12:00 71 21 176/80 12/27/23 11:50 72 44 H 176/80 12/27/23 11:40 73 24 176/80 12/27/23 11:30 71 35 H 176/80 12/27/23 11:20 15 176/80 12/27/23 11:10 176/80 12/27/23 11:00 67 43 H 176/80 12/27/23 10:50 67 16 176/80 12/27/23 10:40 70 18 176/80 12/27/23 10:22 72 20 176/80 12/27/23 10:14 97.8 F 72 22 173/100 Pulse Ox FiO2 12/28/23 01:00 93 L 12/28/23 00:50 95 12/28/23 00:40 95 12/28/23 00:30 100 12/28/23 00:20 100 12/28/23 00:10 100 12/28/23 00:00 100 15 12/27/23 23:51 100 12/27/23 23:50 100 12/27/23 23:49 100 12/27/23 23:40 100 12/27/23 23:30 100 12/27/23 23:20 100 12/27/23 23:10 100 12/27/23 23:00 100 12/27/23 22:50 100 12/27/23 22:40 100 12/27/23 22:30 100 12/27/23 22:20 100 12/27/23 22:10 100 12/27/23 22:00 79 L 12/27/23 21:50 95 12/27/23 21:42 60 12/27/23 21:40 91 L 12/27/23 21:30 93 L 12/27/23 21:20 98 12/27/23 21:13 12/27/23 21:10 96 12/27/23 21:00 99 12/27/23 20:50 96 12/27/23 20:40 98 12/27/23 20:36 93 L 12/27/23 20:15 91 L 12/27/23 20:00 97 12/27/23 17:34 12/27/23 17:22 92 L 12/27/23 16:51 95 12/27/23 16:50 12/27/23 16:40 12/27/23 16:30 12/27/23 16:20 12/27/23 16:10 12/27/23 16:00 92 L 12/27/23 15:50 92 L 12/27/23 15:40 92 L 12/27/23 15:30 94 L 12/27/23 15:20 94 L 12/27/23 15:16 94 L 12/27/23 15:10 94 L 12/27/23 15:00 92 L 12/27/23 14:50 94 L 12/27/23 14:40 94 L 12/27/23 14:30 91 L 12/27/23 14:20 94 L 12/27/23 14:10 93 L 12/27/23 14:00 94 L 12/27/23 13:50 94 L 12/27/23 13:40 95 12/27/23 13:30 93 L 12/27/23 13:20 95 12/27/23 13:13 95 12/27/23 13:10 12/27/23 13:00 12/27/23 12:50 12/27/23 12:40 12/27/23 12:30 12/27/23 12:20 12/27/23 12:10 12/27/23 12:00 12/27/23 11:50 12/27/23 11:40 12/27/23 11:30 12/27/23 11:20 97 12/27/23 11:10 12/27/23 11:00 12/27/23 10:50 92 L 12/27/23 10:40 95 12/27/23 10:22 95 12/27/23 10:14 96 Intake and Output 12/27/23 12/27/23 12/28/23 14:59 22:59 06:59 Intake Total 75 257.132 Balance 75 257.132 Intake: Intake, IV Titration 75 257.132 Amount Dexmedetomidine/0.9% NaCl 32.132 (Pmx) 400 mcg In Empty Bag 1 bag @ 0.2 MCG/KG/HR 3.13 mls/hr IV .Q24H [facility] Rx#:[id number] Dextrose 5% in Water 1, 75 225 000 ml @ 75 mls/hr IV . [id number] ONE Rx#:[id number] Other: Voiding Method Diaper # Voids 1 Weight 62.596 kg 62.596 kg GENERAL EXAM: Obtunded 78-year-old white male, cachectic, generalized rigidity and tremor, does not follow commands. HEAD: Normocephalic and atraumatic EYES: Normal reaction of pupils, equal size. NOSE: Clear with pink turbinates. THROAT: No erythema or exudates. NECK: No masses, no JVD. CHEST: No chest wall deformity. LUNGS: Equal air entry with coarse rhonchi heard throughout. Currently on a 15 L nonrebreather, SpO2 is 100%. There are supraclavicular and abdominal retractions CVS: S1 and S2 normal with no audible murmur, regular rhythm. No extra heart sounds ABDOMEN: No hepatosplenomegaly, active bowel sounds, no guarding or rigidity. SPINE: Severe kyphosis SKIN: No rashes. Scabs/crusts noted on bilateral shins. Erythemic but no drainage. CENTRAL NERVOUS SYSTEM: Patient is currently obtunded, does not follow commands, neurological exam is limited. Withdraws to pain in all 4 extremities. EXTREMITIES: There is no peripheral edema, clubbing, or cyanosis. Peripheral pulses are intact. Results - Laboratory Findings CBC and BMP: 12/28/23 04:25 12/28/23 04:25 ABG ABG pH 7.35 (7.35-7.45) 12/27/23 19:36 ABG pCO2 37 mmHg (35-45) 12/27/23 19:36 ABG pO2 76 mmHg (83-108) L 12/27/23 19:36 ABG O2 Saturation 94.4 % (94-97) 12/27/23 19:36 PT/INR, D-dimer PT 10.7 sec (10.0-12.5) 12/27/23 10:53 INR 1.0 (<1.2) 12/27/23 10:53 Abnormal lab findings: Abnormal Labs 12/27/23 12/27/23 12/27/23 10:53 10:53 10:53 RBC 3.38 L Hgb 11.2 L Hct 33.7 L ABG pO2 ABG HCO3 Sodium 147 H Chloride 117 H Carbon Dioxide 20 L BUN 59 H Creatinine 2.23 H Glucose 106 H POC Glucose (mg/dL) Plasma Lactic Acid Fidel AST 61 H Urine Protein 1+ H Urine Ketones Trace H Hyaline Casts 3 H Urine Mucus Rare H 12/27/23 12/27/23 12/27/23 10:53 19:36 20:37 RBC Hgb Hct ABG pO2 76 L ABG HCO3 20 L Sodium Chloride Carbon Dioxide BUN Creatinine Glucose POC Glucose (mg/dL) 118 H Plasma Lactic Acid Fidel 2.2 H* AST Urine Protein Urine Ketones Hyaline Casts Urine Mucus - Diagnostic Findings Chest x-ray: image reviewed Assessment and Plan Assessment: Suspected acute COPD exacerbation, chest x-ray mild silhouetting of the pulmonary vasculature bilaterally by small scattered ill-defined linear and tiny bandlike added opacities throughout the lung, most conspicuous is in the retrocardiac space, possible bronchopneumonia. Acute hypoxemic respiratory failure, likely secondary to above Acute febrile illness Questionable seizure-like activity Altered mental status, likely secondary to acute metabolic encephalopathy and Parkinson's dementia. Brain CT done on arrival does not show any acute intracranial abnormality, there is moderate to severe atrophy and chronic microvascular ischemic changes. Visual hallucinations History of Parkinson's disease, maintained on Sinemet and amantadine at home. Acute on chronic kidney disease, secondary to severe dehydration and reduced oral intake Hypertension History of BPH Plan: Patient medications, labs, chest x-ray reviewed Continue supplemental oxygen, to maintain oxygen saturation of 92% or greater Continue empiric antibiotics procalcitonin level pending Continue combination of bronchodilators, budesonide inhalation, formoterol inhalation, and IV Solu-Medrol Continue to wean Precedex as tolerated Continue safety instructor Neurology has been asked to see this patient in regards to his questionable seizure-like activity. He was loaded with Keppra. As needed Ativan for seizure termination. No further activity in question noted. EEG pending for the morning. Avoid dopamine blocking agents. Patient is a DO NOT RESUSCITATE/DO NOT INTUBATE, apparently there is paperwork to support this. He will not be intubated. Patient will be continued monitored in the intensive care unit. I have personally seen and examined the patient, performed the documentation and the assessment and plan as written. Number of minutes spent on the visit:20 On today's evaluation of 12/28/2023, I am seeing the patient in conjunction with the nurse practitioner. This is a joint evaluation that was done along with the nurse practitioner. I attended on this patient last night. The patient was having increased restlessness, hallucinations, agitations, mentation was altered and the patient was profoundly delirious. The patient was brought into the intensive care for further monitoring. An EEG was done this morning and showed no evidence of any seizure activity. Meanwhile, the patient was not started on Keppra. Awaiting final neurology consultation. Based on my discussion with the nursing staff and the family, the patient has advanced Parkinson disease with severe dementia. The patient is unable to maintain functions of life. He requires assistance for feeding. He has been falling frequently. His health status has been extremely poor. He has already signed paperwork for DNR/DNI CODE STATUS. Also, he has made recommendations for short-term medical support should his condition get worse and not improve on conventional treatment. At this point in time, the patient is on Precedex to control his increased restlessness and agitation. Awaiting neurology consultation. Meanwhile, we will going to avoid any dopamine blocking agents. Aspiration precautions. Continue bronchodilators. Continue antibiotics which are essentially empiric at this point in time. Prognosis poor. It seems that the patient may be headed towards end-of-life care and final decision will be done within next 24 hours after having further discussion with the rest of the consultants. Meanwhile, the patient will be kept in the intensive care unit. Again this is a joint evaluation that was done along with the nurse practitioner. Been attending on this patient since last night and collaborating with the rest of the consultants. Time with Patient: Greater than 30
[2023-12-28] MEDS: IPRATROPIUM-ALBUTEROL 3 ML NEB INHALATION SCH (03:36)
[2023-12-28] MEDS: CITALOPRAM HYDROBROMIDE 20 MG TAB PO SCH (08:06)
[2023-12-28] MEDS: BUDESONIDE 1 MG/2 ML NEBU INHALATION SCH (08:34)
[2023-12-28] MEDS: FORMOTEROL FUMARATE 20 MCG/2 ML NEBU INHALATION SCH (08:34)
[2023-12-28 08:39] LABS: Basophils # (A) 0.04 X 10*3/uL (0.00-0.10); Basophils % (A) 0.3 %; Eosinophils # (A) 0.01 X 10*3/uL (0.04-0.35); Eosinophils % (A) 0.1 %; HCT 31.5 % (39.6-50.0); HGB 10.2 g/dL (13.0-17.0); Lymphocytes # (A) 1.43 X 10*3/uL (0.90-5.00); Lymphocytes % (A) 12.3 %; MCH 32.2 pg (27.0-32.0); MCHC 32.4 g/dL (32.0-37.0); MCV 99.4 FL (80.0-97.0); Mean Platelet Volume 10.5 FL (9.5-12.2); Monocytes # (A) 0.28 X 10*3/uL (0.20-1.00); Monocytes % (A) 2.4 %; NRBC Per 100 WBC 0 X 10*3/uL (0.00-0.01); Neutrophils # (A) 9.82 X 10*3/uL (1.80-7.70); Neutrophils % (A) 84.5 %; Platelet Count 217 X 10*3/uL (140-440); RBC 3.17 X 10*6/uL (4.40-5.60); RDW 12.9 % (11.5-14.5); WBC 11.63 X 10*3/uL (4.50-10.00)
[2023-12-28] MEDS: levETIRAcetam IV 500 MG/5 ML VIAL IVP SCH (08:41)
[2023-12-28 09:29] LABS: BUN/Creat Ratio 24.39 Ratio (12.00-20.00); Blood Urea Nitrogen 43.9 mg/dL (9.0-27.0); Carbon Dioxide 18.8 mmol/L (21.6-31.8); Chloride 117 mmol/L (96-109); Glucose 144 mg/dL (70-110); Potassium 4.7 mmol/L (3.5-5.5); Sodium 149 mmol/L (135-145)
[2023-12-28] MEDS: SODIUM CHLORIDE 0.45% 1,000 ML IV SCH (10:15)
[2023-12-28] MEDS: HYDROmorphone 1 MG/ML 1 ML SYRINGE IVP PRN (10:20)
[2023-12-28] MEDS ORDERED: IPRATROPIUM-ALBUTEROL 3 ML NEB INHALATION PRN (11:44)
--- NOTE | 2023-12-28 12:16 | EEG ---
ELECTROENCEPHALOGRAM REPORT PREAMBLE: This is an 78-year-old male with Parkinson disease, has some seizure-like activity. EEG FINDINGS: This is a 21-channel digital EEG recorded with video component, utilizing 10/20 international system with referential and bipolar montages. Background consists of moderately well-developed, but not very well regulated, mixed frequencies of 10 hertz alpha, intermixed with superimposed delta slowing in bihemispheric region. Additional focal slowing in the delta range was seen in the left frontal parietal region. Different stages of sleep were not seen. Photic driving response was not clearly seen. No focal or generalized epileptiform activity was seen. IMPRESSION: Abnormal EEG due to: 1. Background slowing, [id number] degree, suggestive of encephalopathy. 2. Additional possible left frontal parietal slowing, may suggest focal cortical neuronal dysfunction. No epileptiform activity was seen. MMLORI / REINA: [id number] /
[2023-12-28 12:31] VITALS: RESP 16; TEMP 98.2
[2023-12-28 16:07] VITALS: BP 123/87; PULSE 47
--- NOTE | 2023-12-28 23:22 | P.PN ---
Subjective Progress Note Date: 12/28/23 Patient is a 78-year-old maleWith a past medical history of COPD, hypertension, Parkinson's disease, anxiety was sent from PCPs office due to generalized weakness and worsening Parkinson's disease. Patient was also having altered mental status with hallucinations and falling more frequently. Patient mumbles and sees things that are not there. Patient has been talking to people who is not really there. He has been having symptoms for the past 1 week. Patient has been afebrile. No nausea vomiting or diarrhea. No cough or sputum production. History was taken with his at bedside. Chest x-ray showed no acute cardiopulmonary process. CT head showed no acute intracranial CT abnormality. Moderate to severe atrophy and chronic microvascular ischemic changes. Pansinus mucosal thickening. On admission patient blood pressure was 173/100 pulse is 72 respiration 22 and pulse ox 96% on room air. Laboratory data showed WBC 8.7 hemoglobin 11.2 and platelets 230 Sodium 147 potassium 4.4 chloride 117 bicarb is 20 BUN 59 and creatinine 2.23 and blood sugar 106 lactic acid 2.2 magnesium 2.3 AST 61 ALT 11 and alk phos 107 Urinalysis showed 1+ protein trace ketones and RBCs. WBCs 4 Influenza AB RSV and COVID-19 PCR not detected. 12/28/2023 Patient is currently in the MICU. Patient was initially admitted to . Rapid response team was called due to respiratory distress and patient was placed on 15 L nonrebreather. Eventually patient was transferred to the MICU. ABG showed pCO2 37 pO2 76 and pH 7.35. Patient was titrated down to 2 L oxygen via nasal cannula. Chest x-ray showed mild silhouetting of the pulmonary vasculature bilaterally by small scattered ill-defined linear and tiny bandlike thyroid opacities throughout the lungs most conspicuous is in the retrocardiac space. Patient is still having tremors and rigidity. Could not provide any history. EEG was done and neurology is on board. Laboratory data showed WBC 11.6 hemoglobin 10.2 and platelets 217 Sodium 149 potassium 4.7 chloride 107 bicarb is 18.8 BUN 43.9 creatinine 1.8 and blood sugar 144 procalcitonin level was 0.06, TSH 3.850 and B12 610. Objective - Vital Signs Vital signs: Vital Signs Temp 98.8 F 12/28/23 08:00 Pulse 65 03/22/24 10:00 Resp 26 H 12/28/23 10:00 BP 151/73 12/28/23 10:00 Pulse Ox 96 12/28/23 10:00 FiO2 15 12/28/23 00:00 Intake & Output 12/27/23 12/28/23 12/28/23 18:59 06:59 18:59 Intake Total 762.269 236.260 Output Total 500 300 Balance 262.269 -63.740 Weight 62.596 kg 64.4 kg Intake: IV 210 Invasive Line 1 10 Invasive Line 2 10 Sodium Chloride 0.45% 1, 150 000 ml @ 150 mls/hr IV . [id number] LYN Rx#:[id number] Sodium Chloride 0.9% 1, 40 000 ml @ 20 mls/hr IV . Q24H LYN Rx#:[id number] Intake, IV Titration 762.269 26.260 Amount Dexmedetomidine/0.9% NaCl 87.269 6.260 (Pmx) 400 mcg In Empty Bag 1 bag @ 0.2 MCG/KG/HR 3.13 mls/hr IV .Q24H LYN Rx#:[id number] Dextrose 5% in Water 1, 675 000 ml @ 75 mls/hr IV . [id number] ONE Rx#:[id number] Sodium Chloride 0.9% 1, 20 000 ml @ 20 mls/hr IV . Q24H LYN Rx#:[id number] Output: Urine 500 300 Other: Voiding Method Diaper External Catheter # Voids 1 - Exam PHYSICAL EXAMINATION: Patient is currently lying in the bed with severe tremors and rigidity of the upper and lower extremities.. HEENT: Normocephalic. Neck is supple. Pupils reactive. Nostrils clear. Mucosa dry. Neck reveals no JVD, carotid bruits, or thyromegaly. CHEST EXAMINATION: Trachea is central. Symmetrical expansion. Bibasilar dimi nished sounds. CARDIAC: Normal S1, S2 with no gallops. No murmurs ABDOMEN: Soft. Bowel sounds normal. No organomegaly. No abdominal bruits. Extremities: reveal no edema. No clubbing or cyanosis Neurologically awake, alert, oriented x 1 patient has tremors and involuntary movements. No gross focal deficits noted Skin: No rash or skin lesions. Psychiatric: Could not be assessed completely Musculoskeletal: No joint swelling or deformity. - Labs CBC & Chem 7: 12/28/23 04:25 12/28/23 04:25 Labs: Abnormal Lab Results - Last 24 Hours (Table) 12/27/23 12/27/23 12/27/23 Range/Units 10:53 10:53 10:53 WBC (4.50-10.00) X 10*3/uL RBC 3.38 L (4.30-5.90) m/uL Hgb 11.2 L (13.0-17.5) gm/dL Hct 33.7 L (39.0-53.0) % MCV (80.0-97.0) FL MCH (27.0-32.0) pg Immature Gran # (0.00-0.04) X 10*3/uL Neutrophils # (1.80-7.70) X 10*3/uL Eosinophils # (0.04-0.35) X 10*3/uL ABG pO2 (83-108) mmHg ABG HCO3 (21-25) mmol/L Sodium 147 H (137-145) mmol/L Chloride 117 H (98-107) mmol/L Carbon Dioxide 20 L (22-30) mmol/L Anion Gap (4.00-12.00) mmol/L BUN 59 H (9-20) mg/dL Creatinine 2.23 H (0.66-1.25) mg/dL Est GFR (CKD-EPI) (>=60) BUN/Creatinine Ratio (12.00-20.00) Ratio Glucose 106 H (74-99) mg/dL POC Glucose (mg/dL) (70-110) mg/dL Plasma Lactic Acid Fidel (0.7-2.0) mmol/L AST 61 H (17-59) U/L Urine Protein 1+ H (Negative) Urine Ketones Trace H (Negative) Hyaline Casts 3 H (0-2) /lpf Urine Mucus Rare H (None) /hpf 12/27/23 12/27/23 12/27/23 Range/Units 10:53 19:36 20:37 WBC (4.50-10.00) X 10*3/uL RBC (4.30-5.90) m/uL Hgb (13.0-17.5) gm/dL Hct (39.0-53.0) % MCV (80.0-97.0) FL MCH (27.0-32.0) pg Immature Gran # (0.00-0.04) X 10*3/uL Neutrophils # (1.80-7.70) X 10*3/uL Eosinophils # (0.04-0.35) X 10*3/uL ABG pO2 76 L (83-108) mmHg ABG HCO3 20 L (21-25) mmol/L Sodium (137-145) mmol/L Chloride (98-107) mmol/L Carbon Dioxide (22-30) mmol/L Anion Gap (4.00-12.00) mmol/L BUN (9-20) mg/dL Creatinine (0.66-1.25) mg/dL Est GFR (CKD-EPI) (>=60) BUN/Creatinine Ratio (12.00-20.00) Ratio Glucose (74-99) mg/dL POC Glucose (mg/dL) 118 H (70-110) mg/dL Plasma Lactic Acid Fidel 2.2 H* (0.7-2.0) mmol/L AST (17-59) U/L Urine Protein (Negative) Urine Ketones (Negative) Hyaline Casts (0-2) /lpf Urine Mucus (None) /hpf 12/28/23 12/28/23 Range/Units 04:25 04:25 WBC 11.63 H (4.50-10.00) X 10*3/uL RBC 3.17 L (4.30-5.90) m/uL Hgb 10.2 L (13.0-17.5) gm/dL Hct 31.5 L (39.0-53.0) % MCV 99.4 H (80.0-97.0) FL MCH 32.2 H (27.0-32.0) pg Immature Gran # 0.05 H (0.00-0.04) X 10*3/uL Neutrophils # 9.82 H (1.80-7.70) X 10*3/uL Eosinophils # 0.01 L (0.04-0.35) X 10*3/uL ABG pO2 (83-108) mmHg ABG HCO3 (21-25) mmol/L Sodium 149 H (137-145) mmol/L Chloride 117 H (98-107) mmol/L Carbon Dioxide 18.8 L (22-30) mmol/L Anion Gap 13.20 H (4.00-12.00) mmol/L BUN 43.9 H (9-20) mg/dL Creatinine 1.8 H (0.66-1.25) mg/dL Est GFR (CKD-EPI) 38 L (>=60) BUN/Creatinine Ratio 24.39 H (12.00-20.00) Ratio Glucose 144 H (74-99) mg/dL POC Glucose (mg/dL) (70-110) mg/dL Plasma Lactic Acid Fidel (0.7-2.0) mmol/L AST (17-59) U/L Urine Protein (Negative) Urine Ketones (Negative) Hyaline Casts (0-2) /lpf Urine Mucus (None) /hpf Assessment and Plan Assessment: Acute hypoxic respiratory failure requiring oxygen at 2 L via nasal cannula. Was requiring nonrebreather initially. Suspected acute COPD exacerbation and possible bronchopneumonia Altered mental status secondary to acute metabolic encephalopathy and Parkinson's dementia Dyskinesia with rigidity and tremors history of Parkinson disease Acute on chronic disease likely prerenal Visual hallucinations Generalized weakness Hypernatremia due to dehydration and volume depletion Hypertension uncontrolled on admission GI and DVT prophylaxis CODE STATUS DNR/DNI Plan: Patient will be continued on IV hydration with D5 water. Patient was given a dose of IV Ativan in the ER. Continue with IV Ativan as needed for seizures and loaded with Keppra. Patient was started back on Sinemet but patient is unable to take any oral intake. Patient was started on antibiotics and IV Solu-Medrol and continue with oxygen supplementation. Due to continued tremors and dizziness and multiple other medical problems family is agreeable to be transferred to hospice care. Hospice care consult was placed. Patient was seen by neurology and pulmonary. Prognosis is poor at this time. Time with Patient: Greater than 30
--- NOTE | 2023-12-28 23:25 | P.DS ---
Providers Date of admission: 12/27/23 12:44 Expected date of discharge: 12/28/23 Attending physician: Louise Magallon Consults: 12/27/23 12:42 Consult Physician Routine Consulting Provider: Foster Lal Consult Reason/Comments: ams Do you want consulting provider notified?: Yes 12/27/23 20:54 Consult Physician Routine Consulting Provider: Delmer Gibbs Consult Reason/Comments: ICU management Do you want consulting provider notified?: Already Contacted Primary care physician: [facility] Course: Discharge diagnosis Acute hypoxic respiratory failure requiring oxygen at 2 L via nasal cannula. Was requiring nonrebreather initially. Suspected acute COPD exacerbation and possible bronchopneumonia Altered mental status secondary to acute metabolic encephalopathy and Parkinson's dementia Dyskinesia with rigidity and tremors history of Parkinson disease Acute on chronic disease likely prerenal Visual hallucinations Generalized weakness Hypernatremia due to dehydration and volume depletion Hypertension uncontrolled on admission GI and DVT prophylaxis CODE STATUS DNR/DNI Hospital course Patient is a 78-year-old maleWith a past medical history of COPD, hypertension, Parkinson's disease, anxiety was sent from PCPs office due to generalized weakness and worsening Parkinson's disease. Patient was also having altered mental status with hallucinations and falling more frequently. Patient mumbles and sees things that are not there. Patient has been talking to people who is not really there. He has been having symptoms for the past 1 week. Patient has been afebrile. No nausea vomiting or diarrhea. No cough or sputum production. History was taken with his at bedside. Chest x-ray showed no acute cardiopulmonary process. CT head showed no acute intracranial CT abnormality. Moderate to severe atrophy and chronic microvascular ischemic changes. Pansinus mucosal thickening. On admission patient blood pressure was 173/100 pulse is 72 respiration 22 and pulse ox 96% on room air. Laboratory data showed WBC 8.7 hemoglobin 11.2 and platelets 230 Sodium 147 potassium 4.4 chloride 117 bicarb is 20 BUN 59 and creatinine 2.23 and blood sugar 106 lactic acid 2.2 magnesium 2.3 AST 61 ALT 11 and alk phos 107 Urinalysis showed 1+ protein trace ketones and RBCs. WBCs 4 Influenza AB RSV and COVID-19 PCR not detected. 12/28/2023 Patient is currently in the MICU. Patient was initially admitted to . Rapid response team was called due to respiratory distress and patient was placed on 15 L nonrebreather. Eventually patient was transferred to the MICU. ABG showed pCO2 37 pO2 76 and pH 7.35. Patient was titrated down to 2 L oxygen via nasal cannula. Chest x-ray showed mild silhouetting of the pulmonary vasculature bilaterally by small scattered ill-defined linear and tiny bandlike thyroid opacities throughout the lungs most conspicuous is in the retrocardiac space. Patient is still having tremors and rigidity. Could not provide any history. EEG was done and neurology is on board. Laboratory data showed WBC 11.6 hemoglobin 10.2 and platelets 217 Sodium 149 potassium 4.7 chloride 107 bicarb is 18.8 BUN 43.9 creatinine 1.8 and blood sugar 144 procalcitonin level was 0.06, TSH 3.850 and B12 610. Patient was continued on IV hydration with D5 water. Patient was given a dose of IV Ativan in the ER. Continued with IV Ativan as needed for seizures and loaded with Keppra. Patient was started back on Sinemet but patient is unable to take any oral intake. Patient was started on antibiotics and IV Solu-Medrol and continue with oxygen supplementation. Due to continued tremors and dizziness and multiple other medical problems family is agreeable to be transferred to hospice care. Hospice care consult was placed. Patient was seen by neurology and pulmonary. Prognosis is poor at this time. Patient was transferred to hospice care. Discharge vitals reviewed. PHYSICAL EXAMINATION: Patient is currently lying in the bed with severe tremors and rigidity of the upper and lower extremities.. HEENT: Normocephalic. Neck is supple. Pupils reactive. Nostrils clear. Mucosa dry. Neck reveals no JVD, carotid bruits, or thyromegaly. CHEST EXAMINATION: Trachea is central. Symmetrical expansion. Mild expiratory wheeze. Bibasilar diminished sounds. CARDIAC: Normal S1, S2 with no gallops. No murmurs ABDOMEN: Soft. Bowel sounds normal. No organomegaly. No abdominal bruits. Extremities: reveal no edema. No clubbing or cyanosis Neurologically awake, alert, oriented x 0. Patient has tremors and involuntary movements. Skin: No rash or skin lesions. Psychiatric: Could not be assessed completely Musculoskeletal: No joint swelling or deformity. Patient Condition at Discharge: Poor Plan - Discharge Summary New Discharge Prescriptions: No Action Citalopram Hydrobromide [CeleXA] 30 mg PO DAILY Carbidopa/Levodopa [Sinemet CR 50-200 mg] 1 tab PO TID@1000,1400,1800 Baclofen [Lioresal] 20 mg PO HS Alfuzosin HCl [Uroxatral ER] 10 mg PO HS Carbidopa-Levodopa 25-100 mg [Sinemet 25-100 mg] 1 tab PO TID@1000,1400,1800 amantadine HCL [Amantadine] 100 mg PO TID@1000,1400,1800 Lower Bowel Stimulant 1 cap PO HS Docusate [Colace] 100 mg PO HS Discharge Medication List Baclofen [Lioresal] 20 mg PO HS 02/26/17 [History] Carbidopa/Levodopa [Sinemet CR 50-200 mg] 1 tab PO TID@1000,1400,1800 02/26/17 [History] Citalopram Hydrobromide [CeleXA] 30 mg PO DAILY 02/26/17 [History] Alfuzosin HCl [Uroxatral ER] 10 mg PO HS 09/30/17 [History] Carbidopa-Levodopa 25-100 mg [Sinemet 25-100 mg] 1 tab PO TID@1000,1400,1800 08/19/23 [History] Docusate [Colace] 100 mg PO HS 12/27/23 [History] Lower Bowel Stimulant 1 cap PO HS 12/27/23 [History] amantadine HCL [Amantadine] 100 mg PO TID@1000,1400,1800 12/27/23 [History] Follow up Appointment(s)/Referral(s): Marcial Villagran DO [Primary Care Provider] - 1-2 days Discharge Disposition: [facility] TO [facility]
--- NOTE | 2023-12-29 12:25 | P.CNNES ---
History of Present Illness Consult date: 12/28/23 Requesting physician: Romeo Fishman Reason for Consult: Altered mental status History of Present Illness: Patient is a 78-year-old male with history of advanced Parkinson's disease, came to the hospital by ambulance yesterday at 10:13 AM for altered mental status. Patient not able to provide any history. Family members were not present. As per EMS flowsheet, they arrived for weakness and altered mental status. When they arrived patient was alert and oriented x 3 (person place and event) but normally alert and oriented x 4 and presented with weakness. Patient mentioned that for the past 7 days patient has experienced increased weakness with. Of confusion. Patient denied any chest pain abdominal pain nausea back pain vertigo or shortness of breath. Patient has history of Parkinson's disease and is normally weak, but not as severe as he has been. During transport, patient was having visual hallucinations and stated there was someone in the seat next to us. Patient's blood pressure was 190/47, which improved to 155/73 and then 116/77, pulse rate 86, saturation 94% and glucose 116. Temperature 36.6. Blood test shows normal WBC, hemoglobin 11.2, normal PT PTT, normal pCO2. Sodium 147 potassium is normal, BUN 59 creatinine 2.23. Lactate 2.2. AST 61, ALT 11. UA negative, influenza, RSV and coronavirus PCR negative. Repeat BUN is 43.9 and creatinine 1.8. Vitamin B12 610, TSH 3.8. EKG shows sinus rhythm. CT head showed no acute intracranial process. Moderate to severe atrophy and chronic microvascular ischemic change. Paranasal mucosal disease. I personally reviewed CT head, and there is evidence of some small vessel disease, and severe paranasal sinus disease, with near complete opacification of bilateral sphenoid, frontal, ethmoid and maxillary sinuses, much worse on the l eft as compared to the right. Chest x-ray showed developing bronchopneumonia. Per nurse report, when he is awake, he tries to pull anything he can. He tries to get out of bed. Patient is currently on Precedex 0.4 mcg/kg/h. Patient is extremely rigid, tremulous. Patient did wake up enough to tell that he has no headache. Patient is not eating or drinking, was giving him medications. He is very tremulous, rigid. Not able to get his medications. Family is considering hospice. Patient was taking Sinemet CR 50/200 3 times daily, Sinemet 25/100, 1 tablet 3 times daily and amantadine 100 mg 3 times daily. Baclofen 20 mg at bedtime, Review of Systems ROS unobtainable: due to mental status Past Medical History Past Medical History: COPD, Hypertension Additional Past Medical History / Comment(s): parkinson's, sinusitis, History of Any Multi-Drug Resistant Organisms: None Reported Past Surgical History: Adenoidectomy, Tonsillectomy Additional Past Surgical History / Comment(s): nasal polyp, colonoscopy Past Anesthesia/Blood Transfusion Reactions: No Reported Reaction Past Psychological History: Anxiety Past Alcohol Use History: Rare Past Drug Use History: None Reported - Past Family History Mother Family Medical History: CVA/TIA, Myocardial Infarction (CT) Father Family Medical History: Cancer Additional Family Medical History / Comment(s): Father of metastatic cancer-primary unknown to patient. Medications and Allergies Home Medications Medication Instructions Recorded Confirmed Type Baclofen [Lioresal] 20 mg PO HS 02/26/17 12/28/23 History Carbidopa/Levodopa [Sinemet CR 1 tab PO TID@1000,1400,1800 02/26/17 12/28/23 History 50-200 mg] Citalopram Hydrobromide [CeleXA] 30 mg PO DAILY 02/26/17 12/28/23 History Alfuzosin HCl [Uroxatral ER] 10 mg PO HS 09/30/17 12/28/23 History Carbidopa-Levodopa 25-100 mg 1 tab PO TID@1000,1400,1800 08/19/23 12/28/23 History [Sinemet 25-100 mg] Docusate [Colace] 100 mg PO HS 12/27/23 12/28/23 History Lower Bowel Stimulant 1 cap PO HS 12/27/23 12/28/23 History amantadine HCL [Amantadine] 100 mg PO TID@1000,1400,1800 12/27/23 12/28/23 History Allergies Allergy/AdvReac Type Severity Reaction Status Date / Time Penicillins Allergy Itching Verified 12/27/23 12:16 ciprofloxacin AdvReac Confusion Verified 12/27/23 12:16 nitrofurantoin AdvReac Confusion Verified 12/27/23 12:16 [From Macrobid] Physical Examination - Vital Signs Vital Signs: Vital Signs Temp Pulse Pulse Pulse Resp BP BP 12/28/23 11:00 55 L 21 150/100 12/28/23 10:00 65 26 H 151/73 12/28/23 09:00 71 18 157/102 12/28/23 08:41 12/28/23 08:34 66 12/28/23 08:00 98.8 F 65 21 161/72 12/28/23 07:46 83 19 12/28/23 07:00 53 L 22 151/73 12/28/23 06:50 55 L 23 151/73 12/28/23 06:40 54 L 22 169/75 12/28/23 06:30 66 21 145/119 12/28/23 06:20 70 29 H 145/119 12/28/23 06:10 65 24 149/87 12/28/23 06:00 61 21 158/66 12/28/23 05:50 60 21 158/66 12/28/23 05:40 67 32 H 12/28/23 05:30 67 26 H 147/65 12/28/23 05:20 62 23 147/65 12/28/23 05:10 61 23 161/66 12/28/23 05:00 66 28 H 107/70 12/28/23 04:50 71 28 H 107/70 12/28/23 04:40 67 29 H 129/111 12/28/23 04:30 69 25 H 139/122 12/28/23 04:20 71 32 H 139/122 12/28/23 04:10 65 24 111/92 12/28/23 04:00 98.6 F 71 21 107/78 12/28/23 03:50 70 20 107/78 12/28/23 03:42 68 12/28/23 03:40 68 24 133/121 12/28/23 03:39 12/28/23 03:38 68 12/28/23 03:30 70 26 H 150/84 12/28/23 03:20 68 24 150/84 12/28/23 03:10 70 32 H 167/153 12/28/23 03:00 14 148/63 12/28/23 02:50 70 18 148/63 12/28/23 02:40 71 21 123/99 12/28/23 02:30 69 32 H 121/100 12/28/23 02:20 70 27 H 121/100 12/28/23 02:10 75 30 H 12/28/23 02:00 75 20 180/126 12/28/23 01:50 74 18 124/83 12/28/23 01:40 78 33 H 124/83 12/28/23 01:30 80 32 H 126/74 12/28/23 01:20 79 30 H 126/74 12/28/23 01:10 80 33 H 146/83 12/28/23 01:00 77 25 H 152/78 12/28/23 00:50 79 24 152/78 12/28/23 00:40 26 H 139/78 12/28/23 00:30 59 L 21 129/64 12/28/23 00:20 56 L 22 129/64 12/28/23 00:10 56 L 22 136/59 12/28/23 00:00 99.1 F 55 L 26 H 140/66 12/27/23 23:51 12/27/23 23:50 59 L 26 H 140/66 12/27/23 23:49 60 24 140/66 12/27/23 23:40 66 21 151/69 12/27/23 23:30 65 23 154/73 12/27/23 23:20 65 21 154/73 12/27/23 23:10 72 23 164/104 12/27/23 23:00 77 26 H 168/69 12/27/23 22:50 77 25 H 168/69 12/27/23 22:40 78 18 183/112 12/27/23 22:30 82 26 H 164/49 12/27/23 22:20 80 34 H 164/49 12/27/23 22:10 81 27 H 66/54 12/27/23 22:00 80 28 H 159/113 12/27/23 21:50 83 32 H 159/113 12/27/23 21:42 12/27/23 21:40 84 29 H 179/82 12/27/23 21:30 92 31 H 169/89 12/27/23 21:20 87 33 H 169/89 12/27/23 21:13 36 H 12/27/23 21:10 89 29 H 129/77 12/27/23 21:00 92 32 H 210/90 12/27/23 20:50 99 32 H 12/27/23 20:40 97 33 H 12/27/23 20:36 12/27/23 20:15 100.1 F H 87 34 H 12/27/23 20:00 98.0 F 83 34 H 106/57 12/27/23 17:34 85 12/27/23 17:22 86 32 H 12/27/23 16:51 82 20 171/89 12/27/23 16:50 171/89 12/27/23 16:40 84 26 H 115/92 12/27/23 16:30 90 34 H 115/92 12/27/23 16:20 90 37 H 115/92 12/27/23 16:10 84 34 H 115/92 12/27/23 16:00 83 24 115/92 12/27/23 15:50 83 115/92 12/27/23 15:40 115/92 12/27/23 15:30 84 115/92 12/27/23 15:20 84 24 115/92 12/27/23 15:16 82 20 115/92 12/27/23 15:10 81 176/80 12/27/23 15:00 176/80 12/27/23 14:50 176/80 12/27/23 14:40 26 H 176/80 12/27/23 14:30 79 31 H 176/80 12/27/23 14:20 81 27 H 176/80 12/27/23 14:10 81 20 176/80 12/27/23 14:00 16 176/80 12/27/23 13:50 81 45 H 176/80 12/27/23 13:40 25 H 12/27/23 13:30 25 H 176/80 12/27/23 13:20 12 176/80 12/27/23 13:13 77 20 176/80 12/27/23 13:10 73 27 H 176/80 12/27/23 13:00 76 27 H 176/80 12/27/23 12:50 71 29 H 176/80 12/27/23 12:40 22 12/27/23 12:30 73 17 176/80 12/27/23 12:20 72 16 12/27/23 12:10 70 15 176/80 12/27/23 12:00 71 21 176/80 12/27/23 11:50 72 44 H 176/80 12/27/23 11:40 73 24 176/80 BP Pulse Ox FiO2 12/28/23 11:00 97 12/28/23 10:00 96 12/28/23 09:00 93 L 12/28/23 08:41 97 12/28/23 08:34 12/28/23 08:00 95 12/28/23 07:46 95 12/28/23 07:00 100 12/28/23 06:50 100 12/28/23 06:40 100 12/28/23 06:30 98 12/28/23 06:20 97 12/28/23 06:10 96 12/28/23 06:00 97 12/28/23 05:50 99 12/28/23 05:40 97 12/28/23 05:30 97 12/28/23 05:20 98 12/28/23 05:10 99 12/28/23 05:00 98 12/28/23 04:50 97 12/28/23 04:40 96 12/28/23 04:30 96 12/28/23 04:20 96 12/28/23 04:10 95 12/28/23 04:00 97 12/28/23 03:50 96 12/28/23 03:42 12/28/23 03:40 97 12/28/23 03:39 95 12/28/23 03:38 12/28/23 03:30 95 12/28/23 03:20 96 12/28/23 03:10 97 12/28/23 03:00 96 12/28/23 02:50 97 12/28/23 02:40 96 12/28/23 02:30 96 12/28/23 02:20 96 12/28/23 02:10 95 12/28/23 02:00 95 12/28/23 01:50 95 12/28/23 01:40 92 L 12/28/23 01:30 95 12/28/23 01:20 93 L 12/28/23 01:10 94 L 12/28/23 01:00 93 L 12/28/23 00:50 95 12/28/23 00:40 95 12/28/23 00:30 100 12/28/23 00:20 100 12/28/23 00:10 100 12/28/23 00:00 100 15 12/27/23 23:51 100 12/27/23 23:50 100 12/27/23 23:49 100 12/27/23 23:40 100 12/27/23 23:30 100 12/27/23 23:20 100 12/27/23 23:10 100 12/27/23 23:00 100 12/27/23 22:50 100 12/27/23 22:40 100 12/27/23 22:30 100 12/27/23 22:20 100 12/27/23 22:10 100 12/27/23 22:00 79 L 12/27/23 21:50 95 12/27/23 21:42 60 12/27/23 21:40 91 L 12/27/23 21:30 93 L 12/27/23 21:20 98 12/27/23 21:13 12/27/23 21:10 96 12/27/23 21:00 99 12/27/23 20:50 96 12/27/23 20:40 98 12/27/23 20:36 93 L 12/27/23 20:15 171/67 91 L 12/27/23 20:00 97 12/27/23 17:34 195/75 12/27/23 17:22 92 L 12/27/23 16:51 95 12/27/23 16:50 12/27/23 16:40 12/27/23 16:30 12/27/23 16:20 12/27/23 16:10 12/27/23 16:00 92 L 12/27/23 15:50 92 L 12/27/23 15:40 92 L 12/27/23 15:30 94 L 12/27/23 15:20 94 L 12/27/23 15:16 94 L 12/27/23 15:10 94 L 12/27/23 15:00 92 L 12/27/23 14:50 94 L 12/27/23 14:40 94 L 12/27/23 14:30 91 L 12/27/23 14:20 94 L 12/27/23 14:10 93 L 12/27/23 14:00 94 L 12/27/23 13:50 94 L 12/27/23 13:40 95 12/27/23 13:30 93 L 12/27/23 13:20 95 12/27/23 13:13 95 12/27/23 13:10 12/27/23 13:00 12/27/23 12:50 12/27/23 12:40 12/27/23 12:30 12/27/23 12:20 12/27/23 12:10 12/27/23 12:00 12/27/23 11:50 12/27/23 11:40 Intake and Output 12/27/23 12/28/23 12/28/23 22:59 06:59 14:59 Intake Total 75 687.269 406.260 Output Total 500 300 Balance 75 187.269 106.260 Intake: IV 380 Invasive Line 1 20 Invasive Line 2 20 Sodium Chloride 0.45% 1, 300 000 ml @ 150 mls/hr IV . Q6H40M [facility] Rx#:[id number] Sodium Chloride 0.9% 1, 40 000 ml @ 20 mls/hr IV . Q24H [facility] Rx#:[id number] Intake, IV Titration 75 687.269 26.260 Amount Dexmedetomidine/0.9% NaCl 87.269 6.260 (Pmx) 400 mcg In Empty Bag 1 bag @ 0.2 MCG/KG/HR 3.13 mls/hr IV .Q24H [facility] Rx#:[id number] Dextrose 5% in Water 1, 75 600 000 ml @ 75 mls/hr IV . [id number] ONE Rx#:[id number] Sodium Chloride 0.9% 1, 20 000 ml @ 20 mls/hr IV . Q24H [facility] Rx#:[id number] Output: Urine 500 300 Other: Voiding Method Diaper Diaper External Catheter # Voids 1 # Bowel Movements 0 Weight 64.4 kg Patient is an elderly male, who appears somewhat cachectic, but in no acute distress. He is obtunded. Patient is not taking any vocalization. He is very encephalopathic. He does open his eyes to calling his names and makes eye contact. He denied headache by nodding "no". Speech and language functions cannot be assessed. Patient is not cooperating with examination. Attention, concentration is significantly limited and fund of knowledge cannot be assessed. On cranial nerve examination, pupils are equal, round and reacting to light, visual coon could not be tested. Oculocephalics are absent. Patient tries to tightly close his eyes. Visual coon could not be tested. Extraocular muscles are intact with no nystagmus. Face is symmetric, did not protrude his tongue. Lower cranial nerves cannot be assessed as he would not cooperate. On muscle strength testing, patient did not cooperate. He is extremely rigid in his arms and legs. Not able to passively bend his knees, elbows or shoulders. He is tightly clinging to his arms, crossed across his chest. Deep tendon reflexes cannot be assessed because of the rigidity. Sensory to touch could not be assessed. Patient does grimace to painful stimuli in the arms and legs. Cerebellar function cannot be checked. Tone is severely increased. Bulk of muscles is overall slightly diminished. Gait deferred.. On general examination, there is no carotid bruit or murmur, S1-S2 audible. Chest is clear on consultation. Abdomen is soft nontender. No organomegaly, bowel sounds present. Peripheral pulses are present. No peripheral edema. Results - Laboratory Findings CBC and BMP: 12/28/23 04:25 12/28/23 04:25 Abnormal Lab Findings: Abnormal Labs 12/27/23 12/27/23 12/27/23 10:53 10:53 10:53 WBC RBC 3.38 L Hgb 11.2 L Hct 33.7 L MCV MCH Immature Gran # Neutrophils # Eosinophils # ABG pO2 ABG HCO3 Sodium 147 H Chloride 117 H Carbon Dioxide 20 L Anion Gap BUN 59 H Creatinine 2.23 H Est GFR (CKD-EPI) BUN/Creatinine Ratio Glucose 106 H POC Glucose (mg/dL) Plasma Lactic Acid Fidel AST 61 H Urine Protein 1+ H Urine Ketones Trace H Hyaline Casts 3 H Urine Mucus Rare H 12/27/23 12/27/23 12/27/23 10:53 19:36 20:37 WBC RBC Hgb Hct MCV MCH Immature Gran # Neutrophils # Eosinophils # ABG pO2 76 L ABG HCO3 20 L Sodium Chloride Carbon Dioxide Anion Gap BUN Creatinine Est GFR (CKD-EPI) BUN/Creatinine Ratio Glucose POC Glucose (mg/dL) 118 H Plasma Lactic Acid Fidel 2.2 H* AST Urine Protein Urine Ketones Hyaline Casts Urine Mucus 12/28/23 12/28/23 04:25 04:25 WBC 11.63 H RBC 3.17 L Hgb 10.2 L Hct 31.5 L MCV 99.4 H MCH 32.2 H Immature Gran # 0.05 H Neutrophils # 9.82 H Eosinophils # 0.01 L ABG pO2 ABG HCO3 Sodium 149 H Chloride 117 H Carbon Dioxide 18.8 L Anion Gap 13.20 H BUN 43.9 H Creatinine 1.8 H Est GFR (CKD-EPI) 38 L BUN/Creatinine Ratio 24.39 H Glucose 144 H POC Glucose (mg/dL) Plasma Lactic Acid Fidel AST Urine Protein Urine Ketones Hyaline Casts Urine Mucus Assessment and Plan Assessment: * Altered mental status, likely due to toxic metabolic encephalopathy * Seizure-like activity, now resolved. * Acute pansinusitis * Acute kidney injury, improving * Hypernatremia * Anemia * Lactic acidosis, normal now * COPD exacerbation with possible bronchopneumonia Plan: * EEG was performed, which was abnormal due to background slowing of mild to moderate degree suggestive of encephalopathy. Additional possible left frontal parietal slowing, may suggest focal cortical neuronal dysfunction. No epileptiform activity was seen. * Patient is extremely rigid/parkinsonian. This may be due to patient not able to take his parkinsonian medications resulting in severe rigidity. * B12 610, TSH 3.85 normal. * Stop amantadine because of renal insufficiency. * Need to place the NG tube and start feeding and starting Sinemet. * Nurse reported that patient is undergoing hospice, as per instruction from patient's . * Neurology will sign off. Please reconsult if any concerns. Thank you for the consult.
== END 2023-12-28 16:09 | disposition hospice, inpatient (51) | DRG 56 ==
LOC: EC 10:13 → 5NMEDONC 12:44 → 2SICU 21:16
PROVIDERS: ADMIT Internal Medicine; ATTEND Internal Medicine
PROC: 3E0F7SF Introduction of Other Gas into Respiratory Tract, Via Natural or Artificial Opening (ICD-10-PCS; 2023-12-27)
PROC: 4A10X4Z Monitoring of Central Nervous Electrical Activity, External Approach (ICD-10-PCS; principal; 2023-12-28)
DX: G20.B1 Parkinson's disease with dyskinesia, without mention of fluctuations (principal); G93.41 Metabolic encephalopathy; J18.8 Other pneumonia, unspecified organism; J96.01 Acute respiratory failure with hypoxia; F02.84 Dementia in other diseases classified elsewhere, unspecified severity, with anxiety; E87.0 Hyperosmolality and hypernatremia; E87.1 Hypo-osmolality and hyponatremia; J44.0 Chronic obstructive pulmonary disease with (acute) lower respiratory infection; E87.20 Acidosis, unspecified; J44.1 Chronic obstructive pulmonary disease with (acute) exacerbation; N17.9 Acute kidney failure, unspecified; R53.1 Weakness; E86.0 Dehydration; I12.9 Hypertensive chronic kidney disease with stage 1 through stage 4 chronic kidney disease, or unspecified chronic kidney disease; N18.9 Chronic kidney disease, unspecified; R29.6 Repeated falls; Z88.1 Allergy status to other antibiotic agents; Z88.0 Allergy status to penicillin; E11.22 Type 2 diabetes mellitus with diabetic chronic kidney disease; N40.0 Benign prostatic hyperplasia without lower urinary tract symptoms; Z66 Do not resuscitate; Z51.5 Encounter for palliative care; Z79.899 Other long term (current) drug therapy; Z82.49 Family history of ischemic heart disease and other diseases of the circulatory system
CPT/HCPCS: 36415; 36600; 70450; 71045; 80048; 80053; 81001; 82607; 82747; 82805; 83605; 83735; 84145; 84443; 85025; 85610; 85730; 87636; 93005; 94640; 94660; 95816; 96361; 96374; 99285

== ENCOUNTER 2023-12-28 14:35 | Inpatient (IN) | payer MEDICAID ==
[2023-12-28] MEDS ORDERED: HALOPERIDOL LACTATE 5 MG/ML 1 ML VIAL IM PRN (14:59)
[2023-12-28] MEDS ORDERED: ATROPINE OPHTH SOLN 1% 5ML BTL SUBLINGUAL PRN (14:59)
[2023-12-28] MEDS: MORPHINE SULFATE (100 MG/2 ML) 100 MG in SODIUM CHLORIDE 0.9% 100 ML IV SCH (16:22)
[2023-12-28] MEDS: SCOPOLAMINE 1 MG/72 HR PATCH TRANSDERM SCH (17:42)
--- NOTE | 2023-12-29 14:03 | PN ---
PROGRESS NOTE SUBJECTIVE: This is an 78-year-old gentleman, who was admitted with acute hypoxic respiratory failure, also had COPD, and as well as Parkinson's dementia. The patient is on hospice care. The patient is on morphine drip at this time. PHYSICAL EXAMINATION: GENERAL: The patient is sedated. VITAL SIGNS: Pulse 69, and pulse ox n. CARDIOVASCULAR: S1, S2 n ABDOMEN: Soft. NERVOUS SYSTEM: Sedated. LABORATORY DATA: Not available. ASSESSMENT: 1. Chronic obstructive pulmonary disease, acute exacerbation with acute hypoxic respiratory failure, on admission. 2. Severe parkinsonism. 3. Dementia. 4. Weakness. 5. Hyponatremia. 6. Multiple complex medical issues. 7. No code. No CPR. No vent. 8. Comfort measures and hospice. RECOMMENDATIONS: Recommend to continue current management and continue symptomatic treatment. The patient is currently on morphine drip. I would also recommend to continue the rest of the symptomatic treatment. Overall, prognosis guarded. Further recommendations to follow. DOTTIE / REINA: [id number] / MTDD
[2023-12-30] MEDS: LORazepam 2 MG/ML INJ IV PRN (10:47)
--- NOTE | 2023-12-30 23:28 | PN ---
PROGRESS NOTE DATE OF SERVICE: 12/30/2023 SUBJECTIVE: This is an 78-year-old gentleman, who was on hospice for multiple medical issues including end-stage COPD and Parkinson's. He is on morphine drip. The patient is slightly more alert today. No chest pain. No palpitation. PHYSICAL EXAMINATION: VITAL SIGNS: Pulse ox 97% on 2 L. Respirations 15. CHEST: Few scattered rhonchi and crackles. ABDOMEN: Soft. NERVOUS SYSTEM: Sedated. LABORATORY DATA: Not available. ASSESSMENT: 1. Chronic obstructive pulmonary disease acute exacerbation with acute hypoxic respiratory failure, on admission. 2. Severe Parkinsonism. 3. Dementia. 4. Weakness. 5. Hyponatremia. 6. Multiple complex medical issues. 7. No code, no CPR, no vent. 8. Comfort measures and hospice, on morphine drip. RECOMMENDATIONS: Recommend to continue current medications and continue symptomatic treatment. Continue with Ativan p.r.n. Titrate morphine drip. Prognosis extremely guarded. Closely follow with Case Management and further recommendations to follow. MMANGELAL / BRANNONN: [id number] /
[2023-12-31] MEDS: ACETAMINOPHEN SUPPOSITORY 650 MG SUPP RECTAL PRN (11:18)
--- NOTE | 2023-12-31 12:51 | PN ---
PROGRESS NOTE DATE OF SERVICE: 12/31/2023 SUBJECTIVE: This is an 78-year-old gentleman, who is on hospice care, is more sedated today. The patient is running some fever. Morphine at 6 mg/h. OBJECTIVE: VITAL SIGNS: Sedated. Pulse is 90, blood pressure 115/55. CHEST: Clear. CARDIOVASCULAR: S1, S2 muffled. NERVOUS SYSTEM: Unresponsive. LABORATORY DATA: Not available. ASSESSMENT: 1. Chronic obstructive pulmonary disease acute exacerbation with acute hypoxic respiratory failure. 2. Severe Parkinson's. 3. Dementia. 4. Weakness. 5. Hyponatremia. 6. Multiple complex medical issues. 7. No code. No CPR. No vent. 8. Comfort measures and hospice, on morphine drip. RECOMMENDATIONS: Recommend to continue current management. Continue symptomatic treatment. Continue with morphine drip. Further recommendations to follow. DOTTIE / BRANNONN: [id number] /
[2024-01-01 09:23] VITALS: BP 115/55; PULSE 97; TEMP 102.6
--- NOTE | 2024-01-01 20:38 | PN ---
PROGRESS NOTE DATE OF SERVICE: 01/01/2024 SUBJECTIVE: This is an 78-year-old gentleman, who is on comfort measures on morphine drip at 7 mg/hour. The patient is restless, sedated. OBJECTIVE: VITAL SIGNS: Pulse is 97, blood pressure 115/58, respirations 18. CHEST: Few scattered rhonchi. ABDOMEN: Soft. NERVOUS SYSTEM: Sedated. LABORATORY DATA: Not available. ASSESSMENT: 1. Chronic obstructive pulmonary disease acute exacerbation with acute hypoxemic respiratory failure present on admission. 2. History of Parkinson's. 3. Dementia. 4. Weakness. 5. Multiple medical issues. 6. No code, no CPR, no vent. 7. Comfort measures, on morphine drip. RECOMMENDATIONS: Recommend to continue current medications and titrate the morphine drip to comfort and continue rest of medications. Prognosis guarded. Further recommendations to follow. DOTTIE / REINA: [id number] /
--- NOTE | 2024-01-02 19:06 | P.PN ---
Progress Note - Text Progress Note Date: 01/02/24 Hospital course: Patient with comfort cares measures. On morphine drip. On examination: 102.6. 97. 18, 115/55, 87% on 2 L Laying in bed. A bit short of breath Respiratory: Effort increased, diminished breath sounds Neurological: Lethargic Assessment plan: -Comfort measures -Parkinson's disease Essential hypertension COPD -Comfort measures. DNR Continue with comfort care plan. Morphine drip.
[2024-01-03 06:50] VITALS: RESP 0
--- NOTE | 2024-01-03 19:14 | P.DS ---
Providers Date of admission: 12/28/23 16:09 Expected date of discharge: 01/03/24 (Patient ) Attending physician: Gonzales Cole Primary care physician: [facility] Course: Hospital course: Patient with comfort cares measures. On morphine drip. Patient Cause of : Parkinson disease Plan - Discharge Summary New Discharge Prescriptions: Discontinued Citalopram Hydrobromide [CeleXA] 30 mg PO DAILY Carbidopa/Levodopa [Sinemet CR 50-200 mg] 1 tab PO TID@1000,1400,1800 Baclofen [Lioresal] 20 mg PO HS Alfuzosin HCl [Uroxatral ER] 10 mg PO HS Carbidopa-Levodopa 25-100 mg [Sinemet 25-100 mg] 1 tab PO TID@1000,1400,1800 amantadine HCL [Amantadine] 100 mg PO TID@1000,1400,1800 Lower Bowel Stimulant 1 cap PO HS Docusate [Colace] 100 mg PO HS Discharge Disposition: - Preliminary Cause of Preliminary Cause of : Parkinson disease
== END 2024-01-03 10:43 | disposition expired | DRG 951 ==
LOC: 2SICU 16:09 → 5NMEDONC 17:58
PROVIDERS: ADMIT Hospitalist; ATTEND Hospitalist
DX: Z51.5 Encounter for palliative care (principal); J96.01 Acute respiratory failure with hypoxia; E87.1 Hypo-osmolality and hyponatremia; F02.84 Dementia in other diseases classified elsewhere, unspecified severity, with anxiety; J44.1 Chronic obstructive pulmonary disease with (acute) exacerbation; G20.B1 Parkinson's disease with dyskinesia, without mention of fluctuations; R53.1 Weakness; E86.0 Dehydration; E86.9 Volume depletion, unspecified; R29.6 Repeated falls; I10 Essential (primary) hypertension; Z66 Do not resuscitate; Z88.0 Allergy status to penicillin; Z88.1 Allergy status to other antibiotic agents; Z11.52 Encounter for screening for COVID-19; Z79.899 Other long term (current) drug therapy
CPT/HCPCS: 94760